=== PATIENT | male | born 1935 | race Caucasian/White ===

== ENCOUNTER → 2017-12-31 13:15 | Outpatient (CLI) | payer MEDICARE, OTHER, SELFPAY ==
--- NOTE | 2017-12-31 13:19 | RAD_ITS ---
STUDY: X-RAY - PELVIS AND LEFT HIP REASON FOR EXAM: Male, 82 years old. Post operative assessment TECHNIQUE: Three views of the pelvis and hip were obtained. COMPARISON: December 02, 2017 FINDINGS: The bowel gas pattern is unremarkable. Small sutures are again seen in the lower pelvis. There are mild degenerative changes in the lower lumbar spine. The visualized iliac wings, sacroiliac joints and sacrum are unremarkable. No abnormalities are seen in the visualized superior and inferior pubic rami. Normal appearing pubic symphysis. The visualized ischial tuberosities are unremarkable. Hardware is again seen in the proximal left femur. The hardware is intact. Subacute fractures are again seen in the intertrochanteric region of the left femur and in the lesser trochanter. There is callus formation around the lesser trochanter. The acetabulum shows no significant abnormalities. The hip joint is normal in appearance. RAD/Hip 2-3 Views with Pelvis IMPRESSION: Surgical changes are again seen in the proximal left femur. The hardware appears intact. Subacute fractures are again seen in the intertrochanteric region of the left femur and in the lesser trochanter with callus formation around the lesser trochanter. Electronically Signed: Hellen Sullivan MD at 0:54 EST Tel Direct: [phone], Service support ,
== END ==
PROVIDERS: Family Provider Family Medicine Geriatric Medicine; PCP Family Medicine Geriatric Medicine; Visit Provider Orthopaedic Surgery
DX: M25.552 Pain in left hip (principal)
CPT/HCPCS: 73502

== ENCOUNTER → 2018-05-09 05:00 | Outpatient (REF) | payer MEDICARE, OTHER, SELFPAY ==
[2018-05-10 07:50] LABS: Absolute Lymphocyte Count 1.95 X10^3/ul (0.83-4.51); Absolute Neutrophil Count 3.9 X10^3/uL (2.0-7.7); Basophil# 0.02 X10^3/uL; Basophil% 0.3 % (0-1); Eosinophil# 0.32 X10^3/uL; Eosinophils% 4.6 % (0-5); Hematocrit 41.4 % (40-54); Hemoglobin 13.2 g/dl (13.0-16.5); Lymphocyte # 1.95 X10^3/ul (4.0); Mean Corp Hgb Conc 31.9 g/gl (32-36); Mean Platelet Vol. 10.2 fl (6.2-12.0); Monocyte# 0.78 X10^3/uL; Monocyte% 11.2 % (0-10); Neutrophil # 3.89 X10^3/uL (2.7-7.7); Neutrophil % 55.8 % (47-70); Platelet Count 167 K/mm3 (150-450); RBC Distribution Width CV 16.5 % (11.6-14.6); RBC Distribution Width SD 54.1 fl (35.1-43.9); Red Blood Count 4.55 M/mm3 (4.6-6.2)
[2018-05-10 07:51] LABS: POSITIVE COUNT NO; POSITIVE DIFFERENTIAL NO; POSITIVE MORPHOLOGY NO
[2018-05-10 07:53] LABS: International Normalized Ratio 1.4; Prothrombin Time (Protime)PT. 16.7 SECONDS (11.7-14.9)
[2018-05-10 08:01] LABS: BUN 15 mg/dL (7-18); Creatinine, Serum 0.77 mg/dL (0.70-1.30); Glucose 84 mg/dL (74-106)
[2018-05-10 08:02] LABS: Anion Gap 7 (5-15); BUN/Creat Ratio 19.6 RATIO (10-20); Calcium,Total 8.7 mg/dL (8.5-10.1); Chloride 103 mmol/L (98-107); Cholesterol 104 mg/dL (200); EST Glomerular Filtration Rate 103 mL/min (>60); Est Glom Filt Rate - Afr Amer 125 mL/min (>60); High Density Lipoprotein 46 mg/dL; Potassium 4.5 mmol/L (3.5-5.1); Sodium Level 140 mmol/L (136-145); Triglycerides 50 mg/dL; Very Low Density Lipoprotein 10 mg/dL (5-40)
[2018-05-10 08:10] LABS: Valproic Acid (Depakene) Level 43 ug/mL (50-100)
== END ==
LOC: OLS.WHLCAR 05:00
PROVIDERS: Visit Provider Family Medicine
DX: D64.9 Anemia, unspecified (principal); F03.90 Unspecified dementia, unspecified severity, without behavioral disturbance, psychotic disturbance, mood disturbance, and anxiety; E78.5 Hyperlipidemia, unspecified; Z79.01 Long term (current) use of anticoagulants
CPT/HCPCS: 36415; 80048; 80061; 80164; 85025; 85610

== ENCOUNTER → 2018-05-12 05:00 | Outpatient (REF) | payer MEDICARE, OTHER, SELFPAY ==
[2018-05-12 08:01] LABS: International Normalized Ratio 1.5; Prothrombin Time (Protime)PT. 17.7 SECONDS (11.7-14.9)
== END ==
LOC: OLS.WHLCAR 05:00
PROVIDERS: Visit Provider Family Medicine
DX: D64.9 Anemia, unspecified (principal); F03.90 Unspecified dementia, unspecified severity, without behavioral disturbance, psychotic disturbance, mood disturbance, and anxiety; E78.5 Hyperlipidemia, unspecified; Z79.01 Long term (current) use of anticoagulants
CPT/HCPCS: 36415; 85610

== ENCOUNTER → 2018-05-13 06:26 | Outpatient (REF) | payer MEDICARE, OTHER, SELFPAY ==
[2018-05-13 07:41] LABS: Absolute Neutrophil Count 17.6 X10^3/uL (2.0-7.7); Basophil# 0.01 X10^3/uL; Basophil% 0.1 % (0-1); Hematocrit 42.6 % (40-54); Hemoglobin 13.6 g/dl (13.0-16.5); Lymphocyte % 4.5 % (19-41); Mean Corp Hgb Conc 31.9 g/gl (32-36); Mean Corpuscular Hgb 29.1 pg (27.0-32.0); Mean Corpuscular Volume 91.2 fL (80-94); Mean Platelet Vol. 10.8 fl (6.2-12.0); Monocyte# 1.26 X10^3/uL; Monocyte% 6.3 % (0-10); Neutrophil # 17.63 X10^3/uL (2.7-7.7); Neutrophil % 88.7 % (47-70); Platelet Count 134 K/mm3 (150-450); RBC Distribution Width CV 17.1 % (11.6-14.6); RBC Distribution Width SD 56.9 fl (35.1-43.9); Red Blood Count 4.67 M/mm3 (4.6-6.2); White Blood Count 19.9 K/mm3 (4.4-11.0)
[2018-05-13 07:42] LABS: POSITIVE COUNT NO; POSITIVE DIFFERENTIAL NO; POSITIVE MORPHOLOGY NO
[2018-05-13 07:50] LABS: Anion Gap 9 (5-15); BUN 32 mg/dL (7-18); Chloride 112 mmol/L (98-107); EST Glomerular Filtration Rate 44 mL/min (>60); Est Glom Filt Rate - Afr Amer 54 mL/min (>60); Glucose 146 mg/dL (74-106); Potassium 3.7 mmol/L (3.5-5.1); Sodium Level 143 mmol/L (136-145)
[2018-05-13 08:33] LABS: Color, Urine Red (Yellow); Glucose, Dipstick Normal (Normal); Ketone-Dipstick 5 mg/dl (Negative); Leukocyte Esterase-Dipstick 500 /ul (Negative); Nitrite-Dipstick Positive (Negative); Occult Blood-Urine 250 /ul (Negative); Protein-Dipstick 500 mg/dl (Negative); Urine Bilirubin Dipstick Negative (Negative); Urine Clarity Turbid (Clear); Urine Urobilinogen Normal (Normal)
== END ==
LOC: OLS.WHLCAR 06:26
PROVIDERS: Visit Provider Family Medicine
DX: D64.9 Anemia, unspecified (principal); N39.0 Urinary tract infection, site not specified; F03.90 Unspecified dementia, unspecified severity, without behavioral disturbance, psychotic disturbance, mood disturbance, and anxiety; E78.5 Hyperlipidemia, unspecified; R53.83 Other fatigue; R50.9 Fever, unspecified; E03.9 Hypothyroidism, unspecified; Z79.01 Long term (current) use of anticoagulants
CPT/HCPCS: 36415; 80048; 81002; 85025; 87077; 87086; 87088; 87186

== ENCOUNTER → 2018-05-16 05:00 | Outpatient (REF) | payer MEDICARE, OTHER, SELFPAY ==
[2018-05-16 09:25] LABS: Absolute Lymphocyte Count 1.19 X10^3/ul (0.83-4.51); Absolute Neutrophil Count 6.8 X10^3/uL (2.0-7.7); Basophil# 0.01 X10^3/uL; Basophil% 0.1 % (0-1); Eosinophil# 0.05 X10^3/uL; Eosinophils% 0.5 % (0-5); Hemoglobin 13.2 g/dl (13.0-16.5); Lymphocyte # 1.19 X10^3/ul (4.0); Lymphocyte % 12.7 % (19-41); Mean Corp Hgb Conc 31.4 g/gl (32-36); Mean Corpuscular Hgb 28.9 pg (27.0-32.0); Mean Corpuscular Volume 91.9 fL (80-94); Mean Platelet Vol. 10.8 fl (6.2-12.0); Monocyte# 1.35 X10^3/uL; Monocyte% 14.4 % (0-10); Neutrophil # 6.77 X10^3/uL (2.7-7.7); Neutrophil % 72.3 % (47-70); Platelet Count 128 K/mm3 (150-450); RBC Distribution Width CV 17.1 % (11.6-14.6); RBC Distribution Width SD 57.9 fl (35.1-43.9); Red Blood Count 4.57 M/mm3 (4.6-6.2); White Blood Count 9.4 K/mm3 (4.4-11.0)
[2018-05-16 09:32] LABS: POSITIVE COUNT NO; POSITIVE DIFFERENTIAL NO; POSITIVE MORPHOLOGY NO
[2018-05-16 09:37] LABS: International Normalized Ratio 3.4; Prothrombin Time (Protime)PT. 34.5 SECONDS (11.7-14.9)
[2018-05-16 09:42] LABS: Albumin, Serum 2.4 g/dL (3.2-5.0); Anion Gap 5 (5-15); BUN 25 mg/dL (7-18); BUN/Creat Ratio 30.8 RATIO (10-20); Calcium,Total 8.8 mg/dL (8.5-10.1); Chloride 114 mmol/L (98-107); Creatinine, Serum 0.81 mg/dL (0.70-1.30); EST Glomerular Filtration Rate 97 mL/min (>60); Est Glom Filt Rate - Afr Amer 117 mL/min (>60); Glucose 96 mg/dL (74-106); Potassium 3.6 mmol/L (3.5-5.1); Prealbumin 8.7 mg/dL (20.0-40.0); Sodium Level 151 mmol/L (136-145)
== END ==
LOC: OLS.WHLCAR 05:00
PROVIDERS: Visit Provider Family Medicine
DX: D64.9 Anemia, unspecified (principal); F03.90 Unspecified dementia, unspecified severity, without behavioral disturbance, psychotic disturbance, mood disturbance, and anxiety; E78.5 Hyperlipidemia, unspecified; Z79.01 Long term (current) use of anticoagulants
CPT/HCPCS: 36415; 80048; 82040; 84134; 85025; 85610

== ENCOUNTER → 2018-05-19 05:00 | Outpatient (REF) | payer MEDICARE, OTHER, SELFPAY ==
[2018-05-19 08:53] LABS: International Normalized Ratio 3.1; Prothrombin Time (Protime)PT. 31.9 SECONDS (11.7-14.9)
== END ==
LOC: OLS.WHLCAR 05:00
PROVIDERS: Visit Provider Family Medicine
DX: Z79.01 Long term (current) use of anticoagulants (principal)
CPT/HCPCS: 36415; 85610

== ENCOUNTER → 2018-05-23 05:00 | Outpatient (REF) | payer MEDICARE, SELFPAY ==
[2018-05-23 08:55] LABS: International Normalized Ratio 1.4; Prothrombin Time (Protime)PT. 17.2 SECONDS (11.7-14.9)
== END ==
LOC: OLS.WHLCAR 05:00
PROVIDERS: Visit Provider Family Medicine
DX: Z79.01 Long term (current) use of anticoagulants (principal)
CPT/HCPCS: 36415; 85610

== ENCOUNTER → 2018-05-30 05:00 | Outpatient (REF) | payer MEDICARE, OTHER, SELFPAY ==
[2018-05-30 09:48] LABS: International Normalized Ratio 1.5; Prothrombin Time (Protime)PT. 18.2 SECONDS (11.7-14.9)
== END ==
LOC: OLS.WHLCAR 05:00
PROVIDERS: Visit Provider Family Medicine
DX: Z79.01 Long term (current) use of anticoagulants (principal)
CPT/HCPCS: 36415; 85610

== ENCOUNTER → 2018-05-31 22:00 | Outpatient (REF) | payer MEDICARE, OTHER, SELFPAY ==
[2018-06-01 08:03] LABS: Color, Urine Yellow (Yellow); Glucose, Dipstick Normal (Normal); Ketone-Dipstick Negative (Negative); Leukocyte Esterase-Dipstick 500 /ul (Negative); Nitrite-Dipstick Negative (Negative); Occult Blood-Urine 250 /ul (Negative); Protein-Dipstick 100 mg/dl (Negative); Specific Gravity, Urine 1.015 (1.002-1.030); Urine Bilirubin Dipstick Negative (Negative); Urine Clarity Sl. Cloudy (Clear); Urine Urobilinogen Normal (Normal)
== END ==
LOC: OLS.WHLCAR 22:00
PROVIDERS: Visit Provider Family Medicine
DX: N39.0 Urinary tract infection, site not specified (principal)
CPT/HCPCS: 81002; 87077; 87086; 87088; 87186

== ENCOUNTER → 2018-06-06 05:00 | Outpatient (REF) | payer MEDICARE, OTHER, SELFPAY ==
[2018-06-06 09:27] LABS: International Normalized Ratio 1.1; Prothrombin Time (Protime)PT. 14.5 SECONDS (11.7-14.9)
[2018-06-06 09:33] LABS: Hematocrit 42.4 % (40-54); Hemoglobin 13.6 g/dl (13.0-16.5); Mean Corp Hgb Conc 32.1 g/gl (32-36); Mean Corpuscular Hgb 29.6 pg (27.0-32.0); Mean Corpuscular Volume 92.4 fL (80-94); Mean Platelet Vol. 10.2 fl (6.2-12.0); Platelet Count 226 K/mm3 (150-450); RBC Distribution Width CV 16.5 % (11.6-14.6); RBC Distribution Width SD 54.5 fl (35.1-43.9); Red Blood Count 4.59 M/mm3 (4.6-6.2)
[2018-06-06 09:38] LABS: Anion Gap 11 (5-15); BUN 18 mg/dL (7-18); BUN/Creat Ratio 21.2 RATIO (10-20); Calcium,Total 8.5 mg/dL (8.5-10.1); Chloride 102 mmol/L (98-107); Creatinine, Serum 0.85 mg/dL (0.70-1.30); EST Glomerular Filtration Rate 92 mL/min (>60); Est Glom Filt Rate - Afr Amer 111 mL/min (>60); Glucose 129 mg/dL (74-106); Potassium 4.1 mmol/L (3.5-5.1); Sodium Level 137 mmol/L (136-145)
[2018-06-06 09:40] LABS: Scan Indicated on CBC? Y/N NO
== END ==
LOC: OLS.WHLCAR 05:00
PROVIDERS: Visit Provider Family Medicine
DX: E78.5 Hyperlipidemia, unspecified (principal); E64.9 Sequelae of unspecified nutritional deficiency; F03.90 Unspecified dementia, unspecified severity, without behavioral disturbance, psychotic disturbance, mood disturbance, and anxiety; Z79.01 Long term (current) use of anticoagulants
CPT/HCPCS: 36415; 80048; 85027; 85610

== ENCOUNTER → 2018-06-13 05:00 | Outpatient (REF) | payer MEDICARE, OTHER, SELFPAY ==
[2018-06-13 09:36] LABS: International Normalized Ratio 1.5
== END ==
LOC: OLS.WHLCAR 05:00
PROVIDERS: Visit Provider Family Medicine
DX: Z79.01 Long term (current) use of anticoagulants (principal)
CPT/HCPCS: 36415; 85610

== ENCOUNTER → 2018-06-20 05:00 | Outpatient (REF) | payer MEDICARE, OTHER, SELFPAY ==
[2018-06-20 07:14] LABS: International Normalized Ratio 1.5; Prothrombin Time (Protime)PT. 17.7 SECONDS (11.7-14.9)
== END ==
LOC: OLS.WHLCAR 05:00
PROVIDERS: Visit Provider Family Medicine
DX: Z79.01 Long term (current) use of anticoagulants (principal)
CPT/HCPCS: 36415; 85610

== ENCOUNTER → 2018-06-27 05:00 | Outpatient (REF) | payer MEDICARE, OTHER, SELFPAY ==
[2018-06-27 10:01] LABS: International Normalized Ratio 2.1; Prothrombin Time (Protime)PT. 23.3 SECONDS (11.7-14.9)
== END ==
LOC: OLS.WHLCAR 05:00
PROVIDERS: Visit Provider Family Medicine
DX: E78.5 Hyperlipidemia, unspecified (principal); D64.9 Anemia, unspecified; F03.90 Unspecified dementia, unspecified severity, without behavioral disturbance, psychotic disturbance, mood disturbance, and anxiety
CPT/HCPCS: 36415; 85610

== ENCOUNTER → 2018-07-02 06:30 | Outpatient (REF) | payer MEDICARE, OTHER, SELFPAY | LOC: OLS.WHLCAR 06:30 | PROVIDERS: Visit Provider Family Medicine | DX: L02.31 Cutaneous abscess of buttock (principal); D64.9 Anemia, unspecified; R62.7 Adult failure to thrive | CPT/HCPCS: 87070; 87077; 87186; 87205 ==

== ENCOUNTER → 2018-07-04 05:00 | Outpatient (REF) | payer MEDICARE, OTHER, SELFPAY ==
[2018-07-04 09:58] LABS: International Normalized Ratio 2.4
== END ==
LOC: OLS.WHLCAR 05:00
PROVIDERS: Visit Provider Family Medicine
DX: D64.9 Anemia, unspecified (principal); F03.90 Unspecified dementia, unspecified severity, without behavioral disturbance, psychotic disturbance, mood disturbance, and anxiety; E78.5 Hyperlipidemia, unspecified
CPT/HCPCS: 36415; 85610

== ENCOUNTER → 2018-07-07 05:00 | Outpatient (REF) | payer MEDICARE, OTHER, SELFPAY ==
[2018-07-07 08:31] LABS: International Normalized Ratio 2.8; Prothrombin Time (Protime)PT. 29.4 SECONDS (11.7-14.9)
== END ==
LOC: OLS.WHLCAR 05:00
PROVIDERS: Visit Provider Family Medicine
DX: Z79.2 Long term (current) use of antibiotics (principal)
CPT/HCPCS: 36415; 85610

== ENCOUNTER → 2018-07-11 05:00 | Outpatient (REF) | payer MEDICARE, OTHER, SELFPAY ==
[2018-07-11 09:57] LABS: International Normalized Ratio 2.9; Prothrombin Time (Protime)PT. 30.6 SECONDS (11.7-14.9)
== END ==
LOC: OLS.WHLCAR 05:00
PROVIDERS: Visit Provider Family Medicine
DX: D64.9 Anemia, unspecified (principal); F03.90 Unspecified dementia, unspecified severity, without behavioral disturbance, psychotic disturbance, mood disturbance, and anxiety; E78.5 Hyperlipidemia, unspecified
CPT/HCPCS: 36415; 85610

== ENCOUNTER → 2018-07-14 05:00 | Outpatient (REF) | payer MEDICARE, OTHER, SELFPAY ==
[2018-07-14 09:21] LABS: International Normalized Ratio 2.6; Prothrombin Time (Protime)PT. 27.6 SECONDS (11.7-14.9)
== END ==
LOC: OLS.WHLCAR 05:00
PROVIDERS: Visit Provider Family Medicine
DX: Z79.2 Long term (current) use of antibiotics (principal)
CPT/HCPCS: 36415; 85610

== ENCOUNTER → 2018-07-18 05:00 | Outpatient (REF) | payer MEDICARE, OTHER, SELFPAY ==
[2018-07-18 10:03] LABS: Prothrombin Time (Protime)PT. 31.7 SECONDS (11.7-14.9)
== END ==
LOC: OLS.WHLCAR 05:00
PROVIDERS: Visit Provider Family Medicine
DX: D64.9 Anemia, unspecified (principal); F03.90 Unspecified dementia, unspecified severity, without behavioral disturbance, psychotic disturbance, mood disturbance, and anxiety; E78.5 Hyperlipidemia, unspecified
CPT/HCPCS: 36415; 85610

== ENCOUNTER → 2018-07-22 04:00 | Outpatient (REF) | payer MEDICARE, OTHER, SELFPAY ==
[2018-07-22 08:51] LABS: Bacteria 0 SEEN /hpf (None Seen); Mucous, Urine 0 SEEN /hpf (<or=2+); White Blood Cells 0 SEEN /hpf (0-5)
[2018-07-22 08:56] LABS: Color, Urine Yellow (Yellow); Glucose, Dipstick Normal (Normal); Ketone-Dipstick Negative (Negative); Leukocyte Esterase-Dipstick 500 /ul (Negative); Nitrite-Dipstick Positive (Negative); Occult Blood-Urine 250 /ul (Negative); Protein-Dipstick 100 mg/dl (Negative); Specific Gravity, Urine 1.015 (1.002-1.030); Urine Bilirubin Dipstick Negative (Negative); Urine Clarity Sl. Cloudy (Clear); Urine Urobilinogen Normal (Normal)
[2018-07-22 09:06] LABS: International Normalized Ratio 1.8
[2018-07-22 09:11] LABS: Squamous Epithelial Cells - UA 0-5 SEEN /hpf (0-5)
[2018-07-22 09:12] LABS: Amorphous Sediment 1+; Red Blood Cells-Urine 50-100 SEEN /hpf (0-5); Triple Phosphate Crystals Ur 4+ /hpf (<or=1+)
[2018-07-22 09:16] LABS: Valproic Acid (Depakene) Level 38 ug/mL (50-100)
== END ==
LOC: OLS.WHLCAR 04:00
PROVIDERS: Visit Provider Family Medicine
DX: D64.9 Anemia, unspecified (principal); F03.90 Unspecified dementia, unspecified severity, without behavioral disturbance, psychotic disturbance, mood disturbance, and anxiety; E78.5 Hyperlipidemia, unspecified; Z79.01 Long term (current) use of anticoagulants
CPT/HCPCS: 36415; 80164; 81001; 85610; 87077; 87086; 87088; 87186

== ENCOUNTER → 2018-07-30 07:15 | Outpatient (REF) | payer MEDICARE, OTHER, SELFPAY ==
[2018-07-30 08:22] LABS: International Normalized Ratio 2.4; Prothrombin Time (Protime)PT. 26.4 SECONDS (11.7-14.9)
== END ==
LOC: OLS.WHLCAR 07:15
PROVIDERS: Visit Provider Family Medicine
DX: D64.9 Anemia, unspecified (principal); F03.90 Unspecified dementia, unspecified severity, without behavioral disturbance, psychotic disturbance, mood disturbance, and anxiety; E78.5 Hyperlipidemia, unspecified; Z79.01 Long term (current) use of anticoagulants
CPT/HCPCS: 36415; 85610

== ENCOUNTER → 2018-08-01 05:00 | Outpatient (REF) | payer MEDICARE, OTHER, SELFPAY ==
[2018-08-01 08:53] LABS: International Normalized Ratio 1.7; Prothrombin Time (Protime)PT. 19.7 SECONDS (11.7-14.9)
== END ==
LOC: OLS.WHLCAR 05:00
PROVIDERS: Visit Provider Family Medicine
DX: D64.9 Anemia, unspecified (principal); F03.90 Unspecified dementia, unspecified severity, without behavioral disturbance, psychotic disturbance, mood disturbance, and anxiety; E78.5 Hyperlipidemia, unspecified; Z79.01 Long term (current) use of anticoagulants
CPT/HCPCS: 36415; 85610

== ENCOUNTER → 2018-08-08 05:00 | Outpatient (REF) | payer MEDICARE, OTHER, SELFPAY ==
[2018-08-08 07:45] LABS: International Normalized Ratio 2.7; Prothrombin Time (Protime)PT. 28.7 SECONDS (11.7-14.9)
== END ==
LOC: OLS.WHLCAR 05:00
PROVIDERS: Visit Provider Family Medicine
DX: D64.9 Anemia, unspecified (principal); F03.90 Unspecified dementia, unspecified severity, without behavioral disturbance, psychotic disturbance, mood disturbance, and anxiety; E78.5 Hyperlipidemia, unspecified; Z79.01 Long term (current) use of anticoagulants
CPT/HCPCS: 36415; 85610

== ENCOUNTER → 2018-08-15 05:00 | Outpatient (REF) | payer MEDICARE, OTHER, SELFPAY ==
[2018-08-15 08:16] LABS: International Normalized Ratio 1.7; Prothrombin Time (Protime)PT. 20.1 SECONDS (11.7-14.9)
== END ==
LOC: OLS.WHLCAR 05:00
PROVIDERS: Visit Provider Family Medicine
DX: D64.9 Anemia, unspecified (principal); F03.90 Unspecified dementia, unspecified severity, without behavioral disturbance, psychotic disturbance, mood disturbance, and anxiety; E78.5 Hyperlipidemia, unspecified; Z79.01 Long term (current) use of anticoagulants
CPT/HCPCS: 36415; 85610

== ENCOUNTER → 2018-08-22 05:00 | Outpatient (REF) | payer MEDICARE, OTHER, SELFPAY ==
[2018-08-22 08:10] LABS: Hematocrit 46.5 % (40-54); Mean Corp Hgb Conc 32.3 g/gl (32-36); Mean Corpuscular Hgb 30.1 pg (27.0-32.0); Mean Corpuscular Volume 93.2 fL (80-94); Mean Platelet Vol. 10.4 fl (6.2-12.0); Platelet Count 183 K/mm3 (150-450); RBC Distribution Width CV 14.3 % (11.6-14.6); RBC Distribution Width SD 48.3 fl (35.1-43.9); Red Blood Count 4.99 M/mm3 (4.6-6.2); White Blood Count 8.4 K/mm3 (4.4-11.0)
[2018-08-22 08:13] LABS: Scan Indicated on CBC? Y/N NO
[2018-08-22 08:19] LABS: Anion Gap 8 (5-15); BUN 13 mg/dL (7-18); BUN/Creat Ratio 16.4 RATIO (10-20); Calcium,Total 8.8 mg/dL (8.5-10.1); Chloride 104 mmol/L (98-107); Creatinine, Serum 0.79 mg/dL (0.70-1.30); EST Glomerular Filtration Rate 100 mL/min (>60); Est Glom Filt Rate - Afr Amer 121 mL/min (>60); Glucose 102 mg/dL (74-106); Potassium 4.1 mmol/L (3.5-5.1); Sodium Level 138 mmol/L (136-145)
[2018-08-22 08:34] LABS: International Normalized Ratio 2.3
== END ==
LOC: OLS.WHLCAR 05:00
PROVIDERS: Visit Provider Family Medicine
DX: D64.9 Anemia, unspecified (principal); F03.90 Unspecified dementia, unspecified severity, without behavioral disturbance, psychotic disturbance, mood disturbance, and anxiety; E78.5 Hyperlipidemia, unspecified; Z79.01 Long term (current) use of anticoagulants
CPT/HCPCS: 36415; 80048; 85027; 85610

== ENCOUNTER → 2018-08-29 05:00 | Outpatient (REF) | payer MEDICARE, OTHER, SELFPAY ==
[2018-08-29 08:31] LABS: International Normalized Ratio 2.8; Prothrombin Time (Protime)PT. 29.9 SECONDS (11.7-14.9)
== END ==
LOC: OLS.WHLCAR 05:00
PROVIDERS: Visit Provider Family Medicine
DX: D64.9 Anemia, unspecified (principal); F03.90 Unspecified dementia, unspecified severity, without behavioral disturbance, psychotic disturbance, mood disturbance, and anxiety; E78.5 Hyperlipidemia, unspecified; Z79.01 Long term (current) use of anticoagulants
CPT/HCPCS: 36415; 85610

== ENCOUNTER → 2018-09-05 04:00 | Outpatient (REF) | payer MEDICARE, OTHER, SELFPAY ==
[2018-09-05 09:02] LABS: International Normalized Ratio 1.3; Prothrombin Time (Protime)PT. 16.4 SECONDS (11.7-14.9)
== END ==
LOC: OLS.WHLCAR 04:00
PROVIDERS: Visit Provider Family Medicine
DX: D64.9 Anemia, unspecified (principal); F03.90 Unspecified dementia, unspecified severity, without behavioral disturbance, psychotic disturbance, mood disturbance, and anxiety; E78.5 Hyperlipidemia, unspecified; Z79.01 Long term (current) use of anticoagulants
CPT/HCPCS: 36415; 85610

== ENCOUNTER → 2018-09-12 05:00 | Outpatient (REF) | payer MEDICARE, OTHER, SELFPAY ==
[2018-09-12 09:05] LABS: International Normalized Ratio 1.9; Prothrombin Time (Protime)PT. 21.7 SECONDS (11.7-14.9)
== END ==
LOC: OLS.WHLCAR 05:00
PROVIDERS: Visit Provider Family Medicine
DX: D64.9 Anemia, unspecified (principal); F03.90 Unspecified dementia, unspecified severity, without behavioral disturbance, psychotic disturbance, mood disturbance, and anxiety; E78.5 Hyperlipidemia, unspecified; Z79.01 Long term (current) use of anticoagulants
CPT/HCPCS: 36415; 85610

== ENCOUNTER → 2018-09-19 05:00 | Outpatient (REF) | payer MEDICARE, OTHER, SELFPAY ==
[2018-09-19 08:51] LABS: Prothrombin Time (Protime)PT. 31.5 SECONDS (11.7-14.9)
== END ==
LOC: OLS.WHLCAR 05:00
PROVIDERS: Visit Provider Family Medicine
DX: D64.9 Anemia, unspecified (principal); F03.90 Unspecified dementia, unspecified severity, without behavioral disturbance, psychotic disturbance, mood disturbance, and anxiety; E78.5 Hyperlipidemia, unspecified; Z79.01 Long term (current) use of anticoagulants
CPT/HCPCS: 36415; 85610

== ENCOUNTER → 2018-09-19 23:00 | Outpatient (REF) | payer MEDICARE, OTHER, SELFPAY ==
[2018-09-20 09:00] LABS: Color, Urine Brown (Yellow); Glucose, Dipstick Normal (Normal); Ketone-Dipstick 5 mg/dl (Negative); Leukocyte Esterase-Dipstick 500 /ul (Negative); Nitrite-Dipstick Positive (Negative); Occult Blood-Urine 250 /ul (Negative); Protein-Dipstick 500 mg/dl (Negative); Urine Clarity Turbid (Clear); Urine Urobilinogen 1 mg/dl (Normal)
[2018-09-20 09:01] LABS: Urine Bilirubin Dipstick 1 mg/dL (Negative)
== END ==
LOC: OLS.WHLCAR 23:00
PROVIDERS: Visit Provider Family Medicine
DX: N39.0 Urinary tract infection, site not specified (principal); R31.9 Hematuria, unspecified
CPT/HCPCS: 81002; 87077; 87086; 87088; 87186

== ENCOUNTER → 2018-09-26 05:00 | Outpatient (REF) | payer MEDICARE, OTHER, SELFPAY ==
[2018-09-26 08:43] LABS: International Normalized Ratio 1.8; Prothrombin Time (Protime)PT. 21.2 SECONDS (11.7-14.9)
== END ==
LOC: OLS.WHLCAR 05:00
PROVIDERS: Visit Provider Family Medicine
DX: D64.9 Anemia, unspecified (principal); F03.90 Unspecified dementia, unspecified severity, without behavioral disturbance, psychotic disturbance, mood disturbance, and anxiety; E78.5 Hyperlipidemia, unspecified; Z79.01 Long term (current) use of anticoagulants
CPT/HCPCS: 36415; 85610

== ENCOUNTER → 2018-09-29 05:00 | Outpatient (REF) | payer MEDICARE, OTHER, SELFPAY ==
[2018-09-29 07:46] LABS: International Normalized Ratio 2.6; Prothrombin Time (Protime)PT. 28.1 SECONDS (11.7-14.9)
== END ==
LOC: OLS.WHLCAR 05:00
PROVIDERS: Visit Provider Family Medicine
DX: D64.9 Anemia, unspecified (principal); F03.90 Unspecified dementia, unspecified severity, without behavioral disturbance, psychotic disturbance, mood disturbance, and anxiety; E78.5 Hyperlipidemia, unspecified; Z79.01 Long term (current) use of anticoagulants
CPT/HCPCS: 36415; 85610

== ENCOUNTER → 2018-10-03 05:00 | Outpatient (REF) | payer MEDICARE, OTHER, SELFPAY ==
[2018-10-03 07:53] LABS: International Normalized Ratio 3.3; Prothrombin Time (Protime)PT. 34.1 SECONDS (11.7-14.9)
== END ==
LOC: OLS.WHLCAR 05:00
PROVIDERS: Visit Provider Family Medicine
DX: D64.9 Anemia, unspecified (principal); F03.90 Unspecified dementia, unspecified severity, without behavioral disturbance, psychotic disturbance, mood disturbance, and anxiety; E78.5 Hyperlipidemia, unspecified; Z79.01 Long term (current) use of anticoagulants
CPT/HCPCS: 36415; 85610

== ENCOUNTER → 2018-10-10 05:00 | Outpatient (REF) | payer MEDICARE, OTHER, SELFPAY ==
[2018-10-10 08:24] LABS: Prothrombin Time (Protime)PT. 38.1 SECONDS (11.7-14.9)
[2018-10-10 08:28] LABS: International Normalized Ratio 3.8
== END ==
LOC: OLS.WHLCAR 05:00
PROVIDERS: Visit Provider Family Medicine
DX: D64.9 Anemia, unspecified (principal); F03.90 Unspecified dementia, unspecified severity, without behavioral disturbance, psychotic disturbance, mood disturbance, and anxiety; E78.5 Hyperlipidemia, unspecified; Z79.01 Long term (current) use of anticoagulants
CPT/HCPCS: 36415; 85610

== ENCOUNTER → 2018-10-14 05:00 | Outpatient (REF) | payer MEDICARE, OTHER, SELFPAY ==
[2018-10-14 08:28] LABS: International Normalized Ratio 3.2; Prothrombin Time (Protime)PT. 32.6 SECONDS (11.7-14.9)
== END ==
LOC: OLS.WHLCAR 05:00
PROVIDERS: Visit Provider Family Medicine
DX: I25.10 Atherosclerotic heart disease of native coronary artery without angina pectoris (principal); Z79.01 Long term (current) use of anticoagulants
CPT/HCPCS: 36415; 85610

== ENCOUNTER → 2018-10-17 05:00 | Outpatient (REF) | payer MEDICARE, OTHER, SELFPAY ==
[2018-10-17 09:28] LABS: International Normalized Ratio 2.7; Prothrombin Time (Protime)PT. 28.9 SECONDS (11.7-14.9)
== END ==
LOC: OLS.WHLCAR 05:00
PROVIDERS: Visit Provider Family Medicine
DX: D64.9 Anemia, unspecified (principal); F03.90 Unspecified dementia, unspecified severity, without behavioral disturbance, psychotic disturbance, mood disturbance, and anxiety; E78.5 Hyperlipidemia, unspecified; Z79.01 Long term (current) use of anticoagulants
CPT/HCPCS: 36415; 85610

== ENCOUNTER → 2018-10-24 04:00 | Outpatient (REF) | payer MEDICARE, OTHER, SELFPAY ==
[2018-10-24 07:37] LABS: Prothrombin Time (Protime)PT. 37.2 SECONDS (11.7-14.9)
[2018-10-24 07:52] LABS: International Normalized Ratio 3.7
[2018-10-24 07:54] LABS: Cholesterol 96 mg/dL (200); High Density Lipoprotein 38 mg/dL; Triglycerides 57 mg/dL; Very Low Density Lipoprotein 11 mg/dL (5-40)
[2018-10-24 07:59] LABS: Valproic Acid (Depakene) Level 39 ug/mL (50-100)
--- OUTSIDE RECORDS SUMMARY | 2018-12-17 03:10 | XMS RPT_ITS ---
:1935 Author Organization OHIP Support Name Relationship Address Phone Anna Escobar Unavailable [address] + [address] [place] [address] R Unavailable Unavailable Unavailable Zulema Foster Unavailable [address] + [place] [address] Maddie Escobarila Unavailable [address] + [address] [place] [address] R Unavailable Unavailable Unavailable Zulema Foster Unavailable [address] + [place] [address] Shawn Anna Unavailable [address] + [address] [place] [address] R Unavailable Unavailable Unavailable KristinBhavik bentleyia Unavailable [address] + [place] [address] Shawn Anna Unavailable [address] + [address] [place] [address] R Unavailable Unavailable Unavailable Bhavik Fosteria Unavailable [address] + [place] [address] Shawn Anna Unavailable [address] + [address] [place] [address] R Unavailable Unavailable Unavailable Kristin Zulema Unavailable [address] + [place] [address] Shawn Anna Unavailable [address] + [address] [place] [address] R Unavailable Unavailable Unavailable KristinBhavik bentleyia Unavailable [address] + [place] [address] Shawn Anna Unavailable [address] + [address] [place] [address] R Unavailable Unavailable Unavailable Kristin, Zulema Unavailable [address] + [place] [address] ShawnMaddie westonila Unavailable [address] + [address] [place] [address] R Unavailable Unavailable Unavailable Kristin, Zulema Unavailable [address] + [place] [address] ShawnMaddieAnna Unavailable [address] + [address] [place] [address] R Unavailable Unavailable Unavailable Kristin, Zulema Unavailable [address] + [place] [address] ShawnMaddie westonila Unavailable [address] + [address] [place] [address] R Unavailable Unavailable Unavailable Kristin, Zulema Unavailable [address] + [place] [address] ShawnMaddie westonila Unavailable [address] + [address] [place] [address] R Unavailable Unavailable Unavailable Kristin, Zulema Unavailable [address] + [place] [address] ShawnMaddie westonila Unavailable [address] + [address] [place] [address] R Unavailable Unavailable Unavailable Kristin, Zulema Unavailable [address] + [place] [address] Maddie Escobarila Unavailable [address] + [address] [place] [address] R Unavailable Unavailable Unavailable Kristin, Zulema Unavailable [address] + [place] [address] Shawn Anna Unavailable [address] + [address] [place] [address] R Unavailable Unavailable Unavailable Kristin, Zulema Unavailable [address] + [place] [address] Shawn, Anna Unavailable [address] + [address] [place] [address] R Unavailable Unavailable Unavailable KristinZulema bentley Unavailable [address] + [place] [address] Shawn, Anna Unavailable [address] + [address] [place] [address] R Unavailable Unavailable Unavailable KristinBhavik bentleyia Unavailable [address] + [place] [address] Shawn, Anna Unavailable [address] + [address] [place] [address] R Unavailable Unavailable Unavailable KristinBhavik bentleyia Unavailable [address] + [place] [address] Shawn, Anna Unavailable [address] + [address] [place] [address] R Unavailable Unavailable Unavailable KristinBhavik bentleyia Unavailable [address] + [place] [address] Shawn, Anna Unavailable [address] + [address] [place] [address] R Unavailable Unavailable Unavailable KristinBhavik bentleyia Unavailable [address] + [place] [address] Shawn, Anna Unavailable [address] + [address] [place] [address] R Unavailable Unavailable Unavailable Zulema Foster Unavailable [address] + [place] [address] Shawn, Anna Unavailable [address] + [address] [place] [address] R Unavailable Unavailable Unavailable KristinZulema bentley Unavailable [address] + [place] [address] Shawn, Anna Unavailable [address] + [address] [place] [address] R Unavailable Unavailable Unavailable KristinZulema bentley Unavailable [address] + [place] [address] Shawn, Anna Unavailable [address] + [address] [place] [address] R Unavailable Unavailable Unavailable KristinBhavik bentleyia Unavailable [address] + [place] [address] Shawn, Anna Unavailable [address] + [address] [place] [address] R Unavailable Unavailable Unavailable KristinZulema bentley Unavailable [address] + [place] [address] Shawn, Anna Unavailable [address] + [address] [place] [address] R Unavailable Unavailable Unavailable KristinZulema bentley Unavailable [address] + [place] [address] Shawn, Anna Unavailable [address] + [address] [place] [address] R Unavailable Unavailable Unavailable Zulema Foster Unavailable [address] + [place] [address] Shawn, Anna Unavailable [address] + [address] [place] [address] R Unavailable Unavailable Unavailable Zulema Foster Unavailable [address] + [place] [address] Shawn, Anna Unavailable [address] + [address] [place] [address] R Unavailable Unavailable Unavailable Zulema Foster Unavailable [address] + [place] [address] Shawn, Anna Unavailable [address] + [address] [place] [address] R Unavailable Unavailable Unavailable Zulema Foster Unavailable [address] + [place] [address] Shawn, Anna Unavailable [address] + [address] [place] [address] R Unavailable Unavailable Unavailable Zulema Foster Unavailable [address] + [place] [address] Shawn, Anna Unavailable [address] + [address] [place] [address] R Unavailable Unavailable Unavailable Zulema Foster Unavailable [address] + [place] [address] Shawn, Anna Unavailable [address] + [address] [place] [address] R Unavailable Unavailable Unavailable Kirstin, Zulema Unavailable [address] + [place] [address] ShawnMaddie westonila Unavailable [address] + [address] [place] [address] R Unavailable Unavailable Unavailable Kristin, Zulema Unavailable [address] + [place] [address] ShawnMaddieAnna Unavailable [address] + [address] [place] [address] R Unavailable Unavailable Unavailable Kristin, Zulema Unavailable [address] + [place] [address] ShawnMaddie westonila Unavailable [address] + [address] [place] [address] R Unavailable Unavailable Unavailable Kristin, Zulema Unavailable [address] + [place] [address] ShawnMaddie westonila Unavailable [address] + [address] [place] [address] R Unavailable Unavailable Unavailable Kristin, Zulema Unavailable [address] + [place] [address] ShawnMaddie westonila Unavailable [address] + [address] [place] [address] R Unavailable Unavailable Unavailable Kristin, Zulema Unavailable [address] + [place] [address] Maddie Escobarila Unavailable [address] + [address] [place] [address] R Unavailable Unavailable Unavailable Kristin, Zulema Unavailable [address] + [place] [address] Shawn Anna Unavailable [address] + [address] [place] [address] R Unavailable Unavailable Unavailable Kristin, Zulema Unavailable [address] + [place] [address] Shawn, Anna Unavailable [address] + [address] [place] [address] R Unavailable Unavailable Unavailable KristinZulema bentley Unavailable [address] + [place] [address] SHAWN, ANNA Unavailable [address] + [address] [place] [address] R Unavailable Unavailable Unavailable KRISTINBHAVIK BENTLEYIA Unavailable [address] + [place] [address] SHAWN, ANNA Unavailable [address] + [address] [place] [address] R Unavailable Unavailable Unavailable KRISTINBHAVIK BENTLEYIA Unavailable [address] + [place] [address] SHAWN, ANNA Unavailable [address] + [address] [place] [address] R Unavailable Unavailable Unavailable KRISTINBHAVIK BENTLEYIA Unavailable [address] + [place] [address] SHAWN, ANNA Unavailable [address] + [address] [place] [address] R Unavailable Unavailable Unavailable KRISTINBHAVIK BENTLEYIA Unavailable [address] + [place] [address] SHAWN, ANNA Unavailable [address] + [address] [place] [address] R Unavailable Unavailable Unavailable ZULEMA FOSTER Unavailable [address] + [place] [address] SHAWN, ANNA Unavailable [address] + [address] [place] [address] R Unavailable Unavailable Unavailable KRISTINZULEMA BENTLEY Unavailable [address] + [place] [address] SHAWN, ANNA Unavailable [address] + [address] [place] [address] R Unavailable Unavailable Unavailable KRISTINZULEMA BENTLEY Unavailable [address] + [place] [address] SHAWN, ANNA Unavailable [address] + [address] [place] [address] R Unavailable Unavailable Unavailable KRISTINBHAVIK BENTLEYIA Unavailable [address] + [place] [address] SHAWN ANNA Unavailable [address] + [address] [place] [address] R Unavailable Unavailable Unavailable KRISTIN, ZULEMA Unavailable [address] + [place] [address] SHAWN ANNA Unavailable [address] + [address] [place] [address] R Unavailable Unavailable Unavailable KRISTIN, ZULEMA Unavailable [address] + [place] [address] SHAWN, ANNA Unavailable [address] + [address] [place] [address] R Unavailable Unavailable Unavailable KRISTIN, ZULEMA Unavailable [address] + [place] [address] MADDIE ESCOBARILA Unavailable [address] + [address] [place] [address] R Unavailable Unavailable Unavailable KRISTIN, ZULEMA Unavailable [address] + [place] [address] ANNA ESCOBAR Unavailable [address] + [address] [place] [address] R Unavailable Unavailable Unavailable KRISTIN, ZULEMA Unavailable [address] + [place] [address] MADDIE ESCOBARILA Unavailable [address] + [address] [place] [address] R Unavailable Unavailable Unavailable KRISTIN, ZULEMA Unavailable [address] + [place] [address] MADDIE ESCOBARILA Unavailable [address] + [address] [place] [address] R Unavailable Unavailable Unavailable KRISTIN, ZULEMA Unavailable [address] + [place] [address] Care Team Providers Name Role Phone Mark Winn Attending Unavailable Hakan Hoffmann Attending Unavailable Dread, Juan Chi Referring Unavailable Dread, Juan Chi Primary Care Unavailable Sal Beltran Admitting Unavailable Odilon Slade Consulting Unavailable Ricardo Davenport Attending Unavailable Odilon Slade Attending Unavailable Julio Cesar Kinney Attending Unavailable Julio Cesar Kinney Attending Unavailable Sal Beltran Attending Unavailable Ricardo Davenport Attending Unavailable Berlin, Odilon Attending Unavailable Dread, Juan Chi Referring Unavailable Dread, Juan Chi Primary Care Unavailable Berlin, Odilon Attending Unavailable Dread, Juan Chi Primary Care Unavailable Berlin, Odilon Attending Unavailable Dread, Juan Chi Referring Unavailable Dread, Juan Chi Primary Care Unavailable Berlin, Odilon Attending Unavailable Dread, Juan Chi Primary Care Unavailable Carmen Donald Attending Unavailable Hakan Hoffmann Attending Unavailable Dread, Juan Chi Referring Unavailable Dread, Juan Chi Primary Care Unavailable Shun, Hakan Attending Unavailable Dread, Juan Chi Referring Unavailable Dread, Juan Chi Primary Care Unavailable Berlin, Odilon Attending Unavailable Dread, Juan Chi Referring Unavailable Winn, Mark Attending Unavailable Winn, Mark Attending Unavailable Winn, Mark Attending Unavailable Winn, Mark Attending Unavailable Winn, Mark Attending Unavailable Winn, Mark Attending Unavailable Winn, Mark Attending Unavailable Winn, Mark Attending Unavailable Winn, Mark Attending Unavailable Winn, Mark Attending Unavailable Winn, Mark Attending Unavailable Winn, Mark Attending Unavailable Winn, Mark Attending Unavailable Winn, Mark Attending Unavailable Dread, Juan Chi Referring Unavailable Shun, Hakan Attending Unavailable Dread, Juan Chi Referring Unavailable Winn, Mark Attending Unavailable Winn, Mark Attending Unavailable Winn, Mark Attending Unavailable Winn, Mark Attending Unavailable Winn, Mark Attending Unavailable Winn, Mark Attending Unavailable Winn, Mark Attending Unavailable Winn, Mark Attending Unavailable Winn, Mark Attending Unavailable Winn, Mark Attending Unavailable Winn, Mark Attending Unavailable Winn, Mark Attending Unavailable Winn, Mark Attending Unavailable Winn, Mark Attending Unavailable Winn, Mark Attending Unavailable Winn, Mark Attending Unavailable Winn, Mark Attending Unavailable Winn, Mark Attending Unavailable Winn, Mark Attending Unavailable Winn, Mark Attending Unavailable Winn, Mark Attending Unavailable Winn, Mark Attending Unavailable Winn, Mark Attending Unavailable PROBLEMS PROBLEMS DATE TYPE CONDITION / CODE ATTENDING STATUS SOURCE 11/03/2018 Unknown E78.5 - Mark Winn Active [facility] Hyperlipidemia, Community unspecified / Hospital E78.5(ICD-10) Repository 11/03/2018 Unknown 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 [facility] (current) use of Community anticoagulants / Hospital Z79.01(ICD-10) Repository 11/03/2018 Unknown D64.9 - Anemia, Mark Winn Active [place] unspecified / Community D64.9(ICD-10) Hospital Repository 11/03/2018 Unknown F03.90 - Unspecified Mark Winn Active [facility] 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 Hospital disturbance / Repository F03.90(ICD-10) 10/28/2018 Unknown N39.0 - Urinary tract Mark Winn infection, site not Community specified / Hospital N39.0(ICD-10) Repository 09/02/2018 Unknown Z79.2 - extermination inspector Mark Winn (current) use of Community antibiotics / Hospital Z79.2(ICD-10) Repository 08/24/2018 Unknown 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 / Community R62.7(ICD-10) Hospital Repository 03/07/2018 Unknown 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 / I25.10(ICD-10) 03/07/2018 Unknown I48.0 - Paroxysmal Hakan Hoffmann atrial fibrillation / Community I48.0(ICD-10) Hospital Repository 12/31/2017 Unknown M25.552 - Pain in Odilon Slade left hip / Community M25.552(ICD-10) Hospital Repository 12/02/2017 Unknown S72.002A - Fracture Odilon Slade of unspecified part Community of neck of left Hospital femur, initial Repository encounter for closed fracture / S72.002A(ICD-10) PROCEDURES PROCEDURES No Procedure Records FoundRESULTS RESULTS PROTHROMBIN TIME W/INR Collected: 11/07/2018 Status: F Source: [place] 5:43 AM [facility] REPOSITORY TYPE CODE TESTS RESULT OUT OF RANGE REFERENCE UNITS LAB L300.4150 11.7-14.9 SECONDS High PROTIME 22.0 LAB L300.4200 Normal INR 1.9 Performed By: #### L300.3900 #### [facility] [address] [place], [address] PROTHROMBIN TIME W/INR Collected: 10/31/2018 Status: F Source: [place] 6:10 AM [facility] REPOSITORY Order Comment: RM 317 TYPE CODE TESTS RESULT OUT OF REFERENCE UNITS RANGE LAB L300.4150 11.7-14.9 SECONDS High PROTIME 37.8 LAB L300.4200 High alert INR 3.8 Result Comment: CRITICAL VALUE VERIFIED. CALLED TO JENELLE ([facility]) 10/31/18 0908 Chandra Ling. RESULTS READ BACK BY SAME . Performed By: #### L300.3900 #### [facility] [address] [place], [place], [id number] PROTHROMBIN TIME W/INR Collected: 10/24/2018 Status: F Source: [place] 6:55 AM [facility] REPOSITORY Order Comment: ROOM 317 TYPE CODE TESTS RESULT OUT OF REFERENCE UNITS RANGE LAB L300.4150 11.7-14.9 SECONDS High PROTIME 37.2 LAB L300.4200 High alert INR 3.7 Result Comment: CRITICAL VALUE VERIFIED. CALLED TO [facility] 10/24/18 Juanito2 Joi Lacy. RESULTS READ BACK BY SAME . Performed By: #### L300.3900 #### [facility] [address] [place], [place], [id number] LIPID PROFILE Collected: 10/24/2018 Status: F Source: [place] 6:55 AM [facility] REPOSITORY Order Comment: ROOM 317 TYPE CODE TESTS RESULT OUT OF RANGE REFERENCE UNITS LAB L501.4900 200 mg/dL Normal CHOL 96 Result Comment: <200 mg/dL Desirable 200-240 mg/dL Borderline >240 mg/dL High Risk LAB L501.5000 mg/dL Normal TRIG 57 Result Comment: The drugs N-Acetylcysteine and Metamizole may falsely depress this assay. Serum Triglycerides Reference Interval Normal <150 mg/dL Borderline high 150 - 199 mg/dL High 200 - 499 mg/dL Very High > or = 500 mg/dL LAB L501.6400 mg/dL Low HDL 38 Result Comment: The drugs N-Acetylcysteine and Metamizole may falsely depress this assay. Reference Range HDL <40 mg/dL Low HDL Cholesterol HDL >or= 60 mg/dL High HDL Cholesterol LAB L501.6500 0-130 mg/dL Normal LDL 47 LAB L501.6600 5-40 mg/dL Normal VLDL 11 Performed By: #### L500.4100 #### [facility] [address] [place], [place], [id number] VALPROIC ACID Collected: 10/24/2018 Status: F Source: [place] ([place]) LEVEL 6:55 AM [facility] REPOSITORY Order Comment: ROOM 317 TYPE CODE TESTS RESULT OUT OF REFERENCE UNITS RANGE LAB L501.8100 50-100 ug/mL Low VALPROIC ACID 39 Performed By: #### L501.8100 #### [facility] [address] [facility] [place], [address] PROTHROMBIN TIME W/INR Collected: 10/17/2018 Status: F Source: [place] 7:15 AM [facility] REPOSITORY Order Comment: 317 TYPE CODE TESTS RESULT OUT OF RANGE REFERENCE UNITS LAB L300.4150 11.7-14.9 SECONDS High PROTIME 28.9 LAB L300.4200 Normal INR 2.7 Performed By: #### L300.3900 #### [facility] [address] [facility] [place], [address] PROTHROMBIN TIME W/INR Collected: 10/14/2018 Status: F Source: [place] 7:25 AM [facility] REPOSITORY Order Comment: ROOM 317 TYPE CODE TESTS RESULT OUT OF RANGE REFERENCE UNITS LAB L300.4150 11.7-14.9 SECONDS High PROTIME 32.6 LAB L300.4200 Normal INR 3.2 Performed By: #### L300.3900 #### [facility] [place], [address] PROTHROMBIN TIME W/INR Collected: 10/10/2018 Status: F Source: [place] 7:00 AM [facility] REPOSITORY TYPE CODE TESTS RESULT OUT OF REFERENCE UNITS RANGE LAB L300.4150 11.7-14.9 SECONDS High PROTIME 38.1 LAB L300.4200 High alert INR 3.8 Result Comment: CRITICAL VALUE VERIFIED. CALLED TO YENNIFER ORNELAS 10/10/18 0828 Zoran Interiano. RESULTS READ BACK BY SAME. Performed By: #### L300.3900 #### [facility] [address] [facility] [place], [address] PROTHROMBIN TIME W/INR Collected: 10/03/2018 Status: F Source: [place] 6:55 AM [facility] REPOSITORY TYPE CODE TESTS RESULT OUT OF RANGE REFERENCE UNITS LAB L300.4150 11.7-14.9 SECONDS High PROTIME 34.1 LAB L300.4200 Normal INR 3.3 Performed By: #### L300.3900 #### [facility] [address] [place], [address] PROTHROMBIN TIME W/INR Collected: 09/29/2018 Status: F Source: [place] 6:30 AM [facility] REPOSITORY TYPE CODE TESTS RESULT OUT OF RANGE REFERENCE UNITS LAB L300.4150 11.7-14.9 SECONDS High PROTIME 28.1 LAB L300.4200 Normal INR 2.6 Performed By: #### L300.3900 #### [facility] [address] [place], [address] PROTHROMBIN TIME W/INR Collected: 09/26/2018 Status: F Source: [place] 7:15 AM [facility] REPOSITORY Order Comment: 317 TYPE CODE TESTS RESULT OUT OF RANGE REFERENCE UNITS LAB L300.4150 11.7-14.9 SECONDS High PROTIME 21.2 LAB L300.4200 Normal INR 1.8 Performed By: #### L300.3900 #### [facility] [address] [place], [address] URINALYSIS, ROUTINE Collected: 09/19/2018 Status: F Source: [place] (DIPSTICK) 11:00 PM [facility] REPOSITORY Order Comment: COLOR OF URINE MAY AFFECT DIPSTICK RESULTS. How was Urine Obtained? CATHETER SPECIMEN TYPE CODE TESTS RESULT OUT OF RANGE REFERENCE UNITS LAB L400.3000 Yellow COLOR Normal Brown LAB L400.3050 Clear Normal CLARITY Turbid LAB L400.3200 Normal mg/dl Normal GLUCOSE, UR Normal LAB L400.3300 Negative mg/dL High BILIRUBIN URINE 1 Result Comment: COLOR OF URINE MAY AFFECT DIPSTICK RESULTS. LAB L400.3400 Negative mg/dl High KETONE UR 5 LAB L400.3465 1.002-1.030 Normal SP.GR. DIPSTX 1.020 LAB L400.3550 5.0 - 8.0 pH Normal UR 7.0 LAB L400.3600 Negative mg/dl High PROT DIPSTX 500 LAB L400.3700 Normal mg/dl High UROBILI 1 LAB L400.3750 Negative High NITRITE UR Positive LAB L400.3780 Negative /ul High OCCULT 250 BLOOD-UR LAB L400.3800 Negative /ul High LEUK ESTERASE 500 Performed By: #### L400.2011 #### [facility] [address] [place] [address], [address] Observed: 09/19/2018 Status: F Source: [place] CULTURE, URINE 11:00 PM [facility] REPOSITORY Urine Culture ORGANISM 1: Coag Negative Staph [place] Count >100,000 Coag Negative Staph: REACTION Benzylpenicillin NF >=0.5 R Cefoxitin *NF + Inducable Clindamycin Resistan - Gentamicin $ 1 S Levofloxacin $ >=8 R Nitrofurantoin $ <=16 S Oxacillin NF >=4 R Rifampin $$ <=0.5 S Tetracycline NF >=16 R Vancomycin $ <=0.5 S (NF) indicates non-formulary drug at [facility]. Approval by Infectious Disease Specialist required before non-formulary drugs may be ordered and/or dispensed. * CLSI guidelines does not recommend testing of cephalosporins. This interpretation is deduced from Beta-lactam/penicillin results. Performed By: #### M100.0650 #### [facility] [address] [place] [address]. [place], [place], [address] PROTHROMBIN TIME W/INR Collected: 09/19/2018 Status: F Source: [place] 7:00 AM [facility] REPOSITORY TYPE CODE TESTS RESULT OUT OF RANGE REFERENCE UNITS LAB L300.4150 11.7-14.9 SECONDS High PROTIME 31.5 LAB L300.4200 Normal INR 3.0 Performed By: #### L300.3900 #### [facility] [facility] [place], [place], [address] PROTHROMBIN TIME W/INR Collected: 09/12/2018 Status: F Source: [place] 7:25 AM [facility] REPOSITORY TYPE CODE TESTS RESULT OUT OF RANGE REFERENCE UNITS LAB L300.4150 11.7-14.9 SECONDS High PROTIME 21.7 LAB L300.4200 Normal INR 1.9 Performed By: #### L300.3900 #### [facility] [address] [place] [address]. [place], [place], [address] PROTHROMBIN TIME W/INR Collected: 09/05/2018 Status: F Source: [place] 7:15 AM [facility] REPOSITORY Order Comment: ROOM 317 TYPE CODE TESTS RESULT OUT OF RANGE REFERENCE UNITS LAB L300.4150 11.7-14.9 SECONDS High PROTIME 16.4 LAB L300.4200 Normal INR 1.3 Performed By: #### L300.3900 #### [facility] [address] [place], [address] PROTHROMBIN TIME W/INR Collected: 08/29/2018 Status: F Source: [place] 7:20 AM [facility] REPOSITORY TYPE CODE TESTS RESULT OUT OF RANGE REFERENCE UNITS LAB L300.4150 11.7-14.9 SECONDS High PROTIME 29.9 LAB L300.4200 Normal INR 2.8 Performed By: #### L300.3900 #### [facility] [address] [facility] [place], [place], [address] CBC-COMPLETE BLOOD CNT Collected: 08/22/2018 Status: F Source: [place] NO DIFF 7:20 AM [facility] REPOSITORY TYPE CODE TESTS RESULT OUT OF RANGE REFERENCE UNITS LAB L100.1000 4.4-11.0 K/mm3 Normal WBC 8.4 LAB L100.1200 4.6-6.2 M/mm3 Normal RBC 4.99 LAB L100.1300 13.0-16.5 g/dl Normal HGB 15.0 LAB L100.1400 40-54 % Normal HCT 46.5 LAB L100.1500 80-94 fL Normal MCV 93.2 LAB L100.1600 27.0-32.0 pg Normal MCH 30.1 LAB L100.1700 32-36 g/gl Normal MCHC 32.3 LAB L100.1810 11.6-14.6 % Normal RDW CV 14.3 LAB L100.1820 35.1-43.9 fl High RDW SD 48.3 LAB L100.1900 150-450 K/mm3 Normal PLT 183 LAB L100.2000 6.2-12.0 fl Normal MPV 10.4 Performed By: #### L100.0500 #### [facility] [address] [place], [address] BASIC METABOLIC Collected: 08/22/2018 Status: F Source: [place] PROFILE (BMP) 7:20 AM [facility] TYPE CODE TESTS RESULT OUT OF RANGE REFERENCE UNITS LAB L501.0100 74-106 mg/dL Normal GLU 102 Result Comment: Fasting Glucose result from 100 to 125 mg/dL suggests IMPAIRED HOMEOSTASIS per A.D.A. criteria. Please note revised GLUCOSE reference range effective 2017. LAB L501.1000 7-18 mg/dL Normal BUN 13 LAB L501.1100 0.70-1.30 mg/dL Normal CREAT,SERUM 0.79 Result Comment: The validity of the calculated GFR AND GFRAA in patients over 70 years has not been determined. Clinical correlation is essential. LAB L501.1110 >60 mL/min Normal EST GFR 100 Result Comment: Non- GFR Calc LAB L501.1115 >60 mL/min Normal EST GFR - AA 121 Result Comment: GFR Calc LAB L501.1300 10-20 RATIO Normal BUN/CRE 16.4 LAB L501.2200 8.5-10.1 mg/dL CA Normal 8.8 LAB L501.5300 136-145 mmol/L NA Normal 138 LAB L501.5600 3.5-5.1 mmol/L K Normal 4.1 LAB L501.5900 98-107 mmol/L CL Normal 104 LAB L501.6100 21.0-32.0 mmol/L Normal CO2 26.0 LAB L501.6200 5-15 Normal GAP 8 Performed By: #### L500.2500 #### [facility] [address] [place], [address] PROTHROMBIN TIME W/INR Collected: 08/22/2018 Status: F Source: [place] 7:20 AM [facility] TYPE CODE TESTS RESULT OUT OF RANGE REFERENCE UNITS LAB L300.4150 11.7-14.9 SECONDS High PROTIME 25.0 LAB L300.4200 Normal INR 2.3 Performed By: #### L300.3900 #### [facility] [address] [place], [address] PROTHROMBIN TIME W/INR Collected: 08/15/2018 Status: F Source: [place] 6:00 AM [facility] TYPE CODE TESTS RESULT OUT OF RANGE REFERENCE UNITS LAB L300.4150 11.7-14.9 SECONDS High PROTIME 20.1 LAB L300.4200 Normal INR 1.7 Performed By: #### L300.3900 #### [facility] [address] [place], [place], [id number] PROTHROMBIN TIME W/INR Collected: 08/08/2018 Status: F Source: [place] 6:50 AM [facility] TYPE CODE TESTS RESULT OUT OF RANGE REFERENCE UNITS LAB L300.4150 11.7-14.9 SECONDS High PROTIME 28.7 LAB L300.4200 Normal INR 2.7 Performed By: #### L300.3900 #### [facility] [address] [place], [place], [address] PROTHROMBIN TIME W/INR Collected: 08/01/2018 Status: F Source: [place] 7:15 AM [facility] Order Comment: 317 TYPE CODE TESTS RESULT OUT OF RANGE REFERENCE UNITS LAB L300.4150 11.7-14.9 SECONDS High PROTIME 19.7 LAB L300.4200 Normal INR 1.7 Performed By: #### L300.3900 #### [facility] [address] [place], [place], [address] [phone] PROTHROMBIN TIME W/INR Collected: 07/30/2018 Status: F Source: [place] 7:15 AM [facility] TYPE CODE TESTS RESULT OUT OF RANGE REFERENCE UNITS LAB L300.4150 11.7-14.9 SECONDS High PROTIME 26.4 LAB L300.4200 Normal INR 2.4 Performed By: #### L300.3900 #### [facility] [address] [place], [place], [address] [phone] PROTHROMBIN TIME W/INR Collected: 07/22/2018 Status: F Source: [place] 7:55 AM [facility] Order Comment: ROOM 317 TYPE CODE TESTS RESULT OUT OF RANGE REFERENCE UNITS LAB L300.4150 11.7-14.9 SECONDS High PROTIME 21.0 LAB L300.4200 Normal INR 1.8 Performed By: #### L300.3900 #### [facility] [address] [place], [address] VALPROIC ACID Collected: 07/22/2018 Status: F Source: [place] ([place]) LEVEL 7:55 AM [facility] Order Comment: ROOM 317 TYPE CODE TESTS RESULT OUT OF REFERENCE UNITS RANGE LAB L501.8100 50-100 ug/mL Low VALPROIC ACID 38 Performed By: #### L501.8100 #### [facility] [address] [place], [address] URINALYSIS, COMPLETE Collected: 07/21/2018 Status: F Source: [place] 4:00 PM [facility] Order Comment: How was Urine Obtained? Urine, Random TYPE CODE TESTS RESULT OUT OF RANGE REFERENCE UNITS LAB L400.3000 Yellow COLOR Normal Yellow LAB L400.3050 Clear Normal CLARITY Sl. Cloudy LAB L400.3200 Normal mg/dl Normal GLUCOSE, UR Normal LAB L400.3300 Negative mg/dL Normal BILIRUBIN URINE Negative LAB L400.3400 Negative mg/dl Normal KETONE UR Negative LAB L400.3465 1.002-1.030 Normal SP.GR. DIPSTX 1.015 LAB L400.3550 5.0 - 8.0 pH UR Normal 9.0 LAB L400.3600 Negative mg/dl High PROT DIPSTX 100 LAB L400.3700 Normal mg/dl Normal UROBILI Normal LAB L400.3750 Negative High NITRITE UR Positive LAB L400.3780 Negative /ul High OCCULT BLOOD-UR 250 LAB L400.3800 Negative /ul High LEUK ESTERASE 500 LAB L400.4050 0-5 /hpf WBC 0 Normal SEEN LAB L400.4100 0-5 /hpf Normal RBC-UA 50-100 SEEN LAB L400.4150 0-5 /hpf SQUAM Normal EPI 0-5 SEEN LAB L400.4300 None Seen /hpf 0 Normal BACTERIA SEEN LAB L400.4350 <or=2+ /hpf 0 Normal MUCUS, URINE SEEN LAB L400.4800 <or=1+ /hpf 4+ Normal TRIPLE PHOS LAB L400.4900 1+ Normal AMORPHOUS Performed By: #### L400.0001 #### [facility] [address] [place], [address] Observed: 07/21/2018 Status: F Source: [place] CULTURE, URINE 4:00 PM [facility] Urine Culture ORGANISM 1: Proteus mirabilis [place] Count >100,000 Proteus mirabilis: REACTION Amoxacillin/Clavulanic Acid $ <=2 S Ampicillin $ >=32 R Ampicillin/Sulbactam $ 8 S Cefazolin $ <=4 S Cefepime $ <=1 S Ceftriaxone $ <=1 S Ciprofloxacin $ >=4 R Ertapenim $$$ <=0.5 S Gentamicin $ <=1 S Levofloxacin $ >=8 R Nitrofurantoin $ 128 R Piperacillin/Tazobactam $$ <=4 S Tobramycin $ <=1 S Trimethoprim/Sulfametho $ >=320 R (NF) indicates non-formulary drug at [facility]. Approval by Infectious Disease Specialist required before non-formulary drugs may be ordered and/or dispensed. Performed By: #### M100.0650 #### [facility] [address] [place] [address]. [place], [address] PROTHROMBIN TIME W/INR Collected: 07/18/2018 Status: F Source: [place] 6:20 AM [facility] Order Comment: 317 TYPE CODE TESTS RESULT OUT OF RANGE REFERENCE UNITS LAB L300.4150 11.7-14.9 SECONDS High PROTIME 31.7 LAB L300.4200 Normal INR 3.0 Performed By: #### L300.3900 #### [facility] [address] [place] [address]. [place], [address] PROTHROMBIN TIME W/INR Collected: 07/14/2018 Status: F Source: [place] 6:45 AM [facility] Order Comment: ROOM 317 TYPE CODE TESTS RESULT OUT OF RANGE REFERENCE UNITS LAB L300.4150 11.7-14.9 SECONDS High PROTIME 27.6 LAB L300.4200 Normal INR 2.6 Performed By: #### L300.3900 #### [facility] [address] [place] [address]. [place], [address] PROTHROMBIN TIME W/INR Collected: 07/11/2018 Status: F Source: [place] 5:15 AM [facility] Order Comment: 317 TYPE CODE TESTS RESULT OUT OF RANGE REFERENCE UNITS LAB L300.4150 11.7-14.9 SECONDS High PROTIME 30.6 LAB L300.4200 Normal INR 2.9 Performed By: #### L300.3900 #### [facility] [address] [place], [address] PROTHROMBIN TIME W/INR Collected: 07/07/2018 Status: F Source: [place] 6:15 AM [facility] Order Comment: 317 TYPE CODE TESTS RESULT OUT OF RANGE REFERENCE UNITS LAB L300.4150 11.7-14.9 SECONDS High PROTIME 29.4 LAB L300.4200 Normal INR 2.8 Performed By: #### L300.3900 #### [facility] [address] [place], [address] PROTHROMBIN TIME W/INR Collected: 2018 Status: F Source: [place] 9:20 AM [facility] Order Comment: 317 TYPE CODE TESTS RESULT OUT OF RANGE REFERENCE UNITS LAB L300.4150 11.7-14.9 SECONDS High PROTIME 26.0 LAB L300.4200 Normal INR 2.4 Performed By: #### L300.3900 #### [facility] [address] [place], [address] Observed: 07/02/2018 Status: F Source: [place] CULTURE, WOUND 6:30 AM [facility] Gram Stain Gram Stain 1+ Red Blood Cells No White Blood Cells 2+ Gram positive cocci Wound Culture RESULTS FAXED TO [facility] 07/05/18 [address]. Copy of report sent to Infection Control Printer [id number] 07/05/18 [id number] [address]. 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 Approval by Infectious Disease Specialist required before non-formulary drugs may be ordered and/or dispensed. Meth. resistant Staph. aureus: REACTION Benzylpenicillin NF >=0.5 R Cefoxitin *NF + Clindamycin $$ <=0.25 S Inducable Clindamycin Res[place] - Erythromycin $ >=8 R Gentamicin $ <=0.5 S Levofloxacin $ 0.25 S Linezolid $$$$ 2 S Oxacillin NF >=4 R Tigecycline $$$$ <=0.12 S Rifampin $$ <=0.5 S Tetracycline NF <=1 S Trimethoprim/Sulfametho $ <=10 S Vancomycin $ 1 S (NF) indicates non-formulary drug at [facility]. Approval by Infectious Disease Specialist required before non-formulary drugs may be ordered and/or dispensed. * CLSI guidelines does not recommend testing of cephalosporins. This interpretation is deduced from Beta-lactam/penicillin results. Performed By: #### M100.1400 #### [facility] [address] [place], [place], [id number] PROTHROMBIN TIME W/INR Collected: 06/27/2018 Status: F Source: [place] 6:55 AM [facility] Order Comment: 317 TYPE CODE TESTS RESULT OUT OF RANGE REFERENCE UNITS LAB L300.4150 11.7-14.9 SECONDS High PROTIME 23.3 LAB L300.4200 Normal INR 2.1 Performed By: #### L300.3900 #### [facility] [address] [place], [address] PROTHROMBIN TIME W/INR Collected: 06/20/2018 Status: F Source: [place] 6:15 AM [facility] TYPE CODE TESTS RESULT OUT OF RANGE REFERENCE UNITS LAB L300.4150 11.7-14.9 SECONDS High PROTIME 17.7 LAB L300.4200 Normal INR 1.5 Performed By: #### L300.3900 #### [facility] [address] [place], [address] PROTHROMBIN TIME W/INR Collected: 06/13/2018 Status: F Source: [place] 6:55 AM [facility] Order Comment: 317 TYPE CODE TESTS RESULT OUT OF RANGE REFERENCE UNITS LAB L300.4150 11.7-14.9 SECONDS High PROTIME 18.0 LAB L300.4200 Normal INR 1.5 Performed By: #### L300.3900 #### [facility] [address] [place], [address] PROTHROMBIN TIME W/INR Collected: 06/06/2018 Status: F Source: [place] 8:30 AM [facility] Order Comment: 317 TYPE CODE TESTS RESULT OUT OF RANGE REFERENCE UNITS LAB L300.4150 11.7-14.9 SECONDS Normal PROTIME 14.5 LAB L300.4200 Normal INR 1.1 Performed By: #### L300.3900 #### [facility] [address] [place], [address] BASIC METABOLIC Collected: 06/06/2018 Status: F Source: [place] PROFILE (BMP) 8:30 AM [facility] Order Comment: VERIFIED WITH NURSE THAT IT IS OKAY TO DRAW THESE LABS FOR 06/08/18 WITH PT DRAW ON 06/06/18 TYPE CODE TESTS RESULT OUT OF RANGE REFERENCE UNITS LAB L501.0100 74-106 mg/dL High GLU 129 Result Comment: Fasting Glucose result greater than or equal to 126 mg/dL suggests DIABETES MELLITUS per A.D.A. criteria. Please note revised GLUCOSE reference range effective 2017. LAB L501.1000 7-18 mg/dL Normal BUN 18 LAB L501.1100 0.70-1.30 mg/dL Normal CREAT,SERUM 0.85 Result Comment: The validity of the calculated GFR AND GFRAA in patients over 70 years has not been determined. Clinical correlation is essential. LAB L501.1110 >60 mL/min Normal EST GFR 92 Result Comment: Non- GFR Calc LAB L501.1115 >60 mL/min Normal EST GFR - AA 111 Result Comment: GFR Calc LAB L501.1300 10-20 RATIO High BUN/CRE 21.2 LAB L501.2200 8.5-10.1 mg/dL CA Normal 8.5 LAB L501.5300 136-145 mmol/L NA Normal 137 LAB L501.5600 3.5-5.1 mmol/L K Normal 4.1 LAB L501.5900 98-107 mmol/L CL Normal 102 LAB L501.6100 21.0-32.0 mmol/L Normal CO2 24.0 LAB L501.6200 5-15 Normal GAP 11 Performed By: #### L500.2500 #### [facility] [address] [place], [place], [id number] CBC-COMPLETE BLOOD CNT Collected: 06/06/2018 Status: F Source: [place] NO DIFF 8:30 AM [facility] Order Comment: VERIFIED WITH NURSE THAT IT IS OKAY TO DRAW THESE LABS FOR 06/08/18 WITH PT DRAW ON 06/06/18 TYPE CODE TESTS RESULT OUT OF RANGE REFERENCE UNITS LAB L100.1000 4.4-11.0 K/mm3 Normal WBC 7.0 LAB L100.1200 4.6-6.2 M/mm3 Low RBC 4.59 LAB L100.1300 13.0-16.5 g/dl Normal HGB 13.6 LAB L100.1400 40-54 % Normal HCT 42.4 LAB L100.1500 80-94 fL Normal MCV 92.4 LAB L100.1600 27.0-32.0 pg Normal MCH 29.6 LAB L100.1700 32-36 g/gl Normal MCHC 32.1 LAB L100.1810 11.6-14.6 % High RDW CV 16.5 LAB L100.1820 35.1-43.9 fl High RDW SD 54.5 LAB L100.1900 150-450 K/mm3 Normal PLT 226 LAB L100.2000 6.2-12.0 fl Normal MPV 10.2 Performed By: #### L100.0500 #### [facility] [address] [place], [place], [id number] URINALYSIS, ROUTINE Collected: 05/31/2018 Status: F Source: [place] (DIPSTICK) 10:00 PM [facility] Order Comment: How was Urine Obtained? CLEAN CATCH TYPE CODE TESTS RESULT OUT OF RANGE REFERENCE UNITS LAB L400.3000 Yellow COLOR Normal Yellow LAB L400.3050 Clear Normal CLARITY Sl. Cloudy LAB L400.3200 Normal mg/dl Normal GLUCOSE, UR Normal LAB L400.3300 Negative mg/dL Normal BILIRUBIN URINE Negative LAB L400.3400 Negative mg/dl Normal KETONE UR Negative LAB L400.3465 1.002-1.030 Normal SP.GR. DIPSTX 1.015 LAB L400.3550 5.0 - 8.0 pH UR Normal 6.0 LAB L400.3600 Negative mg/dl High PROT DIPSTX 100 LAB L400.3700 Normal mg/dl Normal UROBILI Normal LAB L400.3750 Negative Normal NITRITE UR Negative LAB L400.3780 Negative /ul High OCCULT BLOOD-UR 250 LAB L400.3800 Negative /ul High LEUK ESTERASE 500 Performed By: #### L400.2010 #### [facility] [address] [place], [place], [address] Observed: 05/31/2018 Status: F Source: [place] CULTURE, URINE 10:00 PM [facility] Urine Culture ORGANISM 1: Proteus mirabilis [place] Count 1000-10,000 Proteus mirabilis: REACTION Amoxacillin/Clavulanic Acid $ 8 S Ampicillin $ >=32 R Ampicillin/Sulbactam $ 8 S Cefazolin $ <=4 S Cefepime $ <=1 S Ceftriaxone $ <=1 S Ciprofloxacin $ >=4 R Ertapenim $$$ <=0.5 S Gentamicin $ <=1 S Levofloxacin $ >=8 R Nitrofurantoin $ 128 R Piperacillin/Tazobactam $$ <=4 S Tobramycin $ <=1 S Trimethoprim/Sulfametho $ >=320 R (NF) indicates non-formulary drug at [facility]. Approval by Infectious Disease Specialist required before non-formulary drugs may be ordered and/or dispensed. Performed By: #### M100.0650 #### [facility] [address] [place], [place], [address] PROTHROMBIN TIME W/INR Collected: 05/30/2018 Status: F Source: [place] 6:55 AM [facility] Order Comment: 317 TYPE CODE TESTS RESULT OUT OF RANGE REFERENCE UNITS LAB L300.4150 11.7-14.9 SECONDS High PROTIME 18.2 LAB L300.4200 Normal INR 1.5 Performed By: #### L300.3900 #### [facility] [address] [place], [address] PROTHROMBIN TIME W/INR Collected: 05/23/2018 Status: F Source: [place] 8:00 AM [facility] Order Comment: 317 TYPE CODE TESTS RESULT OUT OF RANGE REFERENCE UNITS LAB L300.4150 11.7-14.9 SECONDS High PROTIME 17.2 LAB L300.4200 Normal INR 1.4 Performed By: #### L300.3900 #### [facility] [address] [place], [address] PROTHROMBIN TIME W/INR Collected: 05/19/2018 Status: F Source: [place] 6:05 AM [facility] Order Comment: 317 TYPE CODE TESTS RESULT OUT OF RANGE REFERENCE UNITS LAB L300.4150 11.7-14.9 SECONDS High PROTIME 31.9 LAB L300.4200 Normal INR 3.1 Performed By: #### L300.3900 #### [facility] [address] [place], [address] CBC W/DIFF, AUTOMATED Collected: 05/16/2018 Status: F Source: [place] 8:35 AM [facility] Order Comment: ROOM 317\ TYPE CODE TESTS RESULT OUT OF RANGE REFERENCE UNITS LAB L100.1000 4.4-11.0 K/mm3 Normal WBC 9.4 LAB L100.1200 4.6-6.2 M/mm3 Low RBC 4.57 LAB L100.1300 13.0-16.5 g/dl Normal HGB 13.2 LAB L100.1400 40-54 % Normal HCT 42.0 LAB L100.1500 80-94 fL Normal MCV 91.9 LAB L100.1600 27.0-32.0 pg Normal MCH 28.9 LAB L100.1700 32-36 g/gl Low MCHC 31.4 LAB L100.1810 11.6-14.6 % High RDW CV 17.1 LAB L100.1820 35.1-43.9 fl High RDW SD 57.9 LAB L100.1900 150-450 K/mm3 Low PLT 128 LAB L100.2000 6.2-12.0 fl Normal MPV 10.8 LAB L100.2100 47-70 % High NEUT% 72.3 LAB L100.2200 19-41 % Low LY% 12.7 LAB L100.2300 0-10 % High MONO% 14.4 LAB L100.2400 0-5 % Normal EO% 0.5 LAB L100.2500 0-1 % Normal BASO% 0.1 LAB L100.2550 0.0-0.9 % Normal IM GRAN % 0.000 Result Comment: IG% - Immature Granulocytes (promyelocytes, myelocytes and metamyelocytes) > 1% indicates that a LEFT SHIFT is Present. LAB L100.2620 2.0-7.7 X10 3/uL Normal Absolute Neut 6.8 LAB L100.2720 0.83-4.51 X10 3/ul Normal Absolute Lymph 1.19 Performed By: #### L100.0100 #### [facility] [address] [place], [place], [id number] PROTHROMBIN TIME W/INR Collected: 05/16/2018 Status: F Source: [place] 8:35 AM [facility] Order Comment: ROOM 317\ TYPE CODE TESTS RESULT OUT OF RANGE REFERENCE UNITS LAB L300.4150 11.7-14.9 SECONDS High PROTIME 34.5 LAB L300.4200 Normal INR 3.4 Performed By: #### L300.3900 #### [facility] [address] [facility] [place], [place], [id number] BASIC METABOLIC Collected: 05/16/2018 Status: F Source: [place] PROFILE (BMP) 8:35 AM [facility] Order Comment: ROOM 317\ TYPE CODE TESTS RESULT OUT OF RANGE REFERENCE UNITS LAB L501.0100 74-106 mg/dL Normal GLU 96 Result Comment: Please note revised GLUCOSE reference range effective 2017. LAB L501.1000 7-18 mg/dL High BUN 25 LAB L501.1100 0.70-1.30 mg/dL Normal CREAT,SERUM 0.81 Result Comment: The validity of the calculated GFR AND GFRAA in patients over 70 years has not been determined. Clinical correlation is essential. LAB L501.1110 >60 mL/min Normal EST GFR 97 Result Comment: Non- GFR Calc LAB L501.1115 >60 mL/min Normal EST GFR - AA 117 Result Comment: GFR Calc LAB L501.1300 10-20 RATIO High BUN/CRE 30.8 LAB L501.2200 8.5-10.1 mg/dL CA Normal 8.8 LAB L501.5300 136-145 mmol/L High NA 151 LAB L501.5600 3.5-5.1 mmol/L K Normal 3.6 LAB L501.5900 98-107 mmol/L High CL 114 LAB L501.6100 21.0-32.0 mmol/L Normal CO2 32.0 LAB L501.6200 5-15 Normal GAP 5 Performed By: #### L500.2500, L501.1800, L506.0500 #### [facility] [address] [facility] [place], [address] ALBUMIN, SERUM Collected: 05/16/2018 Status: F Source: [place] 8:35 AM [facility] Order Comment: ROOM 317\ TYPE CODE TESTS RESULT OUT OF RANGE REFERENCE UNITS LAB L501.1800 3.2-5.0 g/dL Low ALB 2.4 Performed By: #### L500.2500, L501.1800, L506.0500 #### [facility] [address] [place], [address] PREALBUMIN Collected: 05/16/2018 Status: F Source: [place] 8:35 AM [facility] Order Comment: ROOM 317\ TYPE CODE TESTS RESULT OUT OF REFERENCE UNITS RANGE LAB L506.0500 20.0-40.0 mg/dL Low PREALBUMIN 8.7 Performed By: #### L500.2500, L501.1800, L506.0500 #### [facility] [address] [place], [address] CBC W/DIFF, AUTOMATED Collected: 05/13/2018 Status: F Source: [place] 6:26 AM [facility] TYPE CODE TESTS RESULT OUT OF RANGE REFERENCE UNITS LAB L100.1000 4.4-11.0 K/mm3 High WBC 19.9 LAB L100.1200 4.6-6.2 M/mm3 Normal RBC 4.67 LAB L100.1300 13.0-16.5 g/dl Normal HGB 13.6 LAB L100.1400 40-54 % Normal HCT 42.6 LAB L100.1500 80-94 fL Normal MCV 91.2 LAB L100.1600 27.0-32.0 pg Normal MCH 29.1 LAB L100.1700 32-36 g/gl Low MCHC 31.9 LAB L100.1810 11.6-14.6 % High RDW CV 17.1 LAB L100.1820 35.1-43.9 fl High RDW SD 56.9 LAB L100.1900 150-450 K/mm3 Low PLT 134 LAB L100.2000 6.2-12.0 fl Normal MPV 10.8 LAB L100.2100 47-70 % High NEUT% 88.7 LAB L100.2200 19-41 % Low LY% 4.5 LAB L100.2300 0-10 % Normal MONO% 6.3 LAB L100.2400 0-5 % Normal EO% 0.0 LAB L100.2500 0-1 % Normal BASO% 0.1 LAB L100.2550 0.0-0.9 % Normal IM GRAN % 0.400 Result Comment: IG% - Immature Granulocytes (promyelocytes, myelocytes and metamyelocytes) > 1% indicates that a LEFT SHIFT is Present. LAB L100.2620 2.0-7.7 X10 3/uL High Absolute Neut 17.6 LAB L100.2720 0.83-4.51 X10 3/ul Normal Absolute Lymph 0.90 Performed By: #### L100.0100 #### [facility] [address] [place], [place], [address] BASIC METABOLIC Collected: 05/13/2018 Status: F Source: [place] PROFILE (BMP) 6:26 AM [facility] TYPE CODE TESTS RESULT OUT OF RANGE REFERENCE UNITS LAB L501.0100 74-106 mg/dL High GLU 146 Result Comment: Fasting Glucose result greater than or equal to 126 mg/dL suggests DIABETES MELLITUS per A.D.A. criteria. Please note revised GLUCOSE reference range effective 2017. LAB L501.1000 7-18 mg/dL High BUN 32 LAB L501.1100 0.70-1.30 mg/dL High CREAT,SERUM 1.60 Result Comment: The validity of the calculated GFR AND GFRAA in patients over 70 years has not been determined. Clinical correlation is essential. LAB L501.1110 >60 mL/min Low EST GFR 44 Result Comment: Non- GFR Calc LAB L501.1115 >60 mL/min Low EST GFR - AA 54 Result Comment: GFR Calc LAB L501.1300 10-20 RATIO Normal BUN/CRE 20.0 LAB L501.2200 8.5-10.1 mg/dL CA Normal 9.0 LAB L501.5300 136-145 mmol/L NA Normal 143 LAB L501.5600 3.5-5.1 mmol/L K Normal 3.7 LAB L501.5900 98-107 mmol/L High CL 112 LAB L501.6100 21.0-32.0 mmol/L Normal CO2 22.0 LAB L501.6200 5-15 Normal GAP 9 Performed By: #### L500.2500 #### [facility] [address] [place], [address] URINALYSIS, ROUTINE Collected: 05/13/2018 Status: F Source: MICHELLE (DIPSTICK) 12:00 AM [facility] [place] REPOSITORY Order Comment: COLOR OF URINE MAY AFFECT DIPSTICK RESULTS. How was Urine Obtained? CLEAN CATCH TYPE CODE TESTS RESULT OUT OF RANGE REFERENCE UNITS LAB L400.3000 Yellow COLOR Normal Red LAB L400.3050 Clear Normal CLARITY Turbid LAB L400.3200 Normal mg/dl Normal GLUCOSE, UR Normal LAB L400.3300 Negative mg/dL Normal BILIRUBIN URINE Negative LAB L400.3400 Negative mg/dl High 5 KETONE UR LAB L400.3465 1.002-1.030 Normal SP.GR. DIPSTX 1.010 LAB L400.3550 5.0 - 8.0 pH UR Normal 6.0 LAB L400.3600 Negative mg/dl High PROT DIPSTX 500 LAB L400.3700 Normal mg/dl Normal UROBILI Normal LAB L400.3750 Negative High NITRITE UR Positive LAB L400.3780 Negative /ul High OCCULT BLOOD-UR 250 LAB L400.3800 Negative /ul High LEUK ESTERASE 500 Performed By: #### L400.2011 #### [facility] [address] [place], [address] Observed: 05/13/2018 Status: F Source: [place] CULTURE, URINE 12:00 AM [facility] Urine Culture ORGANISM 1: Proteus mirabilis [place] Count >100,000 ORGANISM 2: Enterobacter cloacae complex [place] Count >100,000 Proteus mirabilis: REACTION Amoxacillin/Clavulanic Acid $ <=2 S Ampicillin $ >=32 R Ampicillin/Sulbactam $ 8 S Cefazolin $ <=4 S Cefepime $ <=1 S Ceftriaxone $ <=1 S Ciprofloxacin $ >=4 R Ertapenim $$$ <=0.5 S Gentamicin $ <=1 S Levofloxacin $ >=8 R Nitrofurantoin $ 128 R Piperacillin/Tazobactam $$ <=4 S Tobramycin $ <=1 S Trimethoprim/Sulfametho $ >=320 R (NF) indicates non-formulary drug at [facility]. Approval by Infectious Disease Specialist required before non-formulary drugs may be ordered and/or dispensed. Enterobacter cloacae complex: REACTION Amoxacillin/Clavulanic Acid $ >=32 R Cefazolin $ >=64 R Cefepime $ <=1 S Ceftriaxone $ 8 S Ciprofloxacin $ <=0.25 S Ertapenim $$$ <=0.5 S Gentamicin $ >=16 R Imipenem *NF <=0.25 S Levofloxacin $ 1 S Nitrofurantoin $ 64 I Piperacillin/Tazobactam $$ 8 S Tobramycin $ >=16 R Trimethoprim/Sulfametho $ >=320 R (NF) indicates non-formulary drug at [facility]. Approval by Infectious Disease Specialist required before non-formulary drugs may be ordered and/or dispensed. Performed By: #### M100.0650 #### [facility] [address] [place], [address] PROTHROMBIN TIME W/INR Collected: 05/12/2018 Status: F Source: [place] 5:55 AM [facility] Order Comment: 317 TYPE CODE TESTS RESULT OUT OF RANGE REFERENCE UNITS LAB L300.4150 11.7-14.9 SECONDS High PROTIME 17.7 LAB L300.4200 Normal INR 1.5 Performed By: #### L300.3900 #### [facility] [address] [place] [address] [place], [address] CBC W/DIFF, AUTOMATED Collected: 05/10/2018 Status: F Source: [place] 6:55 AM [facility] Order Comment: 317 TYPE CODE TESTS RESULT OUT OF RANGE REFERENCE UNITS LAB L100.1000 4.4-11.0 K/mm3 Normal WBC 7.0 LAB L100.1200 4.6-6.2 M/mm3 Low RBC 4.55 LAB L100.1300 13.0-16.5 g/dl Normal HGB 13.2 LAB L100.1400 40-54 % Normal HCT 41.4 LAB L100.1500 80-94 fL Normal MCV 91.0 LAB L100.1600 27.0-32.0 pg Normal MCH 29.0 LAB L100.1700 32-36 g/gl Low MCHC 31.9 LAB L100.1810 11.6-14.6 % High RDW CV 16.5 LAB L100.1820 35.1-43.9 fl High RDW SD 54.1 LAB L100.1900 150-450 K/mm3 Normal PLT 167 LAB L100.2000 6.2-12.0 fl Normal MPV 10.2 LAB L100.2100 47-70 % Normal NEUT% 55.8 LAB L100.2200 19-41 % Normal LY% 28.0 LAB L100.2300 0-10 % High MONO% 11.2 LAB L100.2400 0-5 % Normal EO% 4.6 LAB L100.2500 0-1 % Normal BASO% 0.3 LAB L100.2550 0.0-0.9 % Normal IM GRAN % 0.100 Result Comment: IG% - Immature Granulocytes (promyelocytes, myelocytes and metamyelocytes) > 1% indicates that a LEFT SHIFT is Present. LAB L100.2620 2.0-7.7 X10 3/uL Normal Absolute Neut 3.9 LAB L100.2720 0.83-4.51 X10 3/ul Normal Absolute Lymph 1.95 Performed By: #### L100.0100 #### [facility] [address] [place], [address] PROTHROMBIN TIME W/INR Collected: 05/10/2018 Status: F Source: [place] 6:55 AM [facility] Order Comment: 317 TYPE CODE TESTS RESULT OUT OF RANGE REFERENCE UNITS LAB L300.4150 11.7-14.9 SECONDS High PROTIME 16.7 LAB L300.4200 Normal INR 1.4 Performed By: #### L300.3900 #### [facility] [address] [facility] [place], [address] BASIC METABOLIC Collected: 05/10/2018 Status: F Source: [place] PRO[place] ([place]) 6:55 AM [facility] Order Comment: 317 TYPE CODE TESTS RESULT OUT OF RANGE REFERENCE UNITS LAB L501.0100 74-106 mg/dL Normal GLU 84 Result Comment: Please note revised GLUCOSE reference range effective 2017. LAB L501.1000 7-18 mg/dL Normal BUN 15 LAB L501.1100 0.70-1.30 mg/dL Normal CREAT,SERUM 0.77 Result Comment: The validity of the calculated GFR AND GFRAA in patients over 70 years has not been determined. Clinical correlation is essential. LAB L501.1110 >60 mL/min Normal EST GFR 103 Result Comment: Non- GFR Calc LAB L501.1115 >60 mL/min Normal EST GFR - AA 125 Result Comment: GFR Calc LAB L501.1300 10-20 RATIO Normal BUN/CRE 19.6 LAB L501.2200 8.5-10.1 mg/dL CA Normal 8.7 LAB L501.5300 136-145 mmol/L NA Normal 140 LAB L501.5600 3.5-5.1 mmol/L K Normal 4.5 LAB L501.5900 98-107 mmol/L CL Normal 103 LAB L501.6100 21.0-32.0 mmol/L Normal CO2 30.0 LAB L501.6200 5-15 Normal GAP 7 Performed By: #### L500.2500, L500.4100 #### [facility] [address] [place], [address] LIPID PROFILE Collected: 05/10/2018 Status: F Source: [place] 6:55 AM [facility] Order Comment: 317 TYPE CODE TESTS RESULT OUT OF RANGE REFERENCE UNITS LAB L501.4900 200 mg/dL Normal CHOL 104 Result Comment: <200 mg/dL Desirable 200-240 mg/dL Borderline >240 mg/dL High Risk LAB L501.5000 mg/dL Normal TRIG 50 Result Comment: The drugs N-Acetylcysteine and Metamizole may falsely depress this assay. Serum Triglycerides Reference Interval Normal <150 mg/dL Borderline high 150 - 199 mg/dL High 200 - 499 mg/dL Very High > or = 500 mg/dL LAB L501.6400 mg/dL Normal HDL 46 Result Comment: The drugs N-Acetylcysteine and Metamizole may falsely depress this assay. Reference Range HDL <40 mg/dL Low HDL Cholesterol HDL >or= 60 mg/dL High HDL Cholesterol LAB L501.6500 0-130 mg/dL Normal LDL 48 LAB L501.6600 5-40 mg/dL Normal VLDL 10 Performed By: #### L500.2500, L500.4100 #### [facility] [address] [place], [place], [address] VALPROIC ACID Collected: 05/10/2018 Status: F Source: [place] ([place]) LEVEL 6:55 AM [facility] Order Comment: 317 TYPE CODE TESTS RESULT OUT OF REFERENCE UNITS RANGE LAB L501.8100 50-100 ug/mL Low VALPROIC ACID 43 Performed By: #### L501.8100 #### [facility] [address] [place], [place], [address] PACEMAKER CHECK Observed: 03/20/2018 Status: F Source: [place] 10:12 AM [facility] [address] [place] [address] Pacemaker Check Date of Service: 03/07/18 1423 MR#: [id number] Acct: [id number] Name: TAY ESCOBAR Rep #: [id number] : 1935 From: Hakan Hoffmann MD Age/Sex: 82/M Location: [facility] [place] Status: Signed Comments Summary Comments: Dual Chamber Pacemaker Evaluation: Interrogation shows 105 MS episodes, 63% total time or 122.7 days, and 1 NSVT episode since 08/24/17. Stored e-grams show atrial fib with appropriate MS. Presenting rhythm shows AAI pacing @ 60 ppm. SHEET ROCK APPLIER=52%, AP=17%. Battery longevity approx 4.5 yrs. Lead impedances, sensing and pace/sense thresholds remain stable. No parameter changes made. Counters cleared. Next f/u appt scheduled for in 6 mos. Pt resides @ [facility]. Device Device Date Interviewed: 03/07/18 Follow-up Location: in office Interview Reason: routine follow up Dye Maker: onkea Name: Altrua 60 EL Model: S606 Serial #: [id number] Implant Date: 04/03/10 Year(s): 7 Implant Physician: Dr. Pelon Osborn/Shikha Patient Characteristics Atrial Indication: Paroxysmal atrial fibrillation, sick sinus syndrome Patient Substrate: Ischemic cardiomyopathy Ejection fraction %: 45 to 49 (09/09/2017) By: Echo Underlying rhythm: Atrial fibrillation Pacemaker Dependent: No Device Characteristics Device: Dual Chamber Type: Pacemaker Remote Follow-Up: No Device Physical Exam Yes Incision well healed Leads Lead #1 Dye Maker Lead 1: Guidant Model Lead 1: [id number] Serial# Lead 1: [id number] Date Implanted Lead 1: 04/03/10 Position Lead 1: RA Lead #2 Dye Maker Lead 2: Guidant Model Lead 2: [id number] Serial# Lead 2: [id number] Date Implanted Lead 2: 04/03/10 Position Lead 2: RV Diagnostics Pacing % RA Pacin % RV Pacin Mode Switching Total # Episodes: 105 % Mode switched: 63 Arrhythmias Non-Sust Episodes: 3 Measurements Battery Magnet Rate (bmp): 100 Predicted Remaining Longevity (months or years): 4.5 years RA Measurements Signal Amplitude (mV): 3.0 Impedance (Ohms): 540 Threshold Voltage: 0.4 @ PW(ms): 0.5 RV Measurements Signal Amplitude (mV): 10.6 Impedance (Ohms): 590 Threshold Voltage: 1.1 @ PW(ms): 0.4 Sukhwinder Settings Bradycardia Mode and Timing Settings Pacemaker Mode: DDD Base Rate: 60 bpm Max Track Rate: 120 bpm Maximum AV Delay: 300 msec Bradycardia Output and Sensitivity Settings Right Atrium: 0.5 msec, 2.0 volts, 0.5 mV sensitivity. Right Ventricle: 0.4 msec, Automatic1.4 volts. Billing Codes PM Device Codes: PM Dev Prog Eval, Dual Assessment AND Plan Problems 1. Presence of cardiac pacemaker Z95.0 [employer] 2. Sick sinus syndrome I49.5 3. Chronic atrial fibrillation I48.2 4. Paroxysmal atrial fibrillation I48.0 5. Cardiomyopathy in disease classified elsewhere I43 03/20/18 1012 <Electronically signed by Hakan Hoffmann MD> Date Hakan Hoffmann MD 03/19/18 1155<Electronically signed by Milena Coles > Cosign Signature: Date (if applicable) Milena Coles CC: CARDIOLOGY VISIT Observed: 03/07/2018 Status: F Source: [place] 2:07 PM [facility] [address] [place] [address]. [address] [place] [address] OFFICE VISIT Date of Service: 03/07/18 MR#: [id number] Acct: [id number] Name: TAY ESCOBAR Rep #: [id number] : 1935 Provider: Hakan Hoffmann MD Age/Sex: 82/M Location[place] [facility] [place] Status: Signed HPI HPI Chief Complaint: Routine f/u Details: Mr. Escobar is a very pleasant 82-year-old gentleman, the of one of my patients, with a history of hypertension,hypercholesterolemia, coronary artery disease status post single-vessel bypass surgery on 05/06/83. That time he received a saphenous vein graft to the mid RCA. He had a repeat heart catheterization 2002, but I do not have those results. In addition he has a history of sick sinus syndrome and underwent chamber pacemaker at [facility] on 04/03/10. 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 He is currently on warfarin and doing well. From a cardiac standpoint he denies any exertional chest pain, angina, shortness of breath or dyspnea on exertion. He does admit to decreased energy level however. He denies any palpitations although he does have a history of paroxysmal atrial fibrillation and had a stress test on 06/27/13 and outside facility and was reportedly read as okay. He had no repeat catheterization at that time. In August 2017 the patient was admitted with urinary tract infection requiring suprapubic catheter. In October 2017 the patient was admitted to [facility] with a hip fracture, requiring surgical correction. Unfortunately he is wheelchair-bound, and does not walk at the group home. Patient currently resides at [facility], and apparently is deteriorating according to his . He is in a wheelchair today, with a urinary bag. He is fairly demented, and believes he comes home on the weekend to sit in his truck. He does not walk at the group home. In our office today's blood pressure is 118/52, pulse is 60 and regular. Patient is a faint carotid bruit over his right side, otherwise 2+ upstroke bilaterally. Cardiac exam is regular rate and rhythm, normal S1/S2, no S3-S4 or murmurs. He has no edema. Lipids as of 04/15/17 demonstrated an HDL of 45. LDL was not quantitated. Repeat lipids dated 11/19/17 showed HDL 36 and an LDL of 30. EKG previously shows atrial fibrillation with paced ventricular response and a left bundle pattern. Pacemaker interrogation today preliminarily shows normal function. Patient has background atrial fibrillation. Intake Vital Signs03/07/18 Height 6 ft 03/07/18 Weight: 161 lb 03/07/18 Body Mass Index (BMI) 21.8 03/07/18 Blood Pressure 118/52 03/07/18 Respiratory Rate 16 03/07/18 Pulse Rate 60 Intake Visit Reasons: DJN and pacer Allergies No Known Allergies Allergy (Verified 03/07/18 13:21) Medications Aspirin [Aspirin, Baby] 81 mg PO DAILY@0800 09/15/17 [History Confirmed 03/07/18] Docusate Sodium [Stool Softener] 100 mg PO DAILY 09/15/17 [History Confirmed 03/07/18] Galantamine HBr [Razadyne] 8 mg PO BID 09/15/17 [History Confirmed 03/07/18] Memantine HCl [Namenda Xr] 28 mg PO DINNER 09/15/17 [History Confirmed 03/07/18] Warfarin [Coumadin] 3 mg PO DAILY 09/15/17 [History Confirmed 03/07/18] Acetaminophen 650 mg RC Q4H PRN PRN 11/17/17 [History Confirmed 03/07/18] Acetaminophen [Tylenol] 2 tab PO Q4H PRN PRN 11/17/17 [History Confirmed 03/07/18] Atorvastatin Calcium 40 mg PO QHS 11/17/17 [History Confirmed 03/07/18] Bisacodyl [Dulcolax] 10 mg RECTAL DAILY PRN PRN 11/17/17 [History Confirmed 03/07/18] Mag Hydrox/Al Hydrox/Simeth [Antacid Suspension] 30 ml PO Q4H PRN PRN 11/17/17 [History Confirmed 03/07/18] Venlafaxine HCl [Effexor Xr] 75 mg PO DAILY 11/17/17 [History Confirmed 03/07/18] PFSH Medical History Sick sinus syndrome (Chronic) Cardiomyopathy in disease classified elsewhere (Chronic) Nonrheumatic mitral (valve) insufficiency (Chronic) Non-rheumatic tricuspid valve insufficiency (Chronic) Hyperlipidemia (Chronic) Chronic atrial fibrillation (Chronic) Presence of cardiac pacemaker (Chronic 03/31/13) Atherosclerosis of coronary artery of [place] heart without angina pectoris (Chronic) GI bleed (Chronic) Hip fracture, intertrochanteric (Chronic) Right carotid bruit (Chronic) Surgical History H/O coronary artery bypass surgery (Chronic 05/06/83) History of left heart catheterization (Chronic 2002) History of open heart surgery (Resolved) Family History Brother Heart disease Alzheimer disease Father Alzheimer disease Social History Smoking Status: Never smoker ROS Const Const: Positive for weakness, other (non ambulatory) and fatigue; negative for difficulty sleeping, frequent falls, headache(s) or excessive sweating Eyes Eyes: Negative for loss of peripheral vision, transient loss of vision, blurry vision or double vision ENT ENT: Negative for Nosebleed/epistaxis, dizziness, headache(s) or balance problems Cardio Chest Pain: No Edema: None Muscle aches with walking: None Resp Respiratory: Positive for crackles (left base); negative for SOB with activity, SOB at rest, SOB orthopnea\SOB lying down or paroxysmal nocturnal dyspnea GI GI: Negative nausea or heartburn : Negative for hematuria Musc Musc: Positive for muscle weakness; negative for muscle aches/ myalgia, joint pain or balance problems Skin Skin: Negative non-healing lesions, unusual bruising or rash Neuro Neuro: Positive for weakness; negative for blurry vision, dizziness, lightheadedness, orthostatic symptoms, double vision, frequent falls or headache(s) Alex Hematologic/Lymphatic: Negative for easy bruising Endo Endo: Positive for fatigue; negative for excessive sweating or increased thirst/drinking Psych Psych: Negative for anxiety or depression Allergy Allergy/Immunology: Negative for hives, Negative for rash Cardiology Exam Const Appearance: cooperative, healthy appearing and no acute distress Nutritional Appearance: well nourished Orientation: alert, oriented x3 and oriented to person Head Head: normal to inspection, atraumatic and normocephalic Nose: external nose normal Face and Sinus: face symmetric Mouth: oral mucosae normal Eyes General: appearance normal, both eyes and all related structures Eyelids: eyelids normal Conjunctivae: conjunctivae normal Pupils: PERRL and normal by confrontation EOM: EOM intact bilaterally Neck Neck: normal visual inspection and full ROM Carotids: normal carotid upstroke Chest Chest inspection: normal inspection of the chest Auscultation: Bilateral: Clear to Auscultation Cardio Palpation: normal PMI Rate: regular rate Rhythm: regular rhythm Heart sounds: S1 normal and S2 normal GI GI: normal to inspection, no hepatosplenomegaly and bowel sounds present Neuro General: alert, oriented x3, awake, CN's II-XI intact bilaterally and moves all extremities Skin Skin: no rashes or lesions noted Extremities Pulses: Normal: Right Femoral Pulse, Left Femoral Pulse, Right Dorsalis Pedis Pulse, Left Dorsalis Pedis Pulse, Right Posterior Tibial Pulse, Left Posterior Tibial Pulse, Right Radial Pulse, Left Radial Pulse Lower Extremity Edema: None: Bilateral Psych Psychological: normal affect Assessment AND Plan 1. Atherosclerosis of coronary artery of [place] heart without angina pectoris I25.10 Plan 1. Coronary artery disease: No exertional anginal symptoms at this time. Patient is essentially wheelchair bound, and and is moderately demented at this time. Nonetheless he is in no distress, and appears to be euvolemic. Recommend continuing baby aspirin. No indication for stress testing at this time. 2. Hyperlipidemia E78.5 Plan 2. Hyperlipidemia: His lipids as of 11/19/17 showed LDL of 30 and HDL 36. Continue Lipitor therapy. 3. Paroxysmal atrial fibrillation I48.0 Plan 3. Paroxysmal atrial fibrillation: Patient appears to be regular rhythm at this time although this may be pacer dependent. Continue warfarin therapy. He does not ambulate, lives 24/ in a group home, is under supervision, and therefore he is at a reduced fall risk. 4. Return office in 6 months. This note was generated using a voice recognition system and there may be incorrect words, spelling or punctuation that were not noted when reviewing the office note prior to saving. Plan Detail Follow Up +6m (Shun) Coding Level of Care Code Off vis,est,level 3 Diagnoses Atherosclerosis of coronary artery of [place] heart without angina pectoris I25.10 Hyperlipidemia E78.5 Paroxysmal atrial fibrillation I48.0 Coding Level of Care Code Off vis,est,level 3 Diagnoses Atherosclerosis of coronary artery of [place] heart without angina pectoris I25.10 Hyperlipidemia E78.5 Paroxysmal atrial fibrillation I48.0 03/07/18 1407 <Electronically signed by Hakan Hoffmann MD> Date Hakan Hoffmann MD Cosigner Signature: Date (if applicable) CC: Juan Canada MD ORTHOPEDIC VISIT Observed: 01/12/2018 Status: F Source: [place] RE[place] 10:11 AM [facility] [address] [place] [address] OFFICE VISIT Date of Service: 12/31/17 MR#: [id number] Acct: [id number] Name: TAY ESCOBAR Rep #: [id number] : 1935 Provider: Odilon Slade DO Age/Sex: 82/M Location: [facility] [place] Status: Signed Intake Intake Visit Reasons: Lt hip Allergies No Known Allergies Allergy (Verified 12/31/17 15:51) Medications Aspirin [Aspirin, Baby] 81 mg PO DAILY@0800 09/15/17 [History Confirmed 12/31/17] Colestipol Tablet [Colestid Tablet] 2 gm PO TIDCM 09/15/17 [History Confirmed 12/31/17] Divalproex Sodium [Depakote] 250 mg PO BIDCM 09/15/17 [History Confirmed 12/31/17] Docusate Sodium [Stool Softener] 100 mg PO DAILY 09/15/17 [History Confirmed 12/31/17] Galantamine HBr [Razadyne] 8 mg PO BID 09/15/17 [History Confirmed 12/31/17] Memantine HCl [Namenda Xr] 28 mg PO DINNER 09/15/17 [History Confirmed 12/31/17] Warfarin [Coumadin] 3 mg PO DAILY 09/15/17 [History Confirmed 12/31/17] Acetaminophen 650 mg RC Q4H PRN PRN 11/17/17 [History Confirmed 12/31/17] Acetaminophen [Tylenol] 2 tab PO Q4H PRN PRN 11/17/17 [History Confirmed 12/31/17] Atorvastatin Calcium 40 mg PO QHS 11/17/17 [History Confirmed 12/31/17] Bisacodyl [Dulcolax] 10 mg RECTAL DAILY PRN PRN 11/17/17 [History Confirmed 12/31/17] Guaifenesin [Robitussin] 10 ml PO Q4H PRN PRN 11/17/17 [History Confirmed 12/31/17] Mag Hydrox/Al Hydrox/Simeth [Antacid Suspension] 30 ml PO Q4H PRN PRN 11/17/17 [History Confirmed 12/31/17] Magnesium Hydroxide [Milk Of Magnesia] 30 ml PO DAILY PRN PRN 11/17/17 [History Confirmed 12/31/17] Na Phos,M-B/Na Phos,Di-Ba [Fleet Enema] 1 bottle RECTAL DAILY PRN PRN 11/17/17 [History Confirmed 12/31/17] Venlafaxine HCl [Effexor Xr] 75 mg PO DAILY 11/17/17 [History Confirmed 12/31/17] PFSH Surgical History History of open heart surgery (Resolved) Family History Brother Heart disease Alzheimer disease Father Alzheimer disease Social History Smoking Status: Never smoker HPI Lt hip: Details: TAY ESCOBAR is a 82 year old M here today for left hip fracture/repair DOS 11/18/17. states she is unsure what his symptoms are. Patient currently lives at [facility]. According to PT states he does seem to be in pain during PT, however, he never complains. He does have pain medication in his medication list. ROS Const Reports system reviewed and no additional complaints, except as docu Eyes Reports system reviewed and no additional complaints, except as docu ENT Reports system reviewed and no additional complaints, except as docu Card Reports system reviewed and no additional complaints, except as docu Resp Reports system reviewed and no additional complaints, except as docu GI Reports system reviewed and no additional complaints, except as docu Reports system reviewed and no additional complaints, except as docu Musc Reports joint pain Skin/Breast Reports system reviewed and no additional complaints, except as docu Neuro Yes system reviewed and no additional complaints, except as docu Psych Reports system reviewed and no additional complaints, except as docu Endo Reports system reviewed and no additional complaints, except as docu Alex/Lymph Reports system reviewed and no additional complaints, except as docu Aller/Immun Reports system reviewed and no additional complaints, except as docu Ortho Exam Left Hip Skin/Wound: Yes CDI, Yes healed Contralateral Normal: Yes Hip: Absent eccymosis, soft tissue swelling, erythema or TTP Greater Troch Homans Sign: No HIP: Distally neurovascular intact. Negative Homans no calf pain. Incision clean dry and intact. Gross motor function 5 out of 5. Patient is very weak with an attempt to stand. Patient has significant dementia. X-rays: Evaluated myself the family-well approximated intertrochanteric femur fracture status post gamma nail. Healing well. Assessment AND Plan Problems 1. Closed displaced intertrochanteric fracture of left femur with routine healing, subsequent encounter S72.873D Plan Assessment: After orthopedic status post left hip gamma nail for intertrochanteric femur fracture routine healing doing well. Plan: She will follow-up with me in 6-12 weeks. Weightbearing as tolerated. Any issues please contact. X-rays at next. Orders Orders: Coding Level of Care Code Global Post Op Diagnoses Closed displaced intertrochanteric fracture of left femur with routine healing, subsequent encounter S72.511H Encounter type: subsequent encounter Fracture type: closed Fracture alignment: displaced Laterality: left Fracture healing: with routine healing 01/12/18 1011 <Electronically signed by Odilon Slade DO> Date Odilon Slade DO Cosigner Signature: Date (if applicable) CC: HIP 2-3 VIEWS WITH Observed: 12/31/2017 Status: F Source: [place] PELVIS 1:20 PM [facility] Imaging Services [address] [place] [id number] Hip 2-3 Views with Pelvis MR#: [id number] Acct: [id number] Name: TAY ESCOBAR Rep #: [id number] : 1935 M 82 From: Hellen Sullivan MD PCP: Dread SHELBY,Juan Chi Status: REG CLI Study: Hip 2-3 Views with Pelvis Date of Exam: 12/31/17 Exam# [id number] Ordering Dr: Odilon Slade DO STUDY: X-RAY - PELVIS AND LEFT HIP REASON FOR EXAM: Male, 82 years old. Post operative assessment TECHNIQUE: Three views of the pelvis and hip were obtained. COMPARISON: December 02, 2017 FINDINGS: The bowel gas pattern is unremarkable. Small sutures are again seen in the lower pelvis. There are mild degenerative changes in the lower lumbar spine. The visualized iliac wings, sacroiliac joints and sacrum are unremarkable. No abnormalities are seen in the visualized superior and inferior pubic rami. Normal appearing pubic symphysis. The visualized ischial tuberosities are unremarkable. Hardware is again seen in the proximal left femur. The hardware is intact. Subacute fractures are again seen in the intertrochanteric region of the left femur and in the lesser trochanter. There is callus formation around the lesser trochanter. The acetabulum shows no significant abnormalities. The hip joint is normal in appearance. RAD/Hip 2-3 Views with Pelvis IMPRESSION: Surgical changes are again seen in the proximal left femur. The hardware appears intact. Subacute fractures are again seen in the intertrochanteric region of the left femur and in the lesser trochanter with callus formation around the lesser trochanter. Electronically Signed: Hellen Sullivan MD at 0:54 EST Tel Direct: [phone], Service support , CC: Odilon Slade DO; Juan Canada MD Counterintelligence Agent: Signed ORTHOPEDIC VISIT Observed: 12/06/2017 Status: F Source: MICHELLE REPORT 7:50 AM [facility] [facility] Orthopaedics AND Sports Medicine [address] [place] [address] OFFICE VISIT Date of Service: 12/02/17 MR#: [id number] Acct: [id number] Name: TAY ESCOBAR Arcenio Rep #: [id number] : 1935 Provider: Odilon Slade DO Age/Sex: 82/M Location: [facility] Status: Signed Intake Intake Visit Reasons: LT HIP Is patient in pain?: No Allergies No Known Allergies Allergy (Verified 12/02/17 10:30) Medications Aspirin [Aspirin, Baby] 81 mg PO DAILY@0800 09/15/17 [History Confirmed 12/02/17] Colestipol Tablet [Colestid Tablet] 2 gm PO TIDCM 09/15/17 [History Confirmed 12/02/17] Divalproex Sodium [Depakote] 250 mg PO BIDCM 09/15/17 [History Confirmed 12/02/17] Docusate Sodium [Stool Softener] 100 mg PO DAILY 09/15/17 [History Confirmed 12/02/17] Galantamine HBr [Razadyne] 8 mg PO BID 09/15/17 [History Confirmed 12/02/17] Memantine HCl [Namenda Xr] 28 mg PO DINNER 09/15/17 [History Confirmed 12/02/17] Warfarin [Coumadin] 3 mg PO DAILY 09/15/17 [History Confirmed 12/02/17] Acetaminophen 650 mg RC Q4H PRN PRN 11/17/17 [History Confirmed 12/02/17] Acetaminophen [Tylenol] 2 tab PO Q4H PRN PRN 11/17/17 [History Confirmed 12/02/17] Atorvastatin Calcium 40 mg PO QHS 11/17/17 [History Confirmed 12/02/17] Bisacodyl [Dulcolax] 10 mg RECTAL DAILY PRN PRN 11/17/17 [History Confirmed 12/02/17] Guaifenesin [Robitussin] 10 ml PO Q4H PRN PRN 11/17/17 [History Confirmed 12/02/17] Mag Hydrox/Al Hydrox/Simeth [Antacid Suspension] 30 ml PO Q4H PRN PRN 11/17/17 [History Confirmed 12/02/17] Magnesium Hydroxide [Milk Of Magnesia] 30 ml PO DAILY PRN PRN 11/17/17 [History Confirmed 12/02/17] Na Phos,M-B/Na Phos,Di-Ba [Fleet Enema] 1 bottle RECTAL DAILY PRN PRN 11/17/17 [History Confirmed 12/02/17] Venlafaxine HCl [Effexor Xr] 75 mg PO DAILY 11/17/17 [History Confirmed 12/02/17] Ciprofloxacin [Cipro] 500 mg PO BID #14 tab 11/20/17 [Rx Confirmed 12/02/17] PFSH Surgical History History of open heart surgery (Resolved) Family History Brother Heart disease Alzheimer disease Father Alzheimer disease Social History Smoking Status: Never smoker HPI LT HIP: Chief Complaint: left hip Details: TAY ESCOBAR is a 82 year old M here today s/p left hip fracture dos 11/18/17. Patient is brought to his appointment on a cot and he is not ambulating. His incision is healing with no redness or drainage. He denies any SOB. ROS Const Reports system reviewed and no additional complaints, except as docu Eyes Reports system reviewed and no additional complaints, except as docu ENT Reports system reviewed and no additional complaints, except as docu Card Reports system reviewed and no additional complaints, except as docu Resp Reports system reviewed and no additional complaints, except as docu GI Reports system reviewed and no additional complaints, except as docu Reports system reviewed and no additional complaints, except as docu Musc Reports stiffness, Reports muscle weakness Skin/Breast Reports system reviewed and no additional complaints, except as docu Neuro Yes system reviewed and no additional complaints, except as docu Psych Reports system reviewed and no additional complaints, except as docu Endo Reports system reviewed and no additional complaints, except as docu Ortho Exam Left Hip Skin/Wound: Yes CDI, Yes healed, Yes wound cleaned Contralateral Normal: Yes Hip: Absent eccymosis, soft tissue swelling, erythema or TTP Greater Troch Homans Sign: No HIP: Distally neurovascular intact. Good pulses. EHL anterior gastrocsoleus peroneals 5 out of 5. [place] are still in place and will have the facility remove them as he is currently completely down and will have to get off of the ambulance gurney in order to remove them. Wounds otherwise look very good there is no signs of any erythema. Raeann are demonstrated,. X-rays: Evaluated myself patient-status post left hip supplementary nail for intertrochanteric femur fracture. Hardware well-seated well placed no signs of loosening or loss of reduction. Assessment AND Plan Problems 1. Orthopedic aftercare Z47.89 2. Closed displaced intertrochanteric fracture of left femur with routine healing, subsequent encounter F46.876N Plan Assessment: Left hip aftercare orthopedics status post supplement the nail for displaced intertrochanteric femur fracture. Doing well. Plan: See the patient back in 4 weeks. He is weightbearing as tolerated. We will get x-rays of his hip that particular time. Recommend that the nursing care facility that he is that he had a stable at this point time as it will be easier access limited due to his changing. Patient was followed up due to the weather here and would been problematic to try to get them out. Patient agrees the plan see him back in 4 Orders Orders: 12/06/17 0750 <Electronically signed by Odilon Slade DO> Date Odilon Slade DO Cosigner Signature: Date (if applicable) CC: HIP 2-3 VIEWS WITH Observed: 12/02/2017 Status: F Source: MICHELLE PELVIS 10:13 AM [facility] Imaging Services [address] [place] [address] Hip 2-3 Views with Pelvis MR#: [id number] Acct: [id number] Name: TAY ESCOBAR Rep #: [id number] : 1935 M 82 From: Travis Dixon MD PCP: Dread SHELBY,Juan Vázquez Status: REG CLI Study: Hip 2-3 Views with Pelvis Date of Exam: 12/02/17 Exam# [id number] Ordering Dr: Odilon Slade DO STUDY: X-RAY - PELVIS AND LEFT HIP REASON FOR EXAM: Male, 82 years old. Postoperative evaluation. TECHNIQUE: Radiological exam, hip, unilateral, with pelvis when performed; 2 or 3 views. COMPARISON: Comparison is made with prior examination dated November 18, 2017. FINDINGS: The patient is status post open reduction and fixation of the left intertrochanteric fracture using an intramedullary pancho and screw fixation device. There is good alignment. Metallic radiation seeds are seen within the prostate. RAD/Hip 2-3 Views with Pelvis IMPRESSION: Status post ORIF of the left intertrochanteric fracture. There is good alignment. Electronically Signed: Travis Dixon MD at 14:34 EST Tel [phone], Service support , CC: Odilon Slade DO; Juan Canada MD Counterintelligence Agent: Signed 12 LEAD ELECTROCARDIOGRAM Observed: 11/23/2017 Status: F Source: MICHELLE 3:43 PM [facility] Cardiovascular Services [address] [place] [address] 12 Lead EKG 11/17/17 2041 MR#: [id number] Acct: [id number] Name: TAY ESCOBAR Rep #: [id number] : 1935 82 From: Houston Huitron MD Attending Dr: Ricardo Davenport DO Status: DIS IN Ordering Dr: Hakan Escalona DO Date: 11/17/17 Location: [facility] Sex: M C Admitted: 11/17/17 Test Reason : FALL Blood Pressure : / mmHG Vent. Rate : 070 BPM Atrial Rate : 220 BPM P-R Int : 000 ms QRS Dur : 176 ms QT Int : 482 ms P-R-T Axes : 000 -74 087 degrees QTc Int : 520 ms Ventricular-paced rhythm Abnormal ECG Atrial fibrillation Confirmed by RADHA SHELBY, HOU[place]ON ([id number]), supervising film or videotape editor FLORINDA WINN ([id number]) on 11/23/2017 3:42:45 PM Referred By: HELADIO Confirmed By:HOUSTON HUITRON MD 11/23/17 1542 Date Houston Huitron MD CC: Juan Canada MD Signed DISCHARGE SUMMARY Observed: 11/20/2017 Status: F Source: MICHELLE 10:42 AM [facility] Medical Records Department [address] [facility] [place] [address] Discharge Summary 11/20/17 1039 MR#: [id number] Acct: [id number] Name: TAY ESCOBAR Rep #: [id number] : 1935 82 From: Ricardo Davenport DO PCP: Dread SHELBY,Juan Vázquez Status: ADM IN Y Location: [place] [address]-1 Discharge Date and Diagnosis - Problem List Patient Problems: Active and Suspected Problems UTI (urinary tract infection) (Acute) Hip fracture, left (Acute) Hip fracture, intertrochanteric (Acute) Closed hip fracture (Acute) Date of Admission: 11/17/17 Date of Discharge: 11/20/17 - Primary Discharge Diagnosis Active and Suspected Problems UTI (urinary tract infection) (Acute) Hip fracture, left (Acute) Hip fracture, intertrochanteric (Acute) Closed hip fracture (Acute) - Secondary Discharge Diagnosis Chronic Problems Prostate cancer (Chronic) Coronary artery disease (Chronic) Pacemaker (Chronic) Suprapubic catheter (Chronic) Hospital Course and Treatment Imaging Results: Clinical Impression(s) from Imaging Studies Hip/Pelvis X-Ray 11/17/17 20:07 IMPRESSION: Intertrochanteric fracture of the left proximal femur. Electronically Signed: Maykel Keating, at 21:18 EST Tel , Service support , Chest X-Ray 11/17/17 20:27 IMPRESSION: No infiltrate. Stable mild cardiomegaly. Electronically Signed: Abraham Ackerman DO at 21:41 EST , Service support , Hip X-Ray 11/18/17 15:58 IMPRESSION: Fluoroscopic guidance during placement of a left hip screw. Electronically Signed: Maykel Keating, at 17:44 EST Tel , Service support , Hip X-Ray 11/18/17 17:31 IMPRESSION: Interval placement of a left-sided hip screw with intact hardware and satisfactory alignment. Electronically Signed: Maykel Keating, at 20:22 EST Tel , Service support , Odilon Slade, Operations: - - Left hip cephalo-medullary nail Procedures: None Summary of Care Provided: The patient is a 82 year old M had a fall and then with left hip pain. Patient was found to have a left intratrochanteric fracture. Patient had to have his INR reduced to proceed with surgery. Patient had a left cephalo-medullary nail performed on the by Dr. Slade. Patient has done well since then. Patient has be reintroduced on his Coumadin and is otherwise remained stable. Patient will be going back to [facility] today in stable condition. [] Discharge Diet: No Restrictions Discharge Activity: Return to Normal Activity Call your doctor if your incision/area has: Continuous Slow Oozing, Increased Pain/ Swelling Call your doctor if you observe: Fever of 101 or Higher Home Medications: Medications to take at Discharge Aspirin [Aspirin, Baby] 81 mg PO DAILY@0800 09/15/17 Colestipol Tablet [Colestid Tablet] 2 gm PO TIDCM 09/15/17 Divalproex Sodium [Depakote] 250 mg PO BIDCM 09/15/17 Docusate Sodium [Stool Softener] 100 mg PO DAILY 09/15/17 Galantamine HBr [Razadyne] 8 mg PO BID 09/15/17 Memantine HCl [Namenda Xr] 28 mg PO DINNER 09/15/17 Warfarin [Coumadin] 3 mg PO DAILY 09/15/17 Acetaminophen 650 mg RC Q4H PRN PRN 11/17/17 Acetaminophen [Tylenol] 2 tab PO Q4H PRN PRN 11/17/17 Atorvastatin Calcium 40 mg PO QHS 11/17/17 Bisacodyl [Dulcolax] 10 mg RECTAL DAILY PRN PRN 11/17/17 Guaifenesin [Robitussin] 10 ml PO Q4H PRN PRN 11/17/17 Mag Hydrox/Al Hydrox/Simeth [Antacid Suspension] 30 ml PO Q4H PRN PRN 11/17/17 Magnesium Hydroxide [Milk Of Magnesia] 30 ml PO DAILY PRN PRN 11/17/17 Na Phos,M-B/Na Phos,Di-Ba [Fleet Enema] 1 bottle RECTAL DAILY PRN PRN 11/17/17 Venlafaxine HCl [Effexor Xr] 75 mg PO DAILY 11/17/17 Ciprofloxacin [Cipro] 500 mg PO BID #14 tablet 11/20/17 Following Prescrptions Were Given to Patient: Ciprofloxacin [Cipro] 500 mg PO BID #14 tablet Primary Care Physician: Juan Canada Chi, MD [Primary Care Provider] - Within 2 Weeks Please Follow Up With: Odilon Slade DO When: 1-2 weeks Disposition: Group Home facility Minutes spent on discharge:: 32 Patient Condition:: Fair Meaningful Use Info Meaningful Use Diagnoses (Choose all that apply): None applicable Code Visit Inpatient E AND M: [id number] Disch Hosp 11/20/17 1042 <Electronically signed by Ricardo Davenport DO> Date Ricardo Davenport DO Cosigner Signature (if applicable): Date CC: Ricardo Davenport DO; Odilon Slade DO; Juan Canada MD Signed TRANSFER TO [facility] Observed: 11/20/2017 Status: F Source: [facility] 10:38 AM [facility] Medical Records Department [address] [place] [address] [facility] MR#: [id number] Acct: [id number] Name: TAY ESCOBAR Rep #: [id number] : 1935 82 From: Ricardo Davenport DO PCP: Juan Canada MD, Chi Status: ADM IN TAY ESCOBAR (Patient) (Health Ins. Claim No.) (Day of Discharge to Facility) Certification of patient admission REQUIRED AT TIME OF ADMISSION. I CERTIFY THAT POST-[facility] SERVICES ARE REQUIRED TO BE GIVEN ON AN IN-PATIENT BASIS BECAUSE OF THE ABOVE NAMED PATIENT'S NEED FOR SENIOR CARE CARE ON A CONTINUING BASIS FOR THE CONDITION(S) FOR WHICH HE/SHE WAS RECEIVING IN-PATIENT HOSPITAL SERVICES PRIOR TO HIS/HER TRANSFER TO THE [facility]. 11/20/17 1038 <Electronically signed by Ricardo Davenport DO> Date Ricardo Davenport DO - Diet 11/19/17 00:10 Diet: Regular Diet Is pt able to select menu?: Yes - Routine Orders/Code Status Enema Type: Fleetz Routine Lab Work: CBC, BMP, INR - Q wednesday and - Wound(s) LT HIP Wound Type: Surgical Incision Dressing Change: Dry Sterile Dressing - Therapies Physical Therapy: Eval and Treat Occupational Therapy: Eval and Treat - Allergies/Procedures Done in Hospital Allergies/Adverse Reactions: Allergies No Known Allergies Allergy (Verified 11/17/17 19:40) - Type of Care/Length of Stay Estimated LOS: Convalescent Care Less Than 30 days Type of Care Needed: Skilled Rehab Potential: Fair Prognosis: Fair - Additional Orders/Day of Discharge Day of Discharge: 11/20/17 - Dietary and Speech Recommendations Dietitian Recommendations/Changes: Rec adv diet as tolerated s/p procedure to regular. Ensure Enlive w/ medpass when diet advanced. - Follow Up Care Primary Care Physician: Juan Canada Chi, MD [Primary Care Provider] - Within 2 Weeks Please Follow Up With: Odilon Slade DO When: 1-2 weeks 11/20/17 1038 <Electronically signed by Ricardo Davenport DO> Date Ricardo Davenport DO CC: Odilon Slade DO; Juan Canada MD Signed PROTHROMBIN TIME W/INR Collected: 11/20/2017 Status: F Source: MICHELLE 6:34 AM [facility]POS[facility] TYPE CODE TESTS RESULT OUT OF RANGE REFERENCE UNITS LAB L300.4150 11.7-14.9 SECONDS High PROTIME 16.8 LAB L300.4200 Normal INR 1.4 Performed By: #### L300.3900 #### [facility] [address] [place], [address] CBC W/DIFF, AUTOMATED Collected: 11/20/2017 Status: F Source: MICHELLE 6:34 AM [facility] TYPE CODE TESTS RESULT OUT OF RANGE REFERENCE UNITS LAB L100.1000 4.4-11.0 K/mm3 High WBC 12.0 LAB L100.1200 4.6-6.2 M/mm3 Low RBC 3.25 LAB L100.1300 13.0-16.5 g/dl Low HGB 9.7 LAB L100.1400 40-54 % Low HCT 30.0 LAB L100.1500 80-94 fL Normal MCV 92.3 LAB L100.1600 27.0-32.0 pg Normal MCH 29.8 LAB L100.1700 32-36 g/gl Normal MCHC 32.3 LAB L100.1810 11.6-14.6 % Normal RDW CV 13.7 LAB L100.1820 35.1-43.9 fl High RDW SD 45.9 LAB L100.1900 150-450 K/mm3 Low PLT 139 LAB L100.2000 6.2-12.0 fl Normal MPV 10.2 LAB L100.2100 47-70 % Normal NEUT% 69.0 LAB L100.2200 19-41 % Low LY% 15.0 LAB L100.2300 0-10 % High MONO% 15.1 LAB L100.2400 0-5 % Normal EO% 0.6 LAB L100.2500 0-1 % Normal BASO% 0.1 LAB L100.2550 0.0-0.9 % Normal IM GRAN % 0.200 Result Comment: IG% - Immature Granulocytes (promyelocytes, myelocytes and metamyelocytes) > 1% indicates that a LEFT SHIFT is Present. LAB L100.2620 2.0-7.7 X10 3/uL High Absolute Neut 8.3 LAB L100.2720 0.83-4.51 X10 3/ul Normal Absolute Lymph 1.80 Performed By: #### L100.0100 #### [facility] [place], [address] BASIC METABOLIC Collected: 11/20/2017 Status: F Source: MICHELLE PROFILE (BMP) 6:34 AM [facility]POS[facility] TYPE CODE TESTS RESULT OUT OF RANGE REFERENCE UNITS LAB L501.0100 70-110 mg/dL Normal GLU 104 LAB L501.1000 7-18 mg/dL Low BUN 6 LAB L501.1100 0.70-1.30 mg/dL Low 0.51 CREAT,SERUM Result Comment: The validity of the calculated GFR AND GFRAA in patients over 70 years has not been determined. Clinical correlation is essential. LAB L501.1110 >60 mL/min Normal EST GFR 165 Result Comment: Non- GFR Calc LAB L501.1115 >60 mL/min Normal EST GFR - AA 199 Result Comment: GFR Calc LAB L501.1255 ml/min Normal Estimated CRCL 59.90 LAB L501.1300 10-20 RATIO Normal BUN/CRE 11.7 LAB L501.2200 8.5-10 mg/dL Low .1 CA 7.7 LAB L501.5300 136-14 mmol/L Low 5 NA 133 LAB L501.5600 3.5-5. mmol/L Normal 1 K 4.2 LAB L501.5900 98-107 mmol/L Normal CL 98 LAB L501.6100 21.0-3 mmol/L Normal 2.0 CO2 28.0 LAB L501.6200 5-15 Normal GAP 7 Performed By: #### L500.2500 #### [facility] [address] [facility] [place], [address] HISTORY AND PHYSICAL Observed: 11/19/2017 Status: F Source: [place] EXAM 7:43 PM [facility] Medical Records Department [address] [place] [address] History and Physical 11/17/17 2234 MR#: [id number] Acct: [id number] Name: TAY ESCOBAR Rep #: [id number] : 1935 82 From: Sal Beltran MD PCP: Dread SHELBY,Juan Vázquez Status: ADM IN Y Location: [facility] [id number] Problem List (1) Hip fracture, left Status: Acute (2) Hip fracture, intertrochanteric Status: Acute (3) Closed hip fracture Status: Acute History of Present Illness Date of Admission: 11/17/17 The patient is a 82 year old M, group home resident, history of atrial fibrillation on Coumadin, coronary artery disease, dementia, brought in with reports of left hip pain following a fall earlier in the day. Patient unable to give reliable history due to his dementia. No loss of consciousness or head trauma was reported. ED evaluation remarkable for blood pressure 142/75, pulse rate 70/min, respiration 16/min, oxygen saturation 100% on room air. Hemoglobin 12.8, glucose 129, INR 2.4, x-ray pelvis left hip remarkable for intertrochanteric fracture of the left proximal femur. He was given analgesics. [] Past Medical History Past Medical History (Chronic Problems): Chronic Problems Prostate cancer (Chronic) Coronary artery disease (Chronic) Pacemaker (Chronic) Suprapubic catheter (Chronic) Allergies No Known Allergies Allergy (Verified 11/17/17 19:40) Home Medications: Ambulatory Orders Medication Instructions Recorded Aspirin [Aspirin, Baby] 81 mg PO DAILY@0800 09/15/17 Colestipol Tablet [Colestid Tablet] 2 gm PO TIDCM 09/15/17 Divalproex Sodium [Depakote] 250 mg PO BIDCM 09/15/17 Surgical History: pacemaker implantation Psychiatric History: No pertinent psych hx Lives: Jail Smoking Status: Never smoker Alcohol: None Drugs: None - *Family History Maternal History Items: No pertinent history Review of Systems Unable to obtain accurate/complete ROS d/t: dementia with inconsistent responses VTE Information - Inpt Only VTE Present on Admission: No VTE Mechan Device Prophylaxis: SCD's VTE Pharm Prophylaxis ordered?: Yes Patient Problems: Active and Suspected Problems Hip fracture, left (Acute) Hip fracture, intertrochanteric (Acute) Closed hip fracture (Acute) - Physical Exam General: Alert, Cooperative, No apparent distress, Confused HEENT: PERRLA, Normocephalic Oral: Dry Mucosa Neck: Supple, No JVD, Trachea Midline Lungs: Clear to auscultation Cardiovascular: Irregular Rate Abdomen: Bowel Sounds Present, Soft Extremities: Tenderness - left hip slightly swollen and tender. LLE externally rotated and shortened Musculoskeletal: No Muscle Wasting Lymphatic: No Cervical, Supraclavicular, or Inguinal Adenopathy Neurological: Cranial nerves II-XII grossly intact Psych/Mental Status: Normal Affect Vital Signs Temp Pulse Resp BP Pulse Ox 97.4 F L 70 16 142/75 H 100 11/17/17 19:34 11/17/17 19:34 11/17/17 19:34 11/17/17 19:34 11/17/17 19:34 Oxygen Delivery Method Room Air Weight: 74.843 kg Body Mass Index (BMI) 25.8 Laboratory Tests Past 24 Hrs WBC RBC Hgb Hct MCV MCH MCHC RDW RDW Differential Plt Count Assessment/Plan Active and Suspected Problems Hip fracture, left (Acute) Hip fracture, intertrochanteric (Acute) Closed hip fracture (Acute) 1. Left proximal femoral intertrochanteric fracture secondary to fall. Analgesics. Consult orthopedic surgery. 2. Atrial fibrillation rate controlled. INR therapeutic at 2.4. Resume Coumadin pending evaluation by orthopedic surgery. Daily INR. 3. dementia. Resume home medications. Continue supportive care. 4. Anemia. Asymptomatic. Monitor. 5. Coronary artery disease. No acute issues. Resume cardioprotective regimen. Code Visit Inpatient E AND M: 63488 Init Hosp L2 11/19/171942 <Electronically signed by Sal Beltran MD> Date Sal Beltran MD Cosigner Signature: Date (if applicable) CC: Sal Beltran MD; Juan Canada MD Signed PROTHROMBIN TIME W/INR Collected: 11/19/2017 Status: F Source: MICHELLE 5:43 AM [facility] REPOS[facility]ORY TYPE CODE TESTS RESULT OUT OF RANGE REFERENCE UNITS LAB L300.4150 11.7-14.9 SECONDS High PROTIME 16.8 LAB L300.4200 Normal INR 1.4 Performed By: #### L300.3900 #### [facility] [address] [place], [address] BASIC METABOLIC Collected: 11/19/2017 Status: F Source: MICHELLE PROFILE (BMP) 5:43 AM [facility]POS[facility] TYPE CODE TESTS RESULT OUT OF RANGE REFERENCE UNITS LAB L501.0100 70-110 mg/dL High GLU 121 Result Comment: Fasting Glucose result from 110 to <126 mg/dL suggests IMPAIRED HOMEOSTASIS per A.D.A. criteria. LAB L501.1000 7-18 mg/dL Normal BUN 8 LAB L501.1100 0.70-1.30 mg/dL Low CREAT,SERUM 0.57 Result Comment: The validity of the calculated GFR AND GFRAA in patients over 70 years has not been determined. Clinical correlation is essential. LAB L501.1110 >60 mL/min Normal EST GFR 147 Result Comment: Non- GFR Calc LAB L501.1115 >60 mL/min Normal EST GFR - AA 177 Result Comment: GFR Calc LAB L501.1255 ml/min Normal Estimated CRCL 59.90 LAB L501.1300 10-20 RATIO Normal BUN/CRE 14.1 LAB L501.2200 8.5-10 mg/dL Low .1 CA 7.9 LAB L501.5300 136-14 mmol/L Low 5 NA 134 LAB L501.5600 3.5-5. mmol/L Normal 1 K 3.6 LAB L501.5900 98-107 mmol/L Normal CL 99 LAB L501.6100 21.0-3 mmol/L Normal 2.0 CO2 27.0 LAB L501.6200 5-15 Normal GAP 8 Performed By: #### L500.2500, L500.4100 #### [facility] [address] [place], [address] LIPID PROFILE Collected: 11/19/2017 Status: F Source: [place] 5:43 AM [facility] REPOSITORY TYPE CODE TESTS RESULT OUT OF RANGE REFERENCE UNITS LAB L501.4900 200 mg/dL Normal CHOL 75 Result Comment: <200 mg/dL Desirable 200-240 mg/dL Borderline >240 mg/dL High Risk LAB L501.5000 mg/dL Normal TRIG 44 Result Comment: The drugs N-Acetylcysteine and Metamizole may falsely depress this assay. Serum Triglycerides Reference Interval Normal <150 mg/dL Borderline high 150 - 199 mg/dL High 200 - 499 mg/dL Very High > or = 500 mg/dL LAB L501.6400 mg/dL Low HDL 36 Result Comment: The drugs N-Acetylcysteine and Metamizole may falsely depress this assay. Reference Range HDL <40 mg/dL Low HDL Cholesterol HDL >or= 60 mg/dL High HDL Cholesterol LAB L501.6500 0-130 mg/dL Normal LDL 30 LAB L501.6600 5-40 mg/dL Normal VLDL 9 Performed By: #### L500.2500, L500.4100 #### [facility] [place], [address] CBC W/DIFF, AUTOMATED Collected: 11/19/2017 Status: F Source: [place] 5:43 AM [facility] REPOSITORY TYPE CODE TESTS RESULT OUT OF RANGE REFERENCE UNITS LAB L100.1000 4.4-11.0 K/mm3 High WBC 12.1 LAB L100.1200 4.6-6.2 M/mm3 Low RBC 3.36 LAB L100.1300 13.0-16.5 g/dl Low HGB 10.1 LAB L100.1400 40-54 % Low HCT 30.8 LAB L100.1500 80-94 fL Normal MCV 91.7 LAB L100.1600 27.0-32.0 pg Normal MCH 30.1 LAB L100.1700 32-36 g/gl Normal MCHC 32.8 LAB L100.1810 11.6-14.6 % Normal RDW CV 13.3 LAB L100.1820 35.1-43.9 fl Normal RDW SD 43.3 LAB L100.1900 150-450 K/mm3 Low PLT 139 LAB L100.2000 6.2-12.0 fl Normal MPV 10.5 LAB L100.2100 47-70 % High NEUT% 71.2 LAB L100.2200 19-41 % Low LY% 11.9 LAB L100.2300 0-10 % High MONO% 16.3 LAB L100.2400 0-5 % Normal EO% 0.3 LAB L100.2500 0-1 % Normal BASO% 0.1 LAB L100.2550 0.0-0.9 % Normal IM GRAN % 0.200 Result Comment: IG% - Immature Granulocytes (promyelocytes, myelocytes and metamyelocytes) > 1% indicates that a LEFT SHIFT is Present. LAB L100.2620 2.0-7.7 X10 3/uL High Absolute Neut 8.6 LAB L100.2720 0.83-4.51 X10 3/ul Normal Absolute Lymph 1.44 LAB L100.4500 Normal SMEAR COMMENT SCANNED Result Comment: SLIGHT MONOCYTOSIS NOTED LAB L100.9900 Normal Reviewed PATH REV Result Comment: Neutrophilic leukocytosis. Normocytic anemia. Clinical correlation necessary. Mick Jay M.D. 11/19/17 AMENDED REPORT 11/19/17 1219 PATH REV previously reported as: March Performed By: #### L100.0100 #### [facility] [address] [place], [address] CBC-COMPLETE BLOOD CNT Collected: 11/18/2017 Status: F Source: [place] NO DIFF 5:48 PM [facility] REPOS[facility]ORY Order Comment: Comments: To be done in PACU TYPE CODE TESTS RESULT OUT OF RANGE REFERENCE UNITS LAB L100.1000 4.4-11.0 K/mm3 High WBC 14.5 LAB L100.1200 4.6-6.2 M/mm3 Low RBC 3.70 LAB L100.1300 13.0-16.5 g/dl Low HGB 11.3 LAB L100.1400 40-54 % Low HCT 33.8 LAB L100.1500 80-94 fL Normal MCV 91.4 LAB L100.1600 27.0-32.0 pg Normal MCH 30.5 LAB L100.1700 32-36 g/gl Normal MCHC 33.4 LAB L100.1810 11.6-14.6 % Normal RDW CV 13.4 LAB L100.1820 35.1-43.9 fl Normal RDW SD 43.5 LAB L100.1900 150-450 K/mm3 Low PLT 148 LAB L100.2000 6.2-12.0 fl Normal MPV 10.1 Performed By: #### L100.0500 #### [facility] [address] [place], [place], [address] OPERATIVE REPORT Observed: 11/18/2017 Status: F Source: [place] 5:39 PM [facility] Medical Records Department [address] [place] [address] Operative Report 11/18/17 1734 MR#: [id number] Acct: [id number] Name: TAY ESCOBAR Rep #: [id number] : 1935 82 From: Odilon Slade DO PCP: Dread SHELBY,Juan Vázquez Status: ADM IN Y Location: [facility] RU972-0 Report of Operation Date of Procedure: 11/18/17 Pre-Operative Diagnosis: LEFT HIP intertrochanteric femur fracture Post-Operative Diagnosis: Same as above Surgery/Procedure Performed:: Left hip cephalo-medullary nail Antoine gamma system Description of Surgical Findings:: 82-year-old male who sustained a fall at his group home where he is in the dementia osorio resulting in a left closed displaced intertrochanteric femur fracture. Patient was admitted by the hospitalist team and found to be appropriate for operative intervention. Patient received FFP prior surgical intervention due to a slightly elevated INR of 2.5. Patient was counseled and consented through his family who provide his medical power of attorney recruiter. Patient was met in the holding area where his left lower extremity was marked and identified by the with surgeon taken the operating room in satisfactory condition with somewhat to place to identify patient up procedure limb. Patient received 2 g Ancef and 1 g of TXA. He underwent a successful intubation he was then placed onto the fracture table using standard technique. His right lower extremity was placed into a well-padded lithotomy position. His left lower extremity was placed into the fracture boot and gentle traction applied. Under C-arm visualization a appropriate anatomic reduction was undertaken and felt to be in good positioning. Patient was then prepped and draped in the usual fashion. Patient had a 3 cm incision made just proximal to the left greater trochanter down through the IT band and tensor fascia adriano. The greater trochanter had somewhat of a longitudinal split identified by palpation. Subsequent placed the guidewire as far lateral as we could without moving into the neck region and was passed essentially by hand due to the patient's bone fracture pattern and quality. At that point time we broached reamed using standard technique. Again confirmation of position was confirmed in both AP and lateral visualization the C-arm. A long guidewire was then introduced and we are broke we appropriately broach reamed to 12.5 mm in anticipation of placing a 11 mm 130 nail. I elected to use a short nail at this point time. The short nail was introduced again we are going to use 130 neck shaft angle. There was found to be in appropriate position. We then placed our guidewire to the center center portion of the femoral head again using C-arm visualization in multiple planes. Overall nail length measured roughly 115. The gamma screw was then introduced using standard technique and fix accordingly. It was then locked proximally using locking screw. And to make it this allowed for a static construct. We then placed the transverse screw into the static hole distally measuring proximally 42.5 mm in overall length. Again we had excellent placement positioning and anatomic placement of the screws and nail. Wounds were then copiously irrigated and closed layer technique using 0 Vicryl 3-0 Vicryl and staple techniques across all 3 incisions. Patient was then dressed in the usual fashion with Xeroform 4 x 4's ABDs and Medipore tape. I was scrubbed and available all time during our procedure. There is no drains or complications. Implants included the Ruben gamma system again a short nail 130 neck shaft angle with a proximal locking screw to make a static construct and a distal transverse interlock screw. Patient be admitted to floor for 24 hours of IV antibiotics appropriate IV and p.o. pain medication. He will be weightbearing as tolerated to left lower extremity. We will monitor his H AND H due to his anticoagulation treatment. There is any major issues please contact me. 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 - Complications None - Admit VTE Documentation VTE Present on Admission: No VTE Mechan Device Prophylaxis: SCD's, Knee High GEE Hose VTE Pharm Prophylaxis ordered?: Yes 11/18/17 3709 <Electronically signed by Odilon Slade DO> Date Odilon Slade DO CC: Odilon Slade DO; Juan Canada MD Signed HIP MIN 2 VIEWS Observed: 11/18/2017 Status: F Source: [place] (PORTABLE) 5:32 PM [facility] Imaging Services [address] [place] [address] Hip Min 2 Views (Portable) MR#: [id number] Acct: [id number] Name: TAY ESCOBAR #: [id number] : 1935 M 82 From: Maykel Keating MD PCP: Jaun Canada MD, Chi Status: ADM IN Study: Hip Min 2 Views (Portable) Date of Exam: 11/18/17 Exam# [id number] Ordering Dr: Odilon Slade DO STUDY: X-RAY - PELVIS AND LEFT HIP REASON FOR EXAM: Male, 82 years old. Postop TECHNIQUE: Radiological exam, hip, unilateral, with pelvis when performed; 2 or 3 views. COMPARISON: 11/17/2017 FINDINGS: There has been interval placement of a left-sided hip screw. The hardware is intact and alignment is satisfactory. There is redemonstration of a left intertrochanteric fracture. The remainder of the visualized osseous structures are intact. RAD/Hip Min 2 Views (Portable) IMPRESSION: Interval placement of a left-sided hip screw with intact hardware and satisfactory alignment. Electronically Signed: Maykel Keating, at 20:22 EST Tel , Service support , CC: Odilon Slade DO; Juan Canada MD Counterintelligence Agent: Signed HIP MIN 2 VIEWS Observed: 11/18/2017 Status: F Source: [place] (PORTABLE) 3:58 PM [facility] Imaging Services [address] [place] [id number] Hip Min 2 Views (Portable) MR#: [id number] Acct: [id number] Name: TAY ESCOBAR Rep #: [id number] : 1935 M 82 From: Maykel Keating MD PCP: Juan Canada MD, Chi Status: ADM IN Study: Hip Min 2 Views (Portable) Date of Exam: 11/18/17 Exam# [id number] Ordering Dr: Odilon Slade DO STUDY: X-RAY - PELVIS AND LEFT HIP REASON FOR EXAM: Male, 82 years old. Left hip nail TECHNIQUE: Intraoperative fluoroscopic exam, hip, unilateral, with pelvis when performed; 2 or 3 views. COMPARISON: 11/17/2017 FINDINGS: Fluoroscopic guidance was provided in the OR for placement of a left hip screw. The hardware is intact and alignment is grossly normal. RAD/Hip Min 2 Views (Portable) IMPRESSION: Fluoroscopic guidance during placement of a left hip screw. Electronically Signed: Maykel Keating, at 17:44 EST Tel , Service support , CC: Odilon Slade DO; Juan Canada MD Counterintelligence Agent: Signed URINALYSIS, COMPLETE Collected: 11/18/2017 Status: F Source: [place] 9:30 AM [facility] Order Comment: How was Urine Obtained? CATHETER SPECIMEN TYPE CODE TESTS RESULT OUT OF RANGE REFERENCE UNITS LAB L400.3000 Yellow COLOR Normal Yellow LAB L400.3050 Clear Normal CLARITY Cloudy LAB L400.3200 Normal mg/dl Normal GLUCOSE, UR Normal LAB L400.3300 Negative mg/dL Normal BILIRUBIN URINE Negative LAB L400.3400 Negative mg/dl High 15 KETONE UR LAB L400.3465 1.002-1.030 Normal SP.GR. DIPSTX 1.015 LAB L400.3550 5.0 - 8.0 pH UR Normal 7.0 LAB L400.3600 Negative mg/dl High PROT 30 DIPSTX LAB L400.3700 Normal mg/dl Normal UROBILI Normal LAB L400.3750 Negative High NITRITE UR Positive LAB L400.3780 Negative /ul High 25 OCCULT BLOOD-UR LAB L400.3800 Negative /ul High LEUK ESTERASE 500 LAB L400.4050 0-5 /hpf WBC Normal 5-10 SEEN LAB L400.4100 0-5 /hpf Normal RBC-UA 0-5 SEEN LAB L400.4150 0-5 /hpf SQUAM Normal EPI 0-5 SEEN LAB L400.4300 None Seen /hpf 2+ Normal BACTERIA LAB L400.4350 <or=2+ /hpf 0 Normal MUCUS, URINE SEEN Performed By: #### L400.0001 #### [facility] [address] [facility] [place], [address] Observed: 11/18/2017 Status: F Source: [place] CULTURE, URINE 9:30 AM [facility] Urine Culture ORGANISM 1: Klebsiella pneumoniae sp pneum [place] Count 50,000-80,000 ORGANISM 2: Pseudomonas aeroginosa [place] Count 50,000-80,000 Klebsiella pneumoniae sp pneum: REACTION Amoxacillin/Clavulanic Acid $ <=2 S Ampicillin $ >=32 R Ampicillin/Sulbactam $ 4 S Cefazolin $ <=4 S Cefepime $ <=1 S Ceftriaxone $ <=1 S Ciprofloxacin $ <=0.25 S ESBL - Ertapenim $$$ <=0.5 S Gentamicin $ <=1 S Imipenem *NF 0.5 S Levofloxacin $ <=0.12 S Nitrofurantoin $ 64 I Piperacillin/Tazobactam $$ <=4 S Tobramycin $ <=1 S Trimethoprim/Sulfametho $ <=20 S (NF) indicates non-formulary drug at [facility]. Approval by Infectious Disease Specialist required before non-formulary drugs may be ordered and/or dispensed. Pseudomonas aeroginosa: REACTION Cefepime $ <=1 S Ceftazidime *NF <=1 S Ciprofloxacin $ <=0.25 S Gentamicin $ <=1 S Imipenem *NF 2 S Levofloxacin $ 0.25 S Piperacillin/Tazobactam $$ <=4 S Tobramycin $ <=1 S (NF) indicates non-formulary drug at [facility]. Approval by Infectious Disease Specialist required before non-formulary drugs may be ordered and/or dispensed. Performed By: #### M100.0650 #### [facility] [address] [place], [address] PROTHROMBIN TIME W/INR Collected: 11/18/2017 Status: F Source: [place] 8:25 AM [facility] TYPE CODE TESTS RESULT OUT OF RANGE REFERENCE UNITS LAB L300.4150 11.7-14.9 SECONDS High PROTIME 26.0 LAB L300.4200 Normal INR 2.5 Performed By: #### L300.3900 #### [facility] [address] [place], [address] CONSULTATION Observed: 11/18/2017 Status: F Source: [place] 8:05 AM [facility] Medical Records Department [address] [place] [address] Consultation 11/18/17 0801 MR#: [id number] Acct: [id number] Name: TAY ESCOBAR Rep #: [id number] : 1935 82 From: Odilon Slade DO PCP: Dread SHELBY,Juan Vázquez Status: ADM IN Y Location: [facility] [id number] - Consult Date of Consult: 11/18/17 - Reason for Consult 82-year-old male with a history of A. fib who lives at [facility] sustained a fall from standing height resulting in a left closed intertrochanteric femur fracture. Patient was brought to the emergency room for evaluation subsequent admitted by the hospitalist team. I was consulted for consideration for operative intervention. She has underlying history of dementia and the nurses felt that he uses his in terms of making medical decisions for him. Patient was seen up on the floor and had already been evaluated by the hospitalist team. Patient's initial INR was 2.4 at 2000 hrs. last p.m. New INR is pending for possible surgical intervention today. Patient denies any other associated upper extremity or lower extremity pain. He will point to his left hip in terms of discomfort. He is actively moving his lower extremities across the ankle joints. Currently being monitored on telemetry. Objective patient otherwise alert and oriented to person and time as he was able to read the clock and knew the date, he did know that he was in the hospital but was unsure the name. Patient otherwise remained distally neurovascular intact from L1-S1 distributions bilaterally. EHL anterior tibialis gastrocsoleus peroneals quads and hamstrings were grossly 5 out of 5. Patient allow full range of motion about the knee ankle and hip on his right side. He is mildly short and externally rotated on the left and guards with gentle motion. Patient shows no signs of near long bone fractures with palpation. He has no signs of knee effusions in both knees remain ligamentously stable. Patient was otherwise actively moving his bilateral upper extremities and shook my hand. With his right upper extremity. And would perform 5 out of 5 strength maneuvers to his left. X-rays: Evaluated myself with the patient shows him to have a left intertrochanteric femur fracture displaced. Assessment: Left hip intertrochanteric femur fracture-initial encounter closed displaced. History of dementia. History of A. fib. Plan: At this point time we will do not talk to the hospitalist team about getting his INR down level at least below 2 would be nice just to prevent any postoperative changes therefore trending down I am sure that operative intervention will be fine in terms of his Coumadin medication and rebound we should not show any significant bleeding issues. Consideration for TXA could also be made prior to operative intervention to help control his blood loss. We will go ahead and feed him breakfast as I anticipate surgery later in the afternoon and then make him n.p.o. from that point on. The plan will be for left hip cephalo-medullary nail using the gamma system versus open reduction internal fixation. Patient will be counseled and consented through his about the risks and benefits the procedure to include damage to nerves muscles arteries veins develop a DVT PE infection and screw cut out and need for further operative intervention. At this point time will allow the nurses to contact the and if she has any other specific information or questions I will be happy to talk to her. If the patient's INR remains elevated consideration for surgical intervention intervention tomorrow in the late morning based on my availability. Any major issues please contact. 11/18/17 0805 <Electronically signed by Odilon Slade DO> Date Odilon Slade DO Cosigner Signature (if applicable): Date CC: Odilon Slade DO; Juan Canada MD Signed CBC W/DIFF, AUTOMATED Collected: 11/18/2017 Status: F Source: [place] 6:42 AM [facility] TYPE CODE TESTS RESULT OUT OF RANGE REFERENCE UNITS LAB L100.1000 4.4-11.0 K/mm3 High WBC 12.5 LAB L100.1200 4.6-6.2 M/mm3 Low RBC 3.94 LAB L100.1300 13.0-16.5 g/dl Low HGB 12.1 LAB L100.1400 40-54 % Low HCT 36.0 LAB L100.1500 80-94 fL Normal MCV 91.4 LAB L100.1600 27.0-32.0 pg Normal MCH 30.7 LAB L100.1700 32-36 g/gl Normal MCHC 33.6 LAB L100.1810 11.6-14.6 % Normal RDW CV 13.3 LAB L100.1820 35.1-43.9 fl Normal RDW SD 43.7 LAB L100.1900 150-450 K/mm3 Low PLT 146 LAB L100.2000 6.2-12.0 fl Normal MPV 10.4 LAB L100.2100 47-70 % High NEUT% 75.4 LAB L100.2200 19-41 % Low LY% 11.7 LAB L100.2300 0-10 % High MONO% 12.4 LAB L100.2400 0-5 % Normal EO% 0.2 LAB L100.2500 0-1 % Normal BASO% 0.1 LAB L100.2550 0.0-0.9 % Normal IM GRAN % 0.200 Result Comment: IG% - Immature Granulocytes (promyelocytes, myelocytes and metamyelocytes) > 1% indicates that a LEFT SHIFT is Present. LAB L100.2620 2.0-7.7 X10 3/uL High Absolute Neut 9.4 LAB L100.2720 0.83-4.51 X10 3/ul Normal Absolute Lymph 1.46 LAB L100.4500 SMEAR Normal COMMENT Result Comment: MONOCYTOSIS NOTED LAB L100.9900 Normal Reviewed PATH REV Result Comment: Neutrophilic leukocytosis. Clinical correlation necessary. Mick Jay M.D. 11/18/17 AMENDED REPORT 11/18/17 1233 PATH REV previously reported as: March sacha Performed By: #### L100.0100 #### [facility] [address], [address] BASIC METABOLIC Collected: 11/18/2017 Status: F Source: [place] PROFILE ([facility]) 6:42 AM [facility] TYPE CODE TESTS RESULT OUT OF RANGE REFERENCE UNITS LAB L501.0100 70-110 mg/dL Normal GLU 105 LAB L501.1000 7-18 mg/dL Normal BUN 9 LAB L501.1100 0.70-1.30 mg/dL Low 0.60 CREAT,SERUM Result Comment: The validity of the calculated GFR AND GFRAA in patients over 70 years has not been determined. Clinical correlation is essential. LAB L501.1110 >60 mL/min Normal EST GFR 138 Result Comment: Non- GFR Calc LAB L501.1115 >60 mL/min Normal EST GFR - AA 167 Result Comment: GFR Calc LAB L501.1255 ml/min Normal Estimated CRCL 59.90 LAB L501.1300 10-20 RATIO Normal BUN/CRE 15.1 LAB L501.2200 8.5-10 mg/dL Low .1 CA 8.2 LAB L501.5300 136-14 mmol/L Low 5 NA 135 LAB L501.5600 3.5-5. mmol/L Normal 1 K 3.9 LAB L501.5900 98-107 mmol/L Normal CL 101 LAB L501.6100 21.0-3 mmol/L Normal 2.0 CO2 26.0 LAB L501.6200 5-15 Normal GAP 8 Performed By: #### L500.2500 #### [facility] [address] [place], [address] EMERGENCY DEPARTMENT Observed: 11/18/2017 Status: F Source: [place] SUMMARY 12:35 AM [facility] RE[facility]IT[facility] Medical Records Department [address] [facility] [place] [address] Emergency Department Summary 11/17/178 MR#: [id number] Acct: [id number] Name: TAY ESCOBAR Rep #: [id number] : 1935 82 From: Hakan Escalona DO PCP: Dread SHELBY,Juan Vázquez Status: ADM IN - ER Visit Summary Date of Service: 11/17/17 Chief Complaint: Left hip injury History of Present Illness: The patient is a 82 M who is from group home who states that he was standing near a Mat tree when a very large ball came rolling towards him and hit him on the left side and he fell down to the ground. He was unable to get up. EMS notes shortening of the leg and external rotation. He is on Coumadin resumed leg due to underlying A. fib though he has paced ventricularly. Physical Examination: Afebrile vital signs are stable Gen: Well-nourished well-developed Head: Normocephalic atraumatic Eyes: Perrl EOMI ENT: TMs clear no rhinorrhea moist mucous membranes Neck: Supple no lymphadenopathy no JVD nontender CVS: Regular rate rhythm no murmurs normal S1-S2 Respiratory: No distress clear to auscultation bilaterally chest nontender Abdomen: Soft nontender nondistended normal bowel sounds no masses Back: Nontender Extremity: Left hip is tender to palpation over the greater trochanter. There is pain with motion including logroll. It is shortened and slightly externally rotated Skin: Normal color no rash Neuro: alert orientated 3 CN II-XII intact normal strength sensation reflexes gait cerebellar Psych: Normal affect normal mood Test Results: Hip x-rays confirm intertrochanteric hip fracture. Preoperative labs were obtained. INR at 2.4 Emergency Department Course and Treatment: Patient declined pain medication. Plan is admission. Dr. Slade is on for no [facility]. Impression: 1. Left intertrochanteric hip fracture 2. Coumadin coagulopathy This note was generated with SecureLink dictation software. It may contain incorrect words, spelling, and punctuation that were not noted in review of the chart prior to signing ED Disposition - Plan for ED Patient: Chief Complaint: Fall Referrals: Juan Canada Chi, MD [Primary Care Provider] - What to do if you have Problems For any increased pain, shortness of breath, bleeding, nausea or vomiting, chest pain, or any unexpected problems, contact your Primary Care Provider. Call [facility] ([phone]) or report to the closest Emergency Room. Call 911 if necessary. 11/18/17 0035 <Electronically signed by Hakan Escalona DO> Date Hakan Escalona DO Cosigner Signature (If Indicated): Date CC: Juan Canada MD CBC W/DIFF, AUTOMATED Collected: 11/17/2017 Status: F Source: [place] 8:50 PM [facility] TYPE CODE TESTS RESULT OUT OF RANGE REFERENCE UNITS LAB L100.1000 4.4-11.0 K/mm3 Normal WBC 9.2 LAB L100.1200 4.6-6.2 M/mm3 Low RBC 4.26 LAB L100.1300 13.0-16.5 g/dl Low HGB 12.8 LAB L100.1400 40-54 % Low HCT 39.7 LAB L100.1500 80-94 fL Normal MCV 93.2 LAB L100.1600 27.0-32.0 pg Normal MCH 30.0 LAB L100.1700 32-36 g/gl Normal MCHC 32.2 LAB L100.1810 11.6-14.6 % Normal RDW CV 13.7 LAB L100.1820 35.1-43.9 fl High RDW SD 46.3 LAB L100.1900 150-450 K/mm3 Normal PLT 152 LAB L100.2000 6.2-12.0 fl Normal MPV 10.2 LAB L100.2100 47-70 % High NEUT% 78.4 LAB L100.2200 19-41 % Low LY% 10.1 LAB L100.2300 0-10 % High MONO% 10.8 LAB L100.2400 0-5 % Normal EO% 0.5 LAB L100.2500 0-1 % Normal BASO% 0.1 LAB L100.2550 0.0-0.9 % Normal IM GRAN % 0.100 Result Comment: IG% - Immature Granulocytes (promyelocytes, myelocytes and metamyelocytes) > 1% indicates that a LEFT SHIFT is Present. LAB L100.2620 2.0-7.7 X10 3/uL Normal Absolute Neut 7.2 LAB L100.2720 0.83-4.51 X10 3/ul Normal Absolute Lymph 0.93 Performed By: #### L100.0100 #### [facility] [address] [place], [place], [id number] PROTHROMBIN TIME W/INR Collected: 11/17/2017 Status: F Source: [place] 8:50 PM [facility] REPOSIT[facility] TYPE CODE TESTS RESULT OUT OF RANGE REFERENCE UNITS LAB L300.4150 11.7-14.9 SECONDS High PROTIME 25.2 LAB L300.4200 Normal INR 2.4 Performed By: #### L300.3900, L300.4310 #### [facility] [address] [place], [place], [address] PARTIAL THROMBOPLAST Collected: 11/17/2017 Status: F Source: [place] TIME 8:50 PM [facility] REPOSIT[facility] TYPE CODE TESTS RESULT OUT OF RANGE REFERENCE UNITS LAB L300.4310 24.1-36.2 Seconds Normal PTT 34.3 Performed By: #### L300.3900, L300.4310 #### [facility] [address] [place], [place], [address] COMPREHENSIVE METABOLIC Collected: 11/17/2017 Status: F Source: [place] PROFIL 8:50 PM [facility] REPOSITORY TYPE CODE TESTS RESULT OUT OF RANGE REFERENCE UNITS LAB L501.0100 70-110 mg/dL High GLU 129 Result Comment: Fasting Glucose result greater than or equal to 126 mg/dL suggests DIABETES MELLITUS per A.D.A. criteria. LAB L501.1000 7-18 mg/dL Normal BUN 12 LAB L501.1100 0.70-1.30 mg/dL Normal CREAT,SERUM 0.78 Result Comment: The validity of the calculated GFR AND GFRAA in patients over 70 years has not been determined. Clinical correlation is essential. LAB L501.1110 >60 mL/min Normal EST GFR 102 Result Comment: Non- GFR Calc LAB L501.1115 >60 mL/min Normal EST GFR - AA 124 Result Comment: GFR Calc LAB L501.1255 ml/min Normal Estimated CRCL 54.17 LAB L501.1300 10-20 RATIO Normal BUN/CRE 15.5 LAB L501.1500 6.4-8. g/dL Normal 2 T PROT 7.0 LAB L501.1800 3.4-5. g/dL Normal 0 ALB 3.4 Result Comment: Please note revised Albumin AND Globulin reference range effective 2017. LAB L501.1950 2.2-4.2 g/dL Normal GLOB 3.6 LAB L501.2000 0.9-2.4 RATIO Normal A/G 0.9 LAB L501.2200 8.5-10.1 mg/dL Low CA 8.3 LAB L501.4100 15-37 U/L Normal AST 27 LAB L501.4305 45-117 U/L Normal ALK P 65 LAB L501.4405 12-78 U/L Normal ALT 21 LAB L501.4600 0.20-1.00 mg/dL Normal T BILI 0.50 LAB L501.5300 136-145 mmol/L Normal NA 138 LAB L501.5600 3.5-5.1 mmol/L Normal K 4.0 LAB L501.5900 98-107 mmol/L Normal CL 101 LAB L501.6100 21.0-32.0 mmol/L Normal CO2 32.0 LAB L501.6200 5-15 Normal GAP 5 Performed By: #### L500.4050 #### [facility] [address] [place], [place], [address] TYPE AND SCREEN Collected: 11/17/2017 Status: F Source: [place] 8:50 PM [facility] Order Comment: Reason for Type AND Screen/Red Cells: SURGERY TYPE CODE TESTS RESULT OUT OF RANGE REFERENCE UNITS LAB B10.0800 A Normal BLOOD TYPE GEL POSITIVE LAB B100.4000 Normal Antibody NEGATIVE Screen Performed By: #### B101.7450 #### [facility] [address], [place], [address] FFP Collected: 11/17/2017 Status: F Source: [place] 8:50 PM [facility] TYPE CODE TESTS RESULT OUT OF REFERENCE UNITS RANGE LAB U100.0900 [id number] TRANSFUSED PRODUCT: Fresh Frozen Plasma COUNT: 1 Performed By: #### U100.0900 #### [facility] - refer to report for specific site CHEST 1 VIEW Observed: 11/17/2017 Status: F Source: [place] (PORTABLE) 8:29 PM [facility] Imaging Services [address] [place] [address] Chest 1 View (Portable) MR#: [id number] Acct: [id number] Name: TAY ESCOBAR Rep #: [id number] : 1935 M 82 From: Abraham Ackerman PCP: Juan Canada MD, Chi Status: REG ER Study: Chest 1 View (Portable) Date of Exam: 11/17/17 Exam# [id number] Ordering Dr: Hakan Escalona DO STUDY: X-RAY CHEST REASON FOR EXAM: Male, 82 years old. Fall TECHNIQUE: Single AP portable view of the chest. COMPARISON: 09/15/2017. FINDINGS: Left-sided pacemaker. The lungs are clear and expanded. There is no demonstrated pleural abnormality. There is mild cardiac enlargement. Patient status post sternotomy. Normal mediastinum and al. Normal visualized pulmonary arteries. Normal visualized aortic arch and descending thoracic aorta. Normal visualized thoracic spine. Normal visualized ribs, clavicles, and shoulders. There is no demonstrated abnormality of the visualized soft tissue structures of the upper abdomen. RAD/Chest 1 View (Portable) IMPRESSION: No infiltrate. Stable mild cardiomegaly. Electronically Signed: Abraham Ackerman DO at 21:41 EST , Service support , CC: Hakan Escalona DO; Juan Canada MD Counterintelligence Agent: Signed HIP 2-3 VIEWS WITH Observed: 11/17/2017 Status: F Source: [place] PELVIS 8:07 PM [facility] Imaging Services [address] [place] [address] Hip 2-3 Views with Pelvis MR#: [id number] Acct: [id number] Name: TAY ESCOBAR Rep #: [id number] : 1935 M 82 From: Maykel Keating MD PCP: Juan Canada MD, Chi Status: REG ER Study: Hip 2-3 Views with Pelvis Date of Exam: 11/17/17 Exam# [id number] Ordering Dr: Hakan Escalona DO STUDY: X-RAY - PELVIS AND LEFT HIP REASON FOR EXAM: Male, 82 years old. Fall TECHNIQUE: Radiological exam, hip, unilateral, with pelvis when performed; 2 or 3 views. COMPARISON: None. FINDINGS: There is an intratrochanteric fracture of the left proximal femur. The remainder the visualized osseous structures are intact. There is no dislocation. RAD/Hip 2-3 Views with Pelvis IMPRESSION: Intertrochanteric fracture of the left proximal femur. Electronically Signed: Maykel Barnettcesarfransico, at 21:18 EST Tel , Service support , CC: Hakan Escalona DO; Juan Canada MD Counterintelligence Agent: Signed ALLERGIES ALLERGIES DATE TYPE / CODE NAME / CODE REACTION SEVERITY SOURCE 03/07/2018 Drug No Known Unknown Michelle [facility] Allergy/4160 Allergies/F00 Hospital 12004(SNOMED [id number](RXNOR Repository CT) M) ENCOUNTERS ENCOUNTERS ADMIT/DISCHARGE ACCOUNT ADMITTING ENCOUNTER LOCATION SOURCE NUMBER [facility] 11/07/2018 [id number] Ambulatory Michelle Michelle 1 [facility] Repository R 10/31/2018 [id number] Ambulatory Michelle [place] 9 [facility] Repository R 10/24/2018 [id number] Ambulatory Michelle [place] 9 [facility] Repository R 10/17/2018 [id number] Ambulatory BMSBuilding:B [place] 6 [facility] Repository 10/17/2018 [id number] Ambulatory BMSBuilding:B Michelle 5 [facility] Repository 10/17/2018 [id number] Ambulatory Michelle [place] 5 [facility] Repository R 10/14/2018 [id number] Ambulatory Michelle Michelle 8 [facility] Repository R 10/10/2018 [id number] Ambulatory Michelle [place] 9 [facility] Repository R 10/03/2018 [id number] Ambulatory Michelle [place] 7 [facility] ing[facility] Repository R 09/29/2018 [id number] Ambulatory Michelle [place] 3 [facility] ing:[facility] Repository R 09/26/2018 [id number] Ambulatory Michelle Michelle 1 [facility] ing:[facility] Repository R 09/19/2018 [id number] Ambulatory Michelle Michelle 4 [facility] Repository R 09/19/2018 [id number] Ambulatory Michelle [place] 0 [facility] ing:[facility] Repository R 09/12/2018 [id number] Ambulatory [place] Michelle 8 [facility] ing:[facility] Repository R 09/05/2018 [id number] Ambulatory [place] Michelle 8 [facility] ing:[facility] Repository R 08/29/2018 [id number] Ambulatory Michelle Michelle 9 [facility] ing:[facility] Repository R 08/22/2018 [id number] Ambulatory Michelle Michelle 2 [facility] ing:[facility] Repository R 08/15/2018 [id number] Ambulatory Michelle Michelle 2 [facility] ing:[facility] Repository R 08/08/2018 [id number] Ambulatory [place] 1 [facility] ing:[facility] Repository R 08/01/2018 [id number] Ambulatory [place] 8 [facility] ing:[facility] Repository R 07/30/2018 [id number] Ambulatory [place] 9 [facility] ing:[facility] Repository R 07/22/2018 [id number] Ambulatory [place] Michelle 8 [facility] ing:[facility] Repository R 07/18/2018 [id number] Ambulatory Michelle [place] 3 [facility] ing:[facility] Repository R 07/14/2018 [id number] Ambulatory Michelle [place] 9 [facility] ing:[facility] Repository R 07/11/2018 [id number] Ambulatory Michelle [place] 6 [facility] ing:[facility] Repository R 07/07/2018 [id number] Ambulatory [place] 7 [facility] ing:[facility] Repository R 2018 [id number] Ambulatory [place] Michelle 0 [facility] ing:[facility] Repository R 07/02/2018 [id number] Ambulatory Michelle [place] 9 [facility] ing:[facility] Repository R 06/27/2018 [id number] Ambulatory [place] Michelle 3 [facility] ing:[facility] Repository R 06/20/2018 [id number] Ambulatory Michelle Michelle 9 [facility] ing:[facility] Repository R 06/13/2018 [id number] Ambulatory Michelle [place] 1 [facility] ing:[facility] Repository R 06/06/2018 [id number] Ambulatory Michelle Michelle 4 [facility] ing:[facility] Repository R 05/31/2018 [id number] Ambulatory [place] 8 [facility] ing:[facility] Repository R 05/30/2018 [id number] Ambulatory [place] Michelle 5 [facility] ing:[facility] Repository R 05/23/2018 [id number] Ambulatory [place] 2 [facility] ing:[facility] Repository R 05/19/2018 [id number] Ambulatory Michelle [place] 5 [facility] ing:[facility] Repository R 05/16/2018 [id number] Ambulatory Michelle [place] 3 [facility] ing:[facility] Repository R 05/13/2018 [id number] Ambulatory Michelle Michelle 1 [facility] ing:[facility] Repository R 05/12/2018 [id number] Ambulatory [place] 4 [facility] ing:[facility] Repository R 05/09/2018 [id number] Ambulatory Michelle [place] 0 [facility] Repository R 04/06/2018 [id number] Ambulatory BMSBuilding:B Michelle 3 [facility] Repository 03/07/2018 [id number] Ambulatory BMSBuilding:B Michelle 8 [facility] Repository 03/07/2018/ [id number] Ambulatory BMSBuilding:B [place] 8 0 [facility] Repository 03/07/2018/ [id number] Ambulatory BMSBuilding:B [place] 8 2 [facility] Repository 03/05/2018 [id number] Ambulatory BMSBuilding:B [place] 7 [facility] Repository 12/31/2017 [id number] Ambulatory Michelle Michelle 4 [facility] ing:HPRAD Repository 12/31/2017/ [id number] Ambulatory BMSBuilding:B [place] 8 8 [facility] Repository 12/02/2017 [id number] Ambulatory Michelle Michelle 9 [facility] ing:HPRAD Repository 12/02/2017/ [id number] Ambulatory BMSBuilding:B [place] 8 5 [facility] Repository 11/17/2017/ [id number] Ruby, Inpatient Michelle [place] 7 6 Sal Encounter [facility] ing:LF3Qnox: Repository [id number]: 1 11/17/2017 [id number] Ambulatory BMSBuilding:W Michelle 1 [facility] Repository 11/17/2017 [id number] Ambulatory BMSBuilding:B [place] 8 [facility] Repository 11/17/2017 [id number] Ambulatory BMSBuilding:B [place] 3 [facility] Repository 11/17/2017 [id number] Ambulatory BMSBuilding:B [place] 6 [facility] Repository 11/17/2017 [id number] Ambulatory BMSBuilding:B Michelle 7 [facility] Repository PAYERS PAYERS ENCOUNTER GUARANTOR PAYER SUBSCRIBER SOURCE 11/07/2018 ANNA [id number] Primary NOT GIVENUNK [place] Insurance:SELF PAY [address] [address]Mmr: (330) Number: Effective Repository [phone] () Date:2018-11-07 10/31/2018 ANNA [id number] Primary NOT GIVENUNK [place] Insurance:SELF PAY [address] [address]Rms: (330) Number: Effective Repository [phone] () Date:2018-10-31 10/24/2018 Tay L Primary Tay L Michelle [id number] Insurance:PYRAMID LehmanDOB[facility] [id number], Number: [place]ository [place] [address]Kjx: 330 [id number] [phone] () Date:2018-10-24[address] [address]HSRKLGSZQ, [place] [address]HK: 10/24/2018 Secondary Thomas L Michelle Insurance:MEDICARE LehmanDOB: Community PART A [facility] [id number] Hospital Number: Repository [id number] Date:2018-10-24 10/24/2018 Tertiary NOT GIVENUNK Michelle Insurance:SELF PAY [place] Number: Effective Repository Date:2018-10-24 10/17/2018 [facility] [id number] Primary Thomas L [place] [facility] Insurance:MEDICARE LehmanDOB: [address], PART A [facility] [id number] [facility] [address]Zor: (330) Number: Repository [phone] () [id number] Date:2018-03-07 10/17/2018 Secondary Thomas L [place] Insurance:PYRAMID LehmanDOB: Community [facility] [id number] Hospital Number: Repository [id number] Date:8922-98-01KH [address] [address]GPFMUCYZZ, [place] [address]BZ: 10/17/2018 Tertiary NOT GIVENUNK [place] Insurance:SELF PAY [place] Number: Effective Repository Date:2018-03-07 10/17/2018 [facility] [id number] Primary Tay L [place] Insurance:MEDICARE LehmanDOB: [address], PART A [facility] [id number] [facility] [address]Tmg: (330) Number: Repository [phone] () [id number] Date:2018-03-07 10/17/2018 Secondary Thomas L [place] Insurance:PYRAMID LeanDOB: [facility] LIFE INS [facility] [id number] Hospital Number: Repository [id number] Date:7828-95-42[address] [address]XYLKIH[place], [place] [address]TK: 10/17/2018 Tertiary NOT GIVENUNK Michelle Insurance:SELF PAY [place] Number: Effective Repository Date:2018-03-07 10/17/2018 [facility] [id number] Primary NOT GIVENUNK [place] Insurance:SELF PAY [address] [address]Qsg: (330) Number: Effective Repository [phone] () Date:2018-10-17 10/14/2018 Thomas L Primary Tay L Michelle [id number] Insurance:PYRAMID LeanDOB: [facility] [id number], Number: [place]ository [place] [address]Geg: [phone] [id number] [phone] () Date:2018-10-14[address] [address]XJNVWYHVR, [place] [address]PH: 10/14/2018 Secondary Thomas L Michelle Insurance:MEDICARE LehmanDOB: [facility] PART A [facility] [id number] Hospital Number: Repository [id number] Date:2018-10-14 10/14/2018 Tertiary NOT GIVENUNK Michelle Insurance:SELF PAY [place] Number: Effective Repository Date:2018-10-14 10/10/2018 Tay L Primary Thomas L [place] [id number] Insurance:MEDICARE LeanDOB: [facility] PART A [facility] [id number], Number: [place]ository [place] [address]Vkr: 330 [id number] (HP) Date:2018-10-10 10/10/2018 Secondary Thomas L [place] [facility]: [facility] [id number] Hospital Number: Repository [id number] Date:2018-10-10[address] [address]EJQFRRZGU, [place] [address]NQ: 10/10/2018 Tertiary NOT GIVENUNK Michelle Insurance:SELF PAY [place] Number: Effective Repository Date:2018-10-10 10/03/2018 Tay L Primary Thomas L Michelle [id number] Insurance:MEDICARE LeanD: [facility] [id number], Number: Repository [place] [address]Wvg: 330 [id number] [phone] () Date:2018-10-03 10/03/2018 Secondary Tay L [place] Insurance:formerly [facility]: [facility] [id number] Hospital Number: Repository [id number] Date:2018-10-[address] [address]MIHDIHUGN, [place] [address]YG: 10/03/2018 Tertiary NOT GIVENUNK Michelle Insurance:SELF PAY [place] Number: Effective Repository Date:2018-10-03 09/29/2018 Tay L Primary Tay L [place] [id number] Insurance:MEDICARE LeanDOB: [facility] [id number], Number: Repository [place] [address]Tds: 330 [id number] [phone] () Date:2018-09-29 09/29/2018 Secondary Thomas L Michelle Insurance:[facility]: [facility] [id number] Hospital Number: Repository [id number] Date:2018-09-29[address] [address]ZKEDJFBJE, [place] [address]MA: 09/29/2018 Tertiary NOT GIVENUNK [place] Insurance:SELF PAY [place] Number: Effective Repository Date:2018-09-29 09/26/2018 ANNA [id number] Primary Tay L [place] Insurance:MEDICARE LehmanDOB: Community [address], PART A [facility] [id number] [facility] [address]Zul: (330) Number: Repository [phone] () [id number] Date:2018-09-26 09/26/2018 Secondary Thomas L Michelle Insurance:PYRAMID LeanDOB: [facility] LIFE [facility] [id number] Hospital Number: Repository [id number] Date:4969-33-52KV [address] [address]UAXPFSGMN, [place] [address]UK: 09/26/2018 Tertiary NOT GIVENUNK Michelle Insurance:SELF PAY [place] Number: Effective Repository Date:2018-09-26 09/19/2018 [facility] [id number] Primary Tay L Michelle [place] Insurance:MEDICARE LehmanDOB: [address], PART A [facility] [id number] [facility] [address]Ajg: (330) Number: Repository [phone] () [id number] Date:2018-09-19 09/19/2018 Secondary Thomas L Michelle Insurance:PYRAMID LeanDOB: [facility] [id number] Hospital Number: Repository [id number] Date:9165-25-89JQ [address] [address]ARGKPFCJR, [place] [address]NU: 09/19/2018 Tertiary NOT GIVENUNK Michelle Insurance:SELF PAY [place] Number: Effective Repository Date:2018-09-19 09/19/2018 Tay L Primary Tay L [place] [id number] Insurance:MEDICARE LehmanDOB: Community [place] PART A [facility] [id number], Number: [place] [address]Tey: 330 [id number] [phone] () Date:2018-09-19 09/19/2018 Secondary Thomas L Michelle Insurance:PYRAMID LehmanDOB: [facility] LIFE [facility] [id number] Hospital Number: Repository [id number] Date:8789-33-25WD [address] [address]QNCQVGWUJ, [place] [address]WO: 09/19/2018 Tertiary NOT GIVENUNK [place] Insurance:SELF PAY [facility] Number: Effective Repository Date:2018-09-19 09/12/2018 [facility] [id number] Primary Thomas L [place] Insurance:MEDICARE LehmanDOB: [place] [address], PART A [facility] [id number] [facility] [address]Xzi: (330) Number: Repository [phone] () [id number] Date:2018-09-12 09/12/2018 Secondary Thomas L [place] Insurance:PYRAMID LeanDOB: [facility] [id number] Hospital Number: Repository [id number] Date:5064-10-50FJ [address] [address]FAIWZNPDC [place] [address]XW: 09/12/2018 Tertiary NOT GIVENUNK Michelle Insurance:SELF PAY [facility] Number: Effective Repository Date:2018-09-12 09/05/2018 [facility] [id number] Primary Thomas L Michelle [place] Insurance:MEDICARE LehmanDOB: Community [address], PART A [facility] [id number] [facility] [address]Riu: (330) Number: Repository [phone] () [id number] Date:2018-09-05 09/05/2018 Secondary Thomas L Michelle Insurance:PYRAMID LehmanDOB: [facility] LIFE [facility] [id number] Hospital Number: Repository [id number] Date:8371-19-52SI [address] [address]QPIDZXGOW [place] [address]DG: 09/05/2018 Tertiary NOT GIVENUNK [place] Insurance:SELF PAY [facility] Number: Effective Repository Date:2018-09-05 08/29/2018 Thomas L Primary Tay L [place] [id number] Insurance:MEDICARE LehmanDOB: Community [place] PART A BPolicy [id number], Number: Repository [place] [address]Nlb: 330 [id number] [phone] () Date:2018-08-29 08/29/2018 Secondary Thomas L Michelle Insurance:PYRAMID LeAscension St[facility] Luke's Sleep CenterOB: [facility] [id number] Hospital Number: Repository [id number] Date:3729-87-76JH [address] [address]FYJELJKPY, [place] [address]LF: 08/29/2018 Tertiary NOT GIVENUNK Michelle Insurance:SELF PAY [place] Number: Effective Repository Date:2018-08-29 08/22/2018 Thomas L Primary Tay L [place] [id number] Insurance:MEDICARE LeanDOB: [facility] [id number] [facility] Hospital [place], Number: [place]ository [place] [address]Zxn: 330 [id number] [phone] () Date:2018-08-22 08/22/2018 Secondary Thomas L [place] Insurance:PYRAMID LeAscension St. Luke's Sleep CenterOB: [facility] [id number] Hospital Number: Repository [id number] Date:3975-24-86NF [address] [address]WSMYZALHW, [place] [address]CD: 08/22/2018 Tertiary NOT GIVENUNK [place] Insurance:SELF PAY [place] Number: Effective Repository Date:2018-08-22 08/15/2018 Thomas L Primary Thomas L Michelle [id number] Insurance:MEDICARE LehmanDOB: [facility] [id number] Cancer CenterUN [facility], Number: Repository [place] [address]Ihv: 330 [id number] [phone] () Date:2018-08-15 08/15/2018 Secondary Thomas L [place] Insurance:PYRAMID LeAscension St. Luke's Sleep CenterOB: [facility] [id number] Hospital Number: Repository [id number] Date:5532-72-98TH [address] [address]SEKMDLTXP, [place] [address]LW: 08/15/2018 Tertiary NOT GIVENUNK Michelle Insurance:SELF PAY [place] Number: Effective Repository Date:2018-08-15 08/08/2018 ANNA [id number] Primary Thomas L [place] Insurance:MEDICARE LehmanDOB: Community [facility] [place], PART A [facility] [id number] Hospital [place] [address]Yht: (330) Number: Repository [phone] () [id number] Date:2018-08-08 08/08/2018 Secondary Tay L [place] Insurance:PYRAMID LeanDOB: Community LIFE INS COPolicy [id number] Hospital Number: Repository [id number] Date:9028-35-07[facility] [address]TAEKCULV, [place] [address]SA: 08/08/2018 Tertiary NOT GIVENUNK Michelle Insurance:SELF PAY [place] Number: Effective Repository Date:2018-08-08 08/01/2018 Thomas L Primary Thomas L [place] [id number] Insurance:MEDICARE LehmanDOB: Community [place] PART A [facility] [id number], Number: [place]ository [place] [address]Icz: 330 [id number] [phone] () Date:2018-08-01 08/01/2018 Secondary Thomas L [place] Insurance:PYRAMID LeanDOB: [facility] [id number] Hospital Number: Repository [id number] Date:8937-57-42GS [address] [address]QG: 08/01/2018 Tertiary NOT GIVENUNK [place] Insurance:SELF PAY [place] Number: Effective Repository Date:2018-08-01 07/30/2018 ANNA [id number] Primary Thomas L Michelle [place] Insurance:MEDICARE LehmanDOB: Community [address], PART A [facility] [id number] Hospital [place] [address]Jkz: (330) Number: Repository [phone] () [id number] Date:2018-07-30 07/30/2018 Secondary Thomas L [place] Insurance:PYRAMID [facility]: [facility] [id number] Hospital Number: Repository [id number] Date:3695-59-47DY [address] [address]UREKYEZLJ, [place] [address]PF: 07/30/2018 Tertiary NOT GIVENUNK Michelle Insurance:SELF PAY [place] Number: Effective Repository Date:2018-07-30 07/22/2018 Thomas L Primary Tay L Michelle [id number] Insurance:MEDICARE LeanDOB: [id number] [place], Number: [place]ository [place] [address]Hdi: 330 [id number] [phone] () Date:2018-07-22 07/22/2018 Secondary Tay L [place] Insurance:PYRAMID [facility] Number: [id number] Hospital [id number] Repository Date:7804-55-80MW [address] [address]NUOEXHLVT, [place] [address]WE: 07/22/2018 Tertiary NOT GIVENUNK Michelle Insurance:SELF PAY [place] Number: Effective Repository Date:2018-07-22 07/18/2018 Thomas L Primary Thomas L Uval[place] [id number] Insurance:MEDICARE LeanDOB: [facility] [id number], Number: [place]ository [place] [address]Ube: 330 [id number] [phone] () Date:2018-07-18 07/18/2018 Secondary Thomas L [place] Insurance:PYRAMID [facility]: [facility] [id number] Hospital Number: Repository [id number] Date:9954-68-18SO [address] [address]JCOOECXDA, [place] [address]BX: 07/18/2018 Tertiary NOT GIVENUNK Michelle Insurance:SELF PAY [place] Number: Effective Repository Date:2018-07-18 07/14/2018 Thomas L Primary Thomas L U[place] [id number] Insurance:MEDICARE LeanDOB: [facility] PART A [facility] [id number], Number: Repository [place] [address]Xfv: 330 [id number] [phone] () Date:2018-07-14 07/14/2018 Secondary Thomas L [place] [facility]: [facility] [id number] Hospital Number: Repository [id number] Date:4153-42-76CH [address] [address]NQRUXMIHK, [place] [address]HA: 07/14/2018 Tertiary NOT GIVENUNK [place] Insurance:SELF PAY [place] Number: Effective Repository Date:2018-07-14 07/11/2018 Thomas L Primary Thomas L U[place] [id number] Insurance:MEDICARE LeanDOB: [facility] A [facility] [id number], Number: [place]ository [place] [address]Qki: 330 [id number] [phone] () Date:2018-07-11 07/11/2018 Secondary Thomas L U[place] Insurance:formerly [facility]: [facility] [id number] Hospital Number: Repository [id number] Date:9899-21-38CW [address] [address]UHROKXGXR, [place] [address]ST: 07/11/2018 Tertiary NOT GIVENUNK Michelle Insurance:SELF PAY [place] Number: Effective Repository Date:2018-07-11 07/07/2018 ANNA [id number] Primary Thomas L Michelle [place] Insurance:MEDICARE LeanDOB: [address] PART A [facility] [id number] [facility] [address]Duj: (330) Number: Repository [phone] () [id number] Date:2018-07-07 07/07/2018 Secondary Thomas L Michelle Insurance:[facility]: [facility] Number: [id number] Hospital [id number] Repository Date:0287-08-58YF [address] [address]HESUKMAEC, [place] [address]IV: 07/07/2018 Tertiary NOT GIVENUNK [place] Insurance:SELF PAY [place] Number: Effective Repository Date:2018-07-07 2018 [facility] [id number] Primary Thomas L [place] Insurance:MEDICARE LeanDOB: [facility] [address], PART A [facility] [id number] [facility] [address]Ndr: (330) Number: Repository [phone] () [id number] Date:2018 2018 Secondary Tay L [place] Insurance:PYRAMID LeanDOB: Community LIFE INS [place].Policy [id number] Hospital Number: Repository [id number] Date:1561-11-26MV [address] [address]ZXLQPBRNQ, [place] [address]AY: 2018 Tertiary NOT GIVENUNK Michelle Insurance:SELF PAY [place] Number: Effective Repository Date:2018 07/02/2018 [facility] [id number] Primary Thomas L [place] Insurance:MEDICARE LehmanDOB: [facility] [address], PART A [facility] [id number] [facility] [address]Ply: (330) Number: Repository [phone] () [id number] Date:2018-07-02 07/02/2018 Secondary Thomas L Michelle Insurance:PYRAMID LeanDOB: Community LIFE INS COPolicy [id number] Hospital Number: Repository [id number] Date:6859-24-06OF [address] [address]ZXINDXEB, [place] [address]EH: 07/02/2018 Tertiary NOT GIVENUNK [place] Insurance:SELF PAY [facility] Number: Effective Repository Date:2018-07-02 06/27/2018 [facility] [id number] Primary Thomas L U[place] Insurance:MEDICARE LeanDOB: [facility] [address] PART A [facility] [id number] [facility] [address]Bra: (330) Number: Repository [phone] () [id number] Date:2018-06-27 06/27/2018 Secondary Tay L [place] Insurance:PYRAMID LehmanDOB: Community LIFE INSPolicy [id number] Hospital Number: Repository [id number] Date:2387-47-53HY [address] [address]OZJYWOVCG, [place] [address]ZT: 06/27/2018 Tertiary NOT GIVENUNK [place] Insurance:SELF PAY [facility] Number: Effective Repository Date:2018-06-27 06/20/2018 [facility] [place] Insurance:MEDICARE LehmanDOB: [facility] [address] PART A [facility] [id number] [facility] [address]Equ: (330) Number: Repository [phone] () [id number] Date:2018-06-20 06/20/2018 Secondary Thomas L Michelle Insurance:PYRAMID [facility] CenterOB: Community LIFE INS [place].Policy [id number] Hospital Number: Repository [id number] Date:9038-59-59BX [address] [address]CCPOBSINZ, [place] [address]TZ: 06/20/2018 Tertiary NOT GIVENUNK [place] Insurance:SELF PAY [facility] Number: Effective Repository Date:2018-06-20 06/13/2018 [id number] Primary Thomas L Michelle [place] Insurance:MEDICARE LehmanDOB: [facility] [address], PART A [facility] [id number] [facility] [address]Cpn: (330) Number: Repository [phone] () [id number] Date:2018-06-13 06/13/2018 Secondary Thomas L Michelle Insurance:PYRAMID LehmanDOB: Community LIFE INS COPolicy [id number] Hospital Number: Repository [id number] Date:5680-67-26HI [address] [address]NVVLXPFO, [place] [address]BX: 06/13/2018 Tertiary NOT GIVENUNK [place] Insurance:SELF PAY [facility] Number: Effective Repository Date:2018-06-13 06/06/2018 Thomas L Primary Thomas L Michelle [id number] Insurance:MEDICARE LeanDOB: [facility] PART A [facility] [id number], Number: [place]ository [place] [address]Ohv: 330 [id number] [phone] () Date:2018-06-06 06/06/2018 Secondary Tay L Michelle Insurance:PYRAMID LehmanDOB: Community LIFE INSPolicy [id number] Hospital Number: Repository [id number] Date:2026-13-92SL [address] [address]ZUXRREUAE, [place] [address]NE: 06/06/2018 Tertiary NOT GIVENUNK Michelle Insurance:SELF PAY [place] Number: Effective Repository Date:2018-06-06 05/31/2018 ANNA [id number] Primary Thomas L Uvalde [facility] Insurance:MEDICARE [facility]Asc[facility] Sleep CenterOB: [address] PART A [facility] [id number] [facility] [address]Pgb: 330) Number: Repository [phone] () [id number] Date:2018-05-31 05/31/2018 Secondary Thomas L Michelle Insurance:PYRAMID LeanDOB: Community [facility] [id number] Hospital Number: Repository [id number] Date:3852-15-43OU [address] [address]YFGWLTBBJ, [place] [address]NZ: 05/31/2018 Tertiary NOT GIVENUNK Michelle Insurance:SELF PAY [place] Number: Effective Repository Date:2018-05-31 05/30/2018 Thomas L Primary Tay L Michelle [id number] Insurance:MEDICARE LeanDOB: [facility] PART [facility] [id number], Number: [place]ository [place] [address]Nld: (853) [id number] [phone] () Date:2018-05-30 05/30/2018 Secondary Thomas L Michelle Insurance:PYRAMID LehmanDOB: Community LIFE INS [facility] [id number] Hospital Number: Repository [id number] Date:1743-40-78KL [address] [address]RLUTWVPQS [place] [address]WZ: 05/30/2018 Tertiary NOT GIVENUNK [place] Insurance:SELF PAY [place] Number: Effective Repository Date:2018-05-30 05/23/2018 [facility] [id number] Primary Tay L Michelle [place] Insurance:MEDICARE LeanDOB: [facility] [address] PART A [facility] [id number] Hospital [place] [address]Xwv: (330) Number: Repository [phone] () [id number] Date:2018-05-23 05/23/2018 Secondary NOT GIVENUNK [place] Insurance:SELF PAY [place] Number: Effective Repository Date:2018-05-23 05/19/2018 [facility] [id number] Primary Tay L Michelle [place] Insurance:MEDICARE LeanDOB: [facility] [address] PART A [facility] [id number] [facility] [address]Bor: (330) Number: Repository [phone] () [id number] Date:2018-05-19 05/19/2018 Secondary Thomas L [place] Insurance:PYRAMID LeanDOB: Community [facility] INS [facility] [id number] Hospital Number: Repository [id number] Date:7946-69-67ZZ [address] [address]LLVLRVEGV [place] [address]NB: 05/19/2018 Tertiary NOT GIVENUNK Michelle Insurance:SELF PAY [place] Number: Effective Repository Date:2018-05-19 05/16/2018 [facility] L [place] Insurance:MEDICARE LehmanDOB: [facility] [address] PART A [facility] [id number] [place] [address]Qoa: (330) Number: Repository [phone] () [id number] Date:2018-05-16 05/16/2018 Secondary Tay L [place] Insurance:PYRAMID LehmanDOB: Community [facility] INS [facility] [id number] Hospital Number: Repository [id number] Date:1635-06-00QB [address] [address]ANYZSZHFG, [place] [address]YJ: 05/16/2018 Tertiary NOT GIVENUNK Michelle Insurance:SELF PAY [facility] Number: Effective Repository Date:2018-05-16 05/13/2018 [facility] [id number] Primary Thomas L [place] Insurance:MEDICARE LehmanDOB: [facility] [address] PART A olicy [id number] [facility] [address]Ptg: (330) Number: Repository [phone] () [id number] Date:2018-05-13 05/13/2018 Secondary Tay L Michelle Insurance:PYRAMID LeanDOB: [facility] [id number] Hospital Number: Repository [id number] Date:4764-43-16XW [address] [address]LHEMMZLKU, [place] [address]VY: 05/13/2018 Tertiary NOT GIVENUNK [place] Insurance:SELF PAY [facility] Number: Effective Repository Date:2018-05-13 05/12/2018 [facility] [id number] Primary Thomas L U[place] Insurance:MEDICARE LehmanDOB: [place] [address], PART A olicy [id number] [facility] [address]Txx: (330) Number: Repository [phone] () [id number] Date:2018-05-12 05/12/2018 Secondary Thomas L [place] Insurance:PYRAMID LehmanDOB: Community LIFE INS [facility] [id number] Hospital Number: Repository [id number] Date:4323-99-91ZJ [address] [address]LKBNIZCRT, [place] [address]CZ: 05/12/2018 Tertiary NOT GIVENUNK [place] Insurance:SELF PAY [facility] Number: Effective Repository Date:2018-05-12 05/09/2018 [facility] [id number] Primary Thomas L Michelle [place] Insurance:MEDICARE LehmanDOB: [place] [address] PART A [facility] [id number] [facility] [address]Yyl: (330) Number: Repository [phone] () [id number] Date:2018-05-09 05/09/2018 Secondary Tay L [place] Insurance:PYRAMID LehmanDOB: Community [facility] [id number] Hospital Number: Repository [id number] Date:4132-08-19UO [address] [address]ZPDAYYZDHJM PATEL [address]TB: 05/09/2018 Tertiary NOT GIVENUNK Michelle Insurance:SELF PAY [place] Number: Effective Repository Date:2018-05-09 04/06/2018 ANNA [id number] Primary TAY L Michelle [place] Insurance:MEDICARE LEHMANDOB: [address], PART A [facility] [id number] [facility] [address]Pch: (330) Number: Repository [phone] () [id number] Date:2017-12-31 04/06/2018 Secondary TAY L Michelle Insurance:PYRAMID LEHMANDOB: Community [facility] INS [facility] [id number] Hospital Number: Repository [id number] Date:4994-06-17XG [address] [address]ZW: 04/06/2018 Tertiary NOT GIVENUNK [place] Insurance:SELF PAY [place] Number: Effective Repository Date:2017-12-31 03/07/2018 Thomas L Primary Thomas L U[place] [id number] Insurance:PYRAMID LehmanDOB: Community [place] LIFE INS [facility] [id number], Number: [place] [address]Lmx: 330 [id number] [phone] () Date:0646-41-19UB [address] [address]ATBTVEQNE, [place] [address]NI: 03/07/2018 Secondary Thomas L [place] Insurance:MEDICARE LeanDOB: Community PART A [facility] [id number] Hospital Number: Repository [id number] Date:2017-11-01 03/07/2018 Tertiary NOT GIVENUNK Michelle Insurance:SELF PAY [place] Number: Effective Repository Date:2017-11-01 03/07/2018 [facility] [id number] Primary TAY L Michelle [place] Insurance:MEDICARE LEHMANDOB: [facility] [address], PART A olicy [id number] [facility] [address]Atl: (330) Number: Repository [phone] () [id number] Date:2018-01-21 03/07/2018 Secondary TAY L [place] Insurance:PYRAMID LEANDOB: Community LIFE INS COPolicy [id number] Hospital Number: Repository [id number] Date:3546-27-95HR [address] [address]GEXMMNPOA, [place] [address]QO: 03/07/2018 Tertiary NOT GIVENUNK Michelle Insurance:SELF PAY [facility] Number: Effective Repository Date:2018-03-07 03/07/2018 [facility] [id number] Primary TAY L [place] Insurance:MEDICARE LEHMANDOB: [facility] [address], PART A [facility] [id number] [facility] [address]Ypg: (330) Number: Repository [phone] () [id number] Date:2017-11-01 03/07/2018 Secondary TAY L Michelle Insurance:PYRAMID LEHMANDOB: Community [facility] [id number] Hospital Number: Repository [id number] Date:6064-90-08LB [address] [address]RAICXJXYH, [place] [address]DP: 03/07/2018 Tertiary NOT GIVENUNK [place] Insurance:SELF PAY [place] Number: Effective Repository Date:2018-03-07 03/05/2018 [facility] [id number] Primary TAY L [place] Insurance:MEDICARE LEHMANDOB: [facility] [address], PART A [facility] [id number] Hospital [place] [address]Lak: (330) Number: Repository [phone] () [id number] Date:2018-03-05 03/05/2018 Secondary TAY L Michelle Insurance:PYRAMID LEHMANDOB: Community [facility] [id number] Hospital Number: Repository [id number] Date:0917-17-84WF [address] [address]TLXGVPNWK, [place] [address]HK: 03/05/2018 Tertiary NOT GIVENUNK [place] Insurance:SELF PAY [facility] Number: Effective Repository Date:2018-03-05 12/31/2017 [facility] [id number] Primary TAY L [place] Insurance:MEDICARE LEHMANDOB: [place] [address], PART A [facility] [id number] [facility] [address]Gor: (330) Number: Repository [phone] () [id number] Date:2017-12-31 12/31/2017 Secondary TAY L [place] Insurance:PYRAMID LEANDOB: Community [facility] [id number] Hospital Number: Repository [id number] Date:1576-41-47JL [address] [address]VEODTPOTK, [place] [address]TQ: 12/31/2017 Tertiary NOT GIVENUNK Michelle Insurance:SELF PAY [facility] Number: Effective Repository Date:2017-12-31 12/31/2017 [facility] [id number] Primary TAY L Michelle [place] Insurance:MEDICARE LEHMANDOB: [place] [address], PART A [facility] [id number] [facility] [address]Zce: (330) Number: Repository [phone] () [id number] Date:2017-12-07 12/31/2017 Secondary TAY L Michelle Insurance:PYRAMID LEANDOB: Community [facility] [id number] Hospital Number: Repository [id number] Date:2655-90-36RQ [address] [address]OZYSPFNSA, [place] [address]VM: 12/31/2017 Tertiary NOT GIVENUNK Michelle Insurance:SELF PAY [facility] Number: Effective Repository Date:2017-12-07 12/02/2017 [facility] [id number] Primary TAY L [place] Insurance:MEDICARE LEHMANDOB: Community [address] PART A [facility] [id number] [facility] [address]Igs: (330) Number: Repository [phone] () [id number] Date:2017-12-02 12/02/2017 Secondary TAY L [place] Insurance:PYRAMID LEANDOB: Community LIFE INS [facility] [id number] Hospital Number: Repository [id number] Date:2027-09-43TW [address] [address]NGNMQIIHR, [place] [address]LI: 12/02/2017 Tertiary NOT GIVENUNK [place] Insurance:SELF PAY [place] Number: Effective Repository Date:2017-12-02 12/02/2017 ANNA [id number] Primary TAY L Michelle [place] Insurance:MEDICARE LEHMANDOB: [address], PART A [facility] [id number] [facility] [address]Aug: (330) Number: Repository [phone] () [id number] Date:2017-11-24 12/02/2017 Secondary TAY L [place] Insurance:PYRAMID LEANDOB: [facility] LIFE INS [facility] [id number] Hospital Number: Repository [id number] Date:9963-69-20EC [address] [address]DLTHVLRGD, [place] [address]VI: 12/02/2017 Tertiary NOT GIVENUNK Michelle Insurance:SELF PAY [facility] Number: Effective Repository Date:2017-11-24 11/17/2017 Tay L Primary Tay L [place] [id number] Insurance:MEDICARE LehmanDOB: Community [place] PART A [facility] [id number] House Health CenterUn[address], Number: Repository [place] [address]Bao: 330 [id number] [phone] () Date:2017-11-17 11/17/2017 Secondary Thomas L [place] Insurance:PYRAMID LehmanDOB: Community [facility] [id number] Hospital Number: Repository [id number] Date:6651-60-90QW [address] [address]MPYFKPOTP, [place] [address]CV: 11/17/2017 Tertiary NOT GIVENUNK Michelle Insurance:SELF PAY [place] Number: Effective Repository Date:2017-11-17 11/17/2017 Thomas L Primary Tay L [place] [id number] Insurance:MEDICARE LehmanDOB: [facility] A [facility] [id number], Number: [place]ository [place] [address]Srz: 330 [id number] [phone] () Date:2017-11-17 11/17/2017 Secondary Tay L [place] Insurance:PYRAMID LeAsc[facility] Sleep CenterOB: [facility] LIFE [facility] [id number] Hospital Number: Repository [id number] Date:8964-41-84QA [address] [address]NMVQWGFNL, [place] [address]CP: 11/17/2017 Tertiary NOT GIVENUNK [place] Insurance:SELF PAY [place] Number: Effective Repository Date:2017-11-17 11/17/2017 Tay L Primary Thomas L Michelle [id number] Insurance:MEDICARE LehmanDOB: [facility] [id number], Number: [place]ository [place] [address]Npf: 330 [id number] [phone] () Date:2017-11-17 11/17/2017 Secondary Thomas L [place] Insurance:PYRAMID LeAsc[facility] Luke's Sleep CenterOB: [facility] [id number] Hospital Number: Repository [id number] Date:5733-16-69ET [address] [address]REOPPXQGJ, [place] [address]AZ: 11/17/2017 Tertiary NOT GIVENUNK Michelle Insurance:SELF PAY [place] Number: Effective Repository Date:2017-11-17 11/17/2017 Thomas L Primary Tay L Michelle [id number] Insurance:MEDICARE LehmanDOB: [facility] A [facility] [id number], Number: [place]ository [place] [address]Wja: 330 [id number] [phone] () Date:2017-11-17 11/17/2017 Secondary Tay L [place] Insurance:PYRAMID LeanDOB: [facility] LIFE [facility] [id number] Hospital Number: Repository [id number] Date:5760-26-24EX [address] [address]IDYBWVXCU, [place] [address]QL: 11/17/2017 Tertiary NOT GIVENUNK [place] Insurance:SELF PAY [place] Number: Effective Repository Date:2017-11-17 11/17/2017 Thomas L Primary Thomas L [place] [id number] Insurance:MEDICARE LeAsc[facility] Sleep CenterOB: [facility] [id number], Number: [place]ository [place] [address]Sco: 330 [id number] [phone] () Date:2017-11-17 11/17/2017 Secondary Tay L Michelle Insurance:PYRAMID [facility] [id number] Hospital Number: Repository [id number] Date:9118-16-76KE [address] [address]KPNUTVGXD, [place] [address]NC: 11/17/2017 Tertiary NOT GIVENUNK [place] Insurance:SELF PAY [place] Number: Effective Repository Date:2017-11-17 11/17/2017 Tay L Primary Thomas L [place] [id number] Insurance:MEDICARE LehmanDOB: [facility] [id number], Number: [place]ository [place] [address]Qub: 330 [id number] [phone] () Date:2017-11-17 11/17/2017 Secondary Thomas L [place] Insurance:PYRAMID [facility]: [facility] [id number] Hospital Number: Repository [id number] Date:6397-46-22TR [address] [address]ULJUTGKKP, [place] [address]HD: 11/17/2017 Tertiary NOT GIVENUNK [place] Insurance:SELF PAY [place] Number: Effective Repository Date:2017-11-17
== END ==
LOC: OLS.WHLCAR 04:00
PROVIDERS: Visit Provider Family Medicine
DX: D64.9 Anemia, unspecified (principal); F03.90 Unspecified dementia, unspecified severity, without behavioral disturbance, psychotic disturbance, mood disturbance, and anxiety; E78.5 Hyperlipidemia, unspecified; Z79.01 Long term (current) use of anticoagulants
CPT/HCPCS: 36415; 80061; 80164; 85610

== ENCOUNTER → 2018-10-31 04:00 | Outpatient (REF) | payer MEDICARE, OTHER, SELFPAY ==
[2018-10-31 09:01] LABS: Prothrombin Time (Protime)PT. 37.8 SECONDS (11.7-14.9)
[2018-10-31 09:08] LABS: International Normalized Ratio 3.8
== END ==
LOC: OLS.WHLCAR 04:00
PROVIDERS: Visit Provider Family Medicine
DX: D64.9 Anemia, unspecified (principal); E78.5 Hyperlipidemia, unspecified; F03.90 Unspecified dementia, unspecified severity, without behavioral disturbance, psychotic disturbance, mood disturbance, and anxiety; Z79.01 Long term (current) use of anticoagulants
CPT/HCPCS: 36415; 85610

== ENCOUNTER → 2018-11-07 05:43 | Outpatient (REF) | payer MEDICARE, OTHER, SELFPAY ==
[2018-11-07 08:55] LABS: International Normalized Ratio 1.9
--- OUTSIDE RECORDS SUMMARY | 2019-02-08 19:33 | XMS RPT_ITS ---
:1935 Author Organization OHIP Support Name Relationship Address Phone Anna Escobar Unavailable [address] + [address] [place] [address] R Unavailable Unavailable Unavailable Nani Foster Unavailable [address] + [place] [address] Sony Escobarila Unavailable [address] + [address] [place] [address] R Unavailable Unavailable Unavailable Nani Foster Unavailable [address] + [place] [address] Shawn Anna Unavailable [address] + [address] [place] [address] R Unavailable Unavailable Unavailable KristinBhavik bentleyia Unavailable [address] + [place] [address] Shawn Anna Unavailable [address] + [address] [place] [address] R Unavailable Unavailable Unavailable Bhavik Fosteria Unavailable [address] + [place] [address] Shawn Anna Unavailable [address] + [address] [place] [address] R Unavailable Unavailable Unavailable Kristin, Nani Unavailable [address] + [place] [address] Shawn Anna Unavailable [address] + [address] [place] [address] R Unavailable Unavailable Unavailable KristinBhavik bentleyia Unavailable [address] + [place] [address] Shawn Anna Unavailable [address] + [address] [place] [address] R Unavailable Unavailable Unavailable Kristin, Nani Unavailable [address] + [place] [address] ShawnSony westonila Unavailable [address] + [address] [place] [address] R Unavailable Unavailable Unavailable Kristin, Nani Unavailable [address] + [place] [address] ShawnSonyAnna Unavailable [address] + [address] [place] [address] R Unavailable Unavailable Unavailable Kristin, Nani Unavailable [address] + [place] [address] ShawnSony westonila Unavailable [address] + [address] [place] [address] R Unavailable Unavailable Unavailable Kristin, Nani Unavailable [address] + [place] [address] ShawnSony westonila Unavailable [address] + [address] [place] [address] R Unavailable Unavailable Unavailable Kristin, Nani Unavailable [address] + [place] [address] ShawnSony westonila Unavailable [address] + [address] [place] [address] R Unavailable Unavailable Unavailable Kristin, Nani Unavailable [address] + [place] [address] Sony Escobarila Unavailable [address] + [address] [place] [address] R Unavailable Unavailable Unavailable Kristin, Nani Unavailable [address] + [place] [address] Shawn Anna Unavailable [address] + [address] [place] [address] R Unavailable Unavailable Unavailable Kristin, Nain Unavailable [address] + [place] [address] Shawn, Anna Unavailable [address] + [address] [place] [address] R Unavailable Unavailable Unavailable KristinNani bentley Unavailable [address] + [place] [address] Shawn, Anna Unavailable [address] + [address] [place] [address] R Unavailable Unavailable Unavailable KristinBhavik bentleyia Unavailable [address] + [place] [address] Shawn, Anna Unavailable [address] + [address] [place] [address] R Unavailable Unavailable Unavailable KristinBhavik bentleyia Unavailable [address] + [place] [address] Shawn, Nana Unavailable [address] + [address] [place] [address] R Unavailable Unavailable Unavailable KristinBhavik bentleyia Unavailable [address] + [place] [address] Shawn, Anna Unavailable [address] + [address] [place] [address] R Unavailable Unavailable Unavailable KristinBhavik bentleyia Unavailable [address] + [place] [address] Shawn, Anna Unavailable [address] + [address] [place] [address] R Unavailable Unavailable Unavailable Nani Foster Unavailable [address] + [place] [address] Shawn, Anna Unavailable [address] + [address] [place] [address] R Unavailable Unavailable Unavailable KristinNani bentley Unavailable [address] + [place] [address] Shawn, Anna Unavailable [address] + [address] [place] [address] R Unavailable Unavailable Unavailable KristinNani bentley Unavailable [address] + [place] [address] Shawn, Anna Unavailable [address] + [address] [place] [address] R Unavailable Unavailable Unavailable KristinBhavik bentleyia Unavailable [address] + [place] [address] Shawn, Anna Unavailable [address] + [address] [place] [address] R Unavailable Unavailable Unavailable KristinNani bentley Unavailable [address] + [place] [address] Shawn, Anna Unavailable [address] + [address] [place] [address] R Unavailable Unavailable Unavailable KristinNani bentley Unavailable [address] + [place] [address] Shawn, Anna Unavailable [address] + [address] [place] [address] R Unavailable Unavailable Unavailable Nani Foster Unavailable [address] + [place] [address] Shawn, Anna Unavailable [address] + [address] [place] [address] R Unavailable Unavailable Unavailable Nani Foster Unavailable [address] + [place] [address] Shawn, Anna Unavailable [address] + [address] [place] [address] R Unavailable Unavailable Unavailable Nani Foster Unavailable [address] + [place] [address] Shawn, Anna Unavailable [address] + [address] [place] [address] R Unavailable Unavailable Unavailable Nani Foster Unavailable [address] + [place] [address] Shawn, Anna Unavailable [address] + [address] [place] [address] R Unavailable Unavailable Unavailable Nani Foster Unavailable [address] + [place] [address] Shawn, Anna Unavailable [address] + [address] [place] [address] R Unavailable Unavailable Unavailable Nani Foster Unavailable [address] + [place] [address] Shawn, Anna Unavailable [address] + [address] [place] [address] R Unavailable Unavailable Unavailable Kristin, Nani Unavailable [address] + [place] [address] ShawnSony westonila Unavailable [address] + [address] [place] [address] R Unavailable Unavailable Unavailable Kristin, Nani Unavailable [address] + [place] [address] ShawnSonyAnna Unavailable [address] + [address] [place] [address] R Unavailable Unavailable Unavailable Kristin, Nani Unavailable [address] + [place] [address] ShawnSony westonila Unavailable [address] + [address] [place] [address] R Unavailable Unavailable Unavailable Kristin, Nani Unavailable [address] + [place] [address] ShawnSony westonila Unavailable [address] + [address] [place] [address] R Unavailable Unavailable Unavailable Kristin, Nani Unavailable [address] + [place] [address] ShawnSony westonila Unavailable [address] + [address] [place] [address] R Unavailable Unavailable Unavailable Kristin, Nani Unavailable [address] + [place] [address] Sony Escobarila Unavailable [address] + [address] [place] [address] R Unavailable Unavailable Unavailable Kristin, Nani Unavailable [address] + [place] [address] Shawn Anna Unavailable [address] + [address] [place] [address] R Unavailable Unavailable Unavailable Kristin, Nani Unavailable [address] + [place] [address] Shawn, Anna Unavailable [address] + [address] [place] [address] R Unavailable Unavailable Unavailable KristinNani bentley Unavailable [address] + [place] [address] Shwan, Anna Unavailable [address] + [address] [place] [address] R Unavailable Unavailable Unavailable KristinBhavik bentleyia Unavailable [address] + [place] [address] Shawn, Anna Unavailable [address] + [address] [place] [address] R Unavailable Unavailable Unavailable KristinBhavik bentleyia Unavailable [address] + [place] [address] SHAWN, ANNA Unavailable [address] + [address] [place] [address] R Unavailable Unavailable Unavailable KRISTINBHAVIK BENTLEYIA Unavailable [address] + [place] [address] SHAWN, ANNA Unavailable [address] + [address] [place] [address] R Unavailable Unavailable Unavailable KRISTINBHAVIK BENTLEYIA Unavailable [address] + [place] [address] SHAWN, ANNA Unavailable [address] + [address] [place] [address] R Unavailable Unavailable Unavailable NANI FOSTER Unavailable [address] + [place] [address] SHAWN, ANNA Unavailable [address] + [address] [place] [address] R Unavailable Unavailable Unavailable KRISTINNANI BENTLEY Unavailable [address] + [place] [address] SHAWN, ANNA Unavailable [address] + [address] [place] [address] R Unavailable Unavailable Unavailable KRISTINNANI BENTLEY Unavailable [address] + [place] [address] Shawn, Anna Unavailable [address] + [address] [place] [address] R Unavailable Unavailable Unavailable KristinBhavik bentleyia Unavailable [address] + [place] [address] ANNA ESCOBAR Unavailable [address] + [address] [place] [address] R Unavailable Unavailable Unavailable KRISTIN, NANI Unavailable [address] + [place] [address] ANNA ESCOBAR Unavailable [address] [place] [address] R Unavailable Unavailable Unavailable KRISTIN, NANI Unavailable [address] + [place] [address] Care Team Providers Name Role Phone Mark Vines Attending Unavailable Vines, Mark Attending Unavailable Hakan Hoffmann Attending Unavailable Dread, Juan Chi Referring Unavailable BerlinOdilon Attending Unavailable Dread, Juan Chi Referring Unavailable Dread, Juan Chi Primary Care Unavailable Mohinder, Mark Attending Unavailable CAITLYN HIDALGO Attending Unavailable Dread, Juan Chi Primary Care Unavailable Odilon Slade Attending Unavailable Dread, Juan Chi Primary Care Unavailable Carmen Donald Attending Unavailable Hakan Hoffmann Attending Unavailable Dread, Juan Chi Referring Unavailable Dread, Juan Chi Primary Care Unavailable Hakan Hoffmann Attending Unavailable Dread, Juan Chi Referring Unavailable Dread, Juan Chi Primary Care Unavailable Odilon Slade Attending Unavailable Dread, Juan Chi Referring Unavailable Vines, Mark Attending Unavailable Vines, Mark Attending Unavailable Vines, Mark Attending Unavailable Vines, Mark Attending Unavailable Vines, Mark Attending Unavailable Vines, Mark Attending Unavailable Vines, Mark Attending Unavailable Vines, Mark Attending Unavailable Vines, Mark Attending Unavailable Vines, Mark Attending Unavailable Vines, Mark Attending Unavailable Vines, Mark Attending Unavailable Vines, Mark Attending Unavailable Vines, Mark Attending Unavailable Dread, Juan Chi Referring Unavailable Hakan Hoffmann Attending Unavailable Dread, Juan Chi Referring Unavailable Vines, Mark Attending Unavailable Vines, Mark Attending Unavailable Vines, Mark Attending Unavailable Vines, Mark Attending Unavailable Vines, Mark Attending Unavailable Vines, Mark Attending Unavailable Vines, Mark Attending Unavailable Vines, Mark Attending Unavailable Vines, Mark Attending Unavailable Vines, Mark Attending Unavailable Vines, Mark Attending Unavailable Vines, Mark Attending Unavailable Vines, Mark Attending Unavailable Vines, Mark Attending Unavailable Vines, Mark Attending Unavailable Vines, Mark Attending Unavailable Vines, Mark Attending Unavailable Vines, Mark Attending Unavailable Vines, Mark Attending Unavailable Vines, Mark Attending Unavailable Vines, Mark Attending Unavailable Vines, Mark Attending Unavailable Vines, Mark Attending Unavailable PROBLEMS PROBLEMS DATE TYPE CONDITION / CODE ATTENDING STATUS SOURCE 12/12/2018 Unknown D64.9 - Anemia, [facility] unspecified / Community D64.9(ICD-10) Hospital Repository 12/12/2018 Unknown E78.5 - Mark Vines Hyperlipidemia, Community unspecified / Hospital E78.5(ICD-10) Repository 12/12/2018 Unknown I48.91 - Unspecified Mark Vines Active [place] atrial fibrillation / Community I48.91(ICD-10) Hospital Repository 11/28/2018 Unknown F03.90 - Unspecified Mark Vines Active [place] 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 Hospital disturbance / Repository F03.90(ICD-10) 11/28/2018 Unknown 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 / Hospital Z79.01(ICD-10) Repository 10/28/2018 Unknown N39.0 - Urinary tract Mark Vines infection, site not Community specified / Hospital N39.0(ICD-10) Repository 09/02/2018 Unknown Z79.2 - group home Mark Vines (current) use of Community antibiotics / Hospital Z79.2(ICD-10) Repository 08/24/2018 Unknown 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 / Community R62.7(ICD-10) Hospital Repository 03/07/2018 Unknown 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 / I25.10(ICD-10) 03/07/2018 Unknown I48.0 - Paroxysmal Hoffmann Hakan Active [facility] atrial fibrillation / Community I48.0(ICD-10) Hospital Repository 12/31/2017 Unknown M25.552 - Pain in Odilon Slade Active [facility] left hip / Community M25.552(ICD-10) Hospital Repository PROCEDURES PROCEDURES No Procedure Records FoundRESULTS RESULTS Observed: 12/03/2018 Status: F Source: [place] CULTURE, URINE 3:30 AM [facility], [facility]1983 HOSPITAL REPOSITORY Urine Culture ORGANISM 1: Proteus mirabilis [place] Count 1000-10,000 ORGANISM 2: Staphylococcus aureus [place] Count >100,000 Proteus mirabilis: REACTION Amoxacillin/Clavulanic Acid $ 4 [...] >=320 R (NF) indicates non-formulary drug at [facility]. Approval by Infectious Disease Specialist required before non-formulary drugs may be ordered and/or dispensed. Staphylococcus aureus: REACTION Benzylpenicillin NF 0.06 R Cefoxitin *NF - Inducable Clindamycin Resistan - Gentamicin $ <=0.5 S Levofloxacin $ >=8 R Linezolid $$$$ 2 S Moxifloxicin *NF >=8 R Nitrofurantoin $ <=16 S Oxacillin NF 0.5 S Rifampin $$ <=0.5 S Tetracycline NF <=1 S Trimethoprim/Sulfametho $ <=10 S Vancomycin $ 1 S (NF) indicates non-formulary drug at [facility]. Approval by Infectious Disease Specialist required before non-formulary drugs may be ordered and/or dispensed. * CLSI guidelines does not recommend testing of cephalosporins. This interpretation is deduced from Beta-lactam/penicillin results. Performed By: #### M100.0650 #### [facility] [address] [place], [address] BASIC METABOLIC Collected: 11/28/2018 Status: F Source: [place] PROFILE ([facility]) 5:50 AM [facility], [facility]1983 HOSPITAL REPOSITORY Order Comment: ROOM 317 TYPE CODE TESTS RESULT OUT OF RANGE REFERENCE UNITS LAB L501.0100 74-106 mg/dL Normal GLU 92 Result Comment: Please note revised GLUCOSE reference range effective 2017. LAB L501.1000 7-18 mg/dL Normal BUN 12 LAB L501.1100 0.70-1.30 mg/dL Low CREAT,SERUM 0.64 Result Comment: The validity of the calculated GFR AND GFRAA in patients over 70 years has not been determined. Clinical correlation is essential. LAB L501.1110 >60 mL/min Normal EST GFR 128 Result Comment: Non- GFR Calc LAB L501.1115 >60 mL/min Normal EST GFR - AA 154 Result Comment: GFR Calc LAB L501.1300 10-20 RATIO Normal BUN/CRE 18.8 LAB L501.2200 8.5-10.1 mg/dL Low CA 8.3 LAB L501.5300 136-145 mmol/L NA Normal 141 LAB L501.5600 3.5-5.1 mmol/L K Normal 4.0 LAB L501.5900 98-107 mmol/L CL Normal 105 LAB L501.6100 21.0-32.0 mmol/L Normal CO2 26.0 LAB L501.6200 5-15 Normal GAP 10 Performed By: #### L500.2500, L500.3400, L500.4100 #### [facility] [address] [place], [address] LIVER PROFILE Collected: 11/28/2018 Status: F Source: [place] 5:50 AM [facility] REPOSITORY Order Comment: ROOM 317 TYPE CODE TESTS RESULT OUT OF RANGE REFERENCE UNITS LAB L501.1500 6.4-8.2 g/dL Low T PROT 6.2 LAB L501.1800 3.2-5.0 g/dL Low ALB 2.5 LAB L501.1950 2.2-4.2 g/dL Normal GLOB 3.7 LAB L501.4100 15-37 U/L Normal AST 21 LAB L501.4305 45-117 U/L Normal ALK P 56 LAB L501.4405 16-61 U/L Normal ALT 16 LAB L501.4600 0.20-1.00 mg/dL Normal T BILI 0.50 LAB L501.4700 0.00-0.30 mg/dL Normal D BILI 0.15 Performed By: #### L500.2500, L500.3400, L500.4100 #### [facility] [address] [place], [address] LIPID PROFILE Collected: 11/28/2018 Status: F Source: [place] 5:50 AM [facility] REPOSITORY Order Comment: ROOM 317 TYPE CODE TESTS RESULT OUT OF RANGE REFERENCE UNITS LAB L501.4900 200 mg/dL Normal CHOL 93 Result Comment: <200 mg/dL Desirable 200-240 mg/dL Borderline >240 mg/dL High Risk LAB L501.5000 mg/dL Normal TRIG 64 Result Comment: The drugs N-Acetylcysteine and Metamizole may falsely depress this assay. Serum Triglycerides Reference Interval Normal <150 mg/dL Borderline high 150 - 199 mg/dL High 200 - 499 mg/dL Very High > or = 500 mg/dL LAB L501.6400 mg/dL Low HDL 33 Result Comment: The drugs N-Acetylcysteine and Metamizole may falsely depress this assay. Reference Range HDL <40 mg/dL Low HDL Cholesterol HDL >or= 60 mg/dL High HDL Cholesterol LAB L501.6500 0-130 mg/dL Normal LDL 47 LAB L501.6600 5-40 mg/dL Normal VLDL 13 Performed By: #### L500.2500, L500.3400, L500.4100 #### [facility] [address] [facility]. [place], [place], [id number] CBC-COMPLETE BLOOD CNT Collected: 11/28/2018 Status: F Source: [place] NO DIFF 5:50 AM [facility] REPOSITORY Order Comment: ROOM 317 TYPE CODE TESTS RESULT OUT OF RANGE REFERENCE UNITS LAB L100.1000 4.4-11.0 K/mm3 Normal WBC 5.7 LAB L100.1200 4.6-6.2 M/mm3 Low RBC 4.19 LAB L100.1300 13.0-16.5 g/dl Low HGB 12.6 LAB L100.1400 40-54 % Low HCT 38.8 LAB L100.1500 80-94 fL Normal MCV 92.6 LAB L100.1600 27.0-32.0 pg Normal MCH 30.1 LAB L100.1700 32-36 g/gl Normal MCHC 32.5 LAB L100.1810 11.6-14.6 % High RDW CV 15.8 LAB L100.1820 35.1-43.9 fl High RDW SD 53.4 LAB L100.1900 150-450 K/mm3 Normal PLT 168 LAB L100.2000 6.2-12.0 fl Normal MPV 9.8 Performed By: #### L100.0500 #### [facility] [address] [place], [address] PROTHROMBIN TIME W/INR Collected: 11/07/2018 Status: F Source: [place] 5:43 AM [facility] REPOSITORY TYPE CODE TESTS RESULT OUT OF RANGE REFERENCE UNITS LAB L300.4150 11.7-14.9 SECONDS High PROTIME 22.0 LAB L300.4200 Normal INR 1.9 Performed By: #### L300.3900 #### [facility] [address] [place], [place], [address] PROTHROMBIN TIME W/INR Collected: 10/31/2018 Status: F Source: [place] 6:10 AM [facility] REPOSITORY Order Comment: RM 317 TYPE CODE TESTS RESULT OUT OF REFERENCE UNITS RANGE LAB L300.4150 11.7-14.9 SECONDS High PROTIME 37.8 LAB L300.4200 High alert INR 3.8 Result Comment: CRITICAL VALUE VERIFIED. CALLED TO RIA ([facility]) 10/31/18 0908 Chandra Ling. RESULTS READ BACK BY SAME . Performed By: #### L300.3900 #### [facility] [address] [place], [place], [address] PROTHROMBIN TIME W/INR Collected: 10/24/2018 Status: F Source: [place] 6:55 AM [facility] REPOSITORY Order Comment: ROOM 317 TYPE CODE TESTS RESULT OUT OF REFERENCE UNITS RANGE LAB L300.4150 11.7-14.9 SECONDS High PROTIME 37.2 LAB L300.4200 High alert INR 3.7 Result Comment: CRITICAL VALUE VERIFIED. CALLED TO PROSPER 10/24/18 Juanito2 Joi Lacy. RESULTS READ BACK BY SAME . Performed By: #### L300.3900 #### [facility] [address] [place], [place], [address] LIPID PROFILE Collected: 10/24/2018 Status: F Source: [place] 6:55 AM [facility] REPOSITORY Order Comment: ROOM 317 TYPE CODE [...] VLDL 11 Performed By: #### L500.4100 #### [facility] [address] [place], [address] VALPROIC ACID Collected: 10/24/2018 Status: F Source: [place] (DEPAKENE) LEVEL 6:55 AM [facility] REPOSITORY Order Comment: ROOM 317 TYPE CODE TESTS RESULT OUT OF REFERENCE UNITS RANGE LAB L501.8100 50-100 ug/mL Low VALPROIC ACID 39 Performed By: #### L501.8100 #### [facility] [address] [place], [address] PROTHROMBIN TIME W/INR Collected: 10/17/2018 Status: F Source: [place] 7:15 AM [facility] REPOSITORY Order Comment: 317 TYPE CODE TESTS RESULT OUT OF RANGE REFERENCE UNITS LAB L300.4150 11.7-14.9 SECONDS High PROTIME 28.9 LAB L300.4200 Normal INR 2.7 Performed By: #### L300.3900 #### [facility] [address] [place], [address] PROTHROMBIN TIME W/INR Collected: 10/14/2018 Status: F Source: [place] 7:25 AM [facility] REPOSITORY Order Comment: ROOM 317 TYPE CODE TESTS RESULT OUT OF RANGE REFERENCE UNITS LAB L300.4150 11.7-14.9 SECONDS High PROTIME 32.6 LAB L300.4200 Normal INR 3.2 Performed By: #### L300.3900 #### [facility] [address] [place], [address] PROTHROMBIN TIME W/INR Collected: 10/10/2018 Status: F Source: [place] 7:00 AM [facility] REPOSITORY TYPE CODE TESTS RESULT OUT OF REFERENCE UNITS RANGE LAB L300.4150 11.7-14.9 SECONDS High PROTIME 38.1 LAB L300.4200 High alert INR 3.8 Result Comment: CRITICAL VALUE VERIFIED. CALLED TO YENNIFER ORNELAS 10/10/18 0828 Zoran Interiano. RESULTS READ BACK BY SAME. Performed By: #### L300.3900 #### [facility] [address] [place], [address] PROTHROMBIN TIME W/INR Collected: 10/03/2018 Status: F Source: [place] 6:55 AM [facility] REPOSITORY TYPE CODE TESTS RESULT OUT OF RANGE REFERENCE UNITS LAB L300.4150 11.7-14.9 SECONDS High PROTIME 34.1 LAB L300.4200 Normal INR 3.3 Performed By: #### L300.3900 #### [facility] [address] [place], [address] PROTHROMBIN TIME W/INR Collected: 09/29/2018 Status: F Source: [place] 6:30 AM [facility] REPOSITORY TYPE CODE TESTS RESULT OUT OF RANGE REFERENCE UNITS LAB L300.4150 11.7-14.9 SECONDS High PROTIME 28.1 LAB L300.4200 Normal INR 2.6 Performed By: #### L300.3900 #### [facility] [address] [place], [address] PROTHROMBIN TIME W/INR Collected: 09/26/2018 Status: F Source: [place] 7:15 AM [facility] REPOSITORY Order Comment: 317 TYPE CODE TESTS RESULT OUT OF RANGE REFERENCE UNITS LAB L300.4150 11.7-14.9 SECONDS High PROTIME 21.2 LAB L300.4200 Normal INR 1.8 Performed By: #### L300.3900 #### [facility] [address] [place], [address] URINALYSIS, ROUTINE Collected: 09/19/2018 Status: F Source: [place] (DIPSTICK) 11:00 PM [facility] REPOSITORY Order Comment: COLOR OF URINE MAY [...] ESTERASE 500 Performed By: #### L400.2010 #### [facility] [address] [place], [place], [address] Observed: 09/19/2018 Status: F Source: [place] CULTURE, URINE 11:00 PM [facility] REPOSITORY Urine Culture ORGANISM 1: Coag Negative Staph [place] Count >100,000 Coag Negative Staph: REACTION Benzylpenicillin NF >=0.5 R Cefoxitin *NF + Inducable Clindamycin Resistan - Gentamicin $ 1 S Levofloxacin $ >=8 R Nitrofurantoin $ <=16 S Oxacillin NF >=4 R Rifampin $$ <=0.5 S Tetracycline NF >=16 R Vancomycin $ <=0.5 S (NF) indicates non-formulary drug at [facility]. Approval by Infectious Disease Specialist required before non-formulary drugs may be ordered and/or dispensed. * CLSI guidelines does not recommend testing of cephalosporins. This interpretation is deduced from Beta-lactam/penicillin results. Performed By: #### M100.0650 #### [facility] [address] [place], [place], [address] PROTHROMBIN TIME W/INR Collected: 09/19/2018 Status: F Source: [place] 7:00 AM [facility] REPOSITORY TYPE CODE TESTS RESULT OUT OF RANGE REFERENCE UNITS LAB L300.4150 11.7-14.9 SECONDS High PROTIME 31.5 LAB L300.4200 Normal INR 3.0 Performed By: #### L300.3900 #### [facility] [address] [place], [id number] PROTHROMBIN TIME W/INR Collected: 09/12/2018 Status: F Source: MICHELLE 7:25 AM [facility] REPOSITORY TYPE CODE TESTS RESULT OUT OF RANGE REFERENCE UNITS LAB L300.4150 11.7-14.9 SECONDS High PROTIME 21.7 LAB L300.4200 Normal INR 1.9 Performed By: #### L300.3900 #### [facility] [address] [place], [address] PROTHROMBIN TIME W/INR Collected: 09/05/2018 Status: F Source: MICHELLE 7:15 AM [facility] REPOSITORY Order Comment: ROOM 317 TYPE CODE TESTS RESULT OUT OF RANGE REFERENCE UNITS LAB L300.4150 11.7-14.9 SECONDS High PROTIME 16.4 LAB L300.4200 Normal INR 1.3 Performed By: #### L300.3900 #### [facility] [place], [place], [address] PROTHROMBIN TIME W/INR Collected: 08/29/2018 Status: F Source: MICHELLE 7:20 AM [facility] REPOSITORY TYPE CODE TESTS RESULT OUT OF RANGE REFERENCE UNITS LAB L300.4150 11.7-14.9 SECONDS High PROTIME 29.9 LAB L300.4200 Normal INR 2.8 Performed By: #### L300.3900 #### [facility] [address] [place], [place], [address] CBC-COMPLETE BLOOD CNT Collected: 08/22/2018 Status: F Source: MICHELLE NO DIFF 7:20 AM [facility] REPOSITORY TYPE CODE TESTS RESULT OUT OF [...] MPV 10.4 Performed By: #### L100.0500 #### [facility] [address] [place], [address] BASIC METABOLIC Collected: 08/22/2018 Status: F Source: BOISE PROFILE ([facility]) 7:20 AM [facility] REPOSITORY TYPE CODE TESTS RESULT OUT OF [...] GAP 8 Performed By: #### L500.2500 #### [facility] [address] [place], [address] PROTHROMBIN TIME W/INR Collected: 08/22/2018 Status: F Source: MICHELLE 7:20 AM [facility] REPOSITORY TYPE CODE TESTS RESULT OUT OF RANGE REFERENCE UNITS LAB L300.4150 11.7-14.9 SECONDS High PROTIME 25.0 LAB L300.4200 Normal INR 2.3 Performed By: #### L300.3900 #### [facility] [place], [address] PROTHROMBIN TIME W/INR Collected: 08/15/2018 Status: F Source: MICHELLE 6:00 AM [facility] REPOSITORY TYPE CODE TESTS RESULT OUT OF RANGE REFERENCE UNITS LAB L300.4150 11.7-14.9 SECONDS High PROTIME 20.1 LAB L300.4200 Normal INR 1.7 Performed By: #### L300.3900 #### [facility] [place], [address] PROTHROMBIN TIME W/INR Collected: 08/08/2018 Status: F Source: MICHELLE 6:50 AM [facility] REPOSITORY TYPE CODE TESTS RESULT OUT OF RANGE REFERENCE UNITS LAB L300.4150 11.7-14.9 SECONDS High PROTIME 28.7 LAB L300.4200 Normal INR 2.7 Performed By: #### L300.3900 #### [facility] [place], [address] PROTHROMBIN TIME W/INR Collected: 08/01/2018 Status: F Source: MICHELLE 7:15 AM [facility] REPOSITORY Order Comment: 317 TYPE CODE TESTS RESULT OUT OF RANGE REFERENCE UNITS LAB L300.4150 11.7-14.9 SECONDS High PROTIME 19.7 LAB L300.4200 Normal INR 1.7 Performed By: #### L300.3900 #### [facility] [place], [address] PROTHROMBIN TIME W/INR Collected: 07/30/2018 Status: F Source: MICHELLE 7:15 AM [facility] REPOSITORY TYPE CODE TESTS RESULT OUT OF RANGE REFERENCE UNITS LAB L300.4150 11.7-14.9 SECONDS High PROTIME 26.4 LAB L300.4200 Normal INR 2.4 Performed By: #### L300.3900 #### [facility] [address] [place], [address] PROTHROMBIN TIME W/INR Collected: 07/22/2018 Status: F Source: MICHELLE 7:55 AM [facility] REPOSITORY Order Comment: ROOM 317 TYPE CODE TESTS RESULT OUT OF RANGE REFERENCE UNITS LAB L300.4150 11.7-14.9 SECONDS High PROTIME 21.0 LAB L300.4200 Normal INR 1.8 Performed By: #### L300.3900 #### [facility] [address] [place], [address] VALPROIC ACID Collected: 07/22/2018 Status: F Source: MIHCELLE (DEPAKENE) LEVEL 7:55 AM [facility] REPOSITORY Order Comment: ROOM 317 TYPE CODE TESTS RESULT OUT OF REFERENCE UNITS RANGE LAB L501.8100 50-100 ug/mL Low VALPROIC ACID 38 Performed By: #### L501.8100 #### [facility] [address] [place], [address] URINALYSIS, COMPLETE Collected: 07/21/2018 Status: F Source: MICHELLE 4:00 PM [facility] REPOSITORY Order Comment: How was Urine Obtained? [...] Normal AMORPHOUS Performed By: #### L400.0001 #### [facility] [address] [facility] [place], [place], [address] Observed: 07/21/2018 Status: F Source: BOISE CULTURE, URINE 4:00 PM [facility] REPOSITORY Urine Culture ORGANISM 1: Proteus mirabilis [place] Count >100,000 Proteus mirabilis: REACTION Amoxacillin/Clavulanic Acid [...] >=320 R (NF) indicates non-formulary drug at [facility]. Approval by Infectious Disease Specialist required before non-formulary drugs may be ordered and/or dispensed. Performed By: #### M100.0650 #### [facility] [address] [facility] [place], [place], [address] PROTHROMBIN TIME W/INR Collected: 07/18/2018 Status: F Source: BOISE 6:20 AM [facility] REPOSITORY Order Comment: 317 TYPE CODE TESTS RESULT OUT OF RANGE REFERENCE UNITS LAB L300.4150 11.7-14.9 SECONDS High PROTIME 31.7 LAB L300.4200 Normal INR 3.0 Performed By: #### L300.3900 #### [facility] [address] [place], [address] PROTHROMBIN TIME W/INR Collected: 07/14/2018 Status: F Source: BOISE 6:45 AM [facility] REPOSITORY Order Comment: ROOM 317 TYPE CODE TESTS RESULT OUT OF RANGE REFERENCE UNITS LAB L300.4150 11.7-14.9 SECONDS High PROTIME 27.6 LAB L300.4200 Normal INR 2.6 Performed By: #### L300.3900 #### [facility] [address] [place] [address]. [place], [address] PROTHROMBIN TIME W/INR Collected: 07/11/2018 Status: F Source: BOISE 5:15 AM [facility] REPOSITORY Order Comment: 317 TYPE CODE TESTS RESULT OUT OF RANGE REFERENCE UNITS LAB L300.4150 11.7-14.9 SECONDS High PROTIME 30.6 LAB L300.4200 Normal INR 2.9 Performed By: #### L300.3900 #### [facility] [address] [place] [address]. [place], [address] PROTHROMBIN TIME W/INR Collected: 07/07/2018 Status: F Source: BOISE 6:15 AM [facility] REPOSITORY Order Comment: 317 TYPE CODE TESTS RESULT OUT OF RANGE REFERENCE UNITS LAB L300.4150 11.7-14.9 SECONDS High PROTIME 29.4 LAB L300.4200 Normal INR 2.8 Performed By: #### L300.3900 #### [facility] [place], [address] PROTHROMBIN TIME W/INR Collected: 2018 Status: F Source: BOISE 9:20 AM [facility] REPOSITORY Order Comment: 317 TYPE CODE TESTS RESULT OUT OF RANGE REFERENCE UNITS LAB L300.4150 11.7-14.9 SECONDS High PROTIME 26.0 LAB L300.4200 Normal INR 2.4 Performed By: #### L300.3900 #### [facility] [address] [place], [address] Observed: 07/02/2018 Status: F Source: MICHELLE CULTURE, WOUND 6:30 AM [facility] REPOSITORY Gram Stain Gram Stain 1+ Red Blood Cells No White Blood Cells 2+ Gram positive cocci Wound Culture RESULTS FAXED TO [facility] 07/05/18717 Esperanza Wilma. Copy of report sent to Infection Control Printer MS#[id number] 07/05/1818 GUMARO. ORGANISM 1: Proteus mirabilis Amount Growth [...] >=320 R (NF) indicates non-formulary drug at [facility]. Approval by Infectious Disease Specialist [...] 1 S (NF) indicates non-formulary drug at [facility]. Approval by Infectious Disease Specialist required before non-formulary drugs may be ordered and/or dispensed. * CLSI guidelines does not recommend testing of cephalosporins. This interpretation is deduced from Beta-lactam/penicillin results. Performed By: #### M100.1400 #### [facility] [address] [place], [address] PROTHROMBIN TIME W/INR Collected: 06/27/2018 Status: F Source: MICHELLE 6:55 AM [facility] REPOSITORY Order Comment: 317 TYPE CODE TESTS RESULT OUT OF RANGE REFERENCE UNITS LAB L300.4150 11.7-14.9 SECONDS High PROTIME 23.3 LAB L300.4200 Normal INR 2.1 Performed By: #### L300.3900 #### [facility] [address] [place], [address] PROTHROMBIN TIME W/INR Collected: 06/20/2018 Status: F Source: MICHELLE 6:15 AM [facility] REPOSITORY TYPE CODE TESTS RESULT OUT OF RANGE REFERENCE UNITS LAB L300.4150 11.7-14.9 SECONDS High PROTIME 17.7 LAB L300.4200 Normal INR 1.5 Performed By: #### L300.3900 #### [facility] [place], [address] PROTHROMBIN TIME W/INR Collected: 06/13/2018 Status: F Source: MICHELLE 6:55 AM [facility] REPOSITORY Order Comment: 317 TYPE CODE TESTS RESULT OUT OF RANGE REFERENCE UNITS LAB L300.4150 11.7-14.9 SECONDS High PROTIME 18.0 LAB L300.4200 Normal INR 1.5 Performed By: #### L300.3900 #### [facility] [address] [place], [address] PROTHROMBIN TIME W/INR Collected: 06/06/2018 Status: F Source: MICHELLE 8:30 AM [facility] REPOSITORY Order Comment: 317 TYPE CODE TESTS RESULT OUT OF RANGE REFERENCE UNITS LAB L300.4150 11.7-14.9 SECONDS Normal PROTIME 14.5 LAB L300.4200 Normal INR 1.1 Performed By: #### L300.3900 #### [facility] [address] [place], [address] BASIC METABOLIC Collected: 06/06/2018 Status: F Source: MICHELLE PROFILE (BMP) 8:30 AM [facility] REPOSITORY Order Comment: VERIFIED WITH NURSE THAT [...] GAP 11 Performed By: #### L500.2500 #### [facility] [address] [place], [place], [address] CBC-COMPLETE BLOOD CNT Collected: 06/06/2018 Status: F Source: MICHELLE NO DIFF 8:30 AM [facility] REPOSITORY Order Comment: VERIFIED WITH NURSE THAT [...] MPV 10.2 Performed By: #### L100.0500 #### [facility] [address] [facility] [address] [place], [place], [address] URINALYSIS, ROUTINE Collected: 05/31/2018 Status: F Source: BOISE (DIPSTICK) 10:00 PM [facility] REPOSITORY Order Comment: How was Urine Obtained? [...] ESTERASE 500 Performed By: #### L400.2010 #### [facility] [address] [place], [place], [address] Observed: 05/31/2018 Status: F Source: BOISE CULTURE, URINE 10:00 PM [facility] REPOSITORY Urine Culture ORGANISM 1: Proteus mirabilis [place] Count 1000-10,000 Proteus mirabilis: REACTION Amoxacillin/Clavulanic Acid [...] >=320 R (NF) indicates non-formulary drug at [facility]. Approval by Infectious Disease Specialist required before non-formulary drugs may be ordered and/or dispensed. Performed By: #### M100.0650 #### [facility] [address] [facility] [place], [place], [address] PROTHROMBIN TIME W/INR Collected: 05/30/2018 Status: F Source: BOISE 6:55 AM [facility] REPOSITORY Order Comment: 317 TYPE CODE TESTS RESULT OUT OF RANGE REFERENCE UNITS LAB L300.4150 11.7-14.9 SECONDS High PROTIME 18.2 LAB L300.4200 Normal INR 1.5 Performed By: #### L300.3900 #### [facility]. [place], [place], [address] PROTHROMBIN TIME W/INR Collected: 05/23/2018 Status: F Source: BOISE 8:00 AM [facility] REPOSITORY Order Comment: 317 TYPE CODE TESTS RESULT OUT OF RANGE REFERENCE UNITS LAB L300.4150 11.7-14.9 SECONDS High PROTIME 17.2 LAB L300.4200 Normal INR 1.4 Performed By: #### L300.3900 #### [facility] [address] [facility] [place], [address] PROTHROMBIN TIME W/INR Collected: 05/19/2018 Status: F Source: BOISE 6:05 AM [facility] REPOSITORY Order Comment: 317 TYPE CODE TESTS RESULT OUT OF RANGE REFERENCE UNITS LAB L300.4150 11.7-14.9 SECONDS High PROTIME 31.9 LAB L300.4200 Normal INR 3.1 Performed By: #### L300.3900 #### [facility] [address] [place], [place], [address] CBC W/DIFF, AUTOMATED Collected: 05/16/2018 Status: F Source: MICHELLE 8:35 AM [facility] REPOSITORY Order Comment: ROOM 317\ TYPE CODE [...] Lymph 1.19 Performed By: #### L100.0100 #### [facility] [address] [place], [place], [address] PROTHROMBIN TIME W/INR Collected: 05/16/2018 Status: F Source: MICHELLE 8:35 AM [facility] REPOSITORY Order Comment: ROOM 317\ TYPE CODE TESTS RESULT OUT OF RANGE REFERENCE UNITS LAB L300.4150 11.7-14.9 SECONDS High PROTIME 34.5 LAB L300.4200 Normal INR 3.4 Performed By: #### L300.3900 #### [facility] [address] [place], [place], [address] BASIC METABOLIC Collected: 05/16/2018 Status: F Source: MICHELLE PROFILE (BMP) 8:35 AM [facility] REPOSITORY Order Comment: ROOM 317\ TYPE CODE [...] Performed By: #### L500.2500, L501.1800, L506.0500 #### [facility] [address] [place], [address] ALBUMIN, SERUM Collected: 05/16/2018 Status: F Source: MICHELLE 8:35 AM [facility] REPOSITORY Order Comment: ROOM 317\ TYPE CODE TESTS RESULT OUT OF RANGE REFERENCE UNITS LAB L501.1800 3.2-5.0 g/dL Low ALB 2.4 Performed By: #### L500.2500, L501.1800, L506.0500 #### [facility] [address] [place], [address] PREALBUMIN Collected: 05/16/2018 Status: F Source: BOISE 8:35 AM [facility] REPOSITORY Order Comment: ROOM 317\ TYPE CODE TESTS RESULT OUT OF REFERENCE UNITS RANGE LAB L506.0500 20.0-40.0 mg/dL Low PREALBUMIN 8.7 Performed By: #### L500.2500, L501.1800, L506.0500 #### [facility] [address] [facility] [place], [address] CBC W/DIFF, AUTOMATED Collected: 05/13/2018 Status: F Source: BOISE 6:26 AM [facility] REPOSITORY TYPE CODE TESTS RESULT OUT OF [...] Lymph 0.90 Performed By: #### L100.0100 #### [facility] [address] [place], [address] BASIC METABOLIC Collected: 05/13/2018 Status: F Source: BOISE PROFILE (BMP) 6:26 AM [facility] REPOSITORY TYPE CODE TESTS RESULT OUT OF [...] GAP 9 Performed By: #### L500.2500 #### [facility] [address] [place], [address] URINALYSIS, ROUTINE Collected: 05/13/2018 Status: F Source: MICHELLE (DIPSTICK) 12:00 AM [facility] REPOSITORY Order Comment: COLOR OF URINE MAY [...] ESTERASE 500 Performed By: #### L400.2011 #### [facility] [address] [place], [address] Observed: 05/13/2018 Status: F Source: MICHELLE CULTURE, URINE 12:00 AM [facility] REPOSITORY Urine Culture ORGANISM 1: Proteus mirabilis [place] Count >100,000 ORGANISM 2: Enterobacter cloacae complex [place] Count >100,000 Proteus mirabilis: REACTION Amoxacillin/Clavulanic Acid [...] >=320 R (NF) indicates non-formulary drug at [facility]. Approval by Infectious Disease Specialist [...] >=320 R (NF) indicates non-formulary drug at [facility]. Approval by Infectious Disease Specialist required before non-formulary drugs may be ordered and/or dispensed. Performed By: #### M100.0650 #### [facility] [address] [facility] [place], [place], [address] PROTHROMBIN TIME W/INR Collected: 05/12/2018 Status: F Source: BOISE 5:55 AM [facility] REPOSITORY Order Comment: 317 TYPE CODE TESTS RESULT OUT OF RANGE REFERENCE UNITS LAB L300.4150 11.7-14.9 SECONDS High PROTIME 17.7 LAB L300.4200 Normal INR 1.5 Performed By: #### L300.3900 #### [facility] [address] [facility] [place], [address] CBC W/DIFF, AUTOMATED Collected: 05/10/2018 Status: F Source: BOISE 6:55 AM [facility] REPOSITORY Order Comment: 317 TYPE CODE TESTS [...] Lymph 1.95 Performed By: #### L100.0100 #### [facility] [address] [facility] [place], [place], [address] PROTHROMBIN TIME W/INR Collected: 05/10/2018 Status: F Source: MICHELLE 6:55 AM [facility] REPOSITORY Order Comment: 317 TYPE CODE TESTS RESULT OUT OF RANGE REFERENCE UNITS LAB L300.4150 11.7-14.9 SECONDS High PROTIME 16.7 LAB L300.4200 Normal INR 1.4 Performed By: #### L300.3900 #### [facility] [address] [place], [address] BASIC METABOLIC Collected: 05/10/2018 Status: F Source: MICHELLE PROFILE (BMP) 6:55 AM [facility] REPOSITORY Order Comment: 317 TYPE CODE TESTS [...] 7 Performed By: #### L500.2500, L500.4100 #### [facility] [address] [place], [address] LIPID PROFILE Collected: 05/10/2018 Status: F Source: BOISE 6:55 AM [facility] REPOSITORY Order Comment: 317 TYPE CODE TESTS [...] 10 Performed By: #### L500.2500, L500.4100 #### [facility] [address], [address] VALPROIC ACID Collected: 05/10/2018 Status: F Source: MICHELLE (KENNEDY) LEVEL 6:55 AM [facility] REPOSITORY Order Comment: 317 TYPE CODE TESTS RESULT OUT OF REFERENCE UNITS RANGE LAB L501.8100 50-100 ug/mL Low VALPROIC ACID 43 Performed By: #### L501.8100 #### [facility] [address] [place], [address] PACEMAKER CHECK Observed: 03/20/2018 Status: F Source: MICHELLE 10:12 AM [facility] REPOSITORY [facility] [address] [place] [address] Pacemaker Check Date of Service: 03/07/18 1423 MR#: [id number] Acct: [id number] Name: TAY ESCOBAR Rep #: [id number] : 1935 From: Hakan Hoffmann MD Age/Sex: 82/M Location: [place] Status: Signed Comments Summary Comments: Dual Chamber Pacemaker Evaluation: Interrogation shows 105 MS episodes, 63% total time or 122.7 days, and 1 NSVT episode since 08/24/17. Stored e-grams show atrial fib with appropriate MS. Presenting rhythm shows AAI pacing @ 60 ppm. SLOT HOST=52%, AP=17%. Battery longevity approx 4.5 yrs. Lead impedances, sensing and pace/sense thresholds remain stable. No parameter changes made. Counters cleared. Next f/u appt scheduled for in 6 mos. Pt resides @ [facility]. Device Device Date Interviewed: 03/07/18 Follow-up Location: in office Interview Reason: routine follow up Town Manager: [employer] Name: [employer]rua 60 EL Model: S606 Serial #: [id number] Implant Date: 04/03/10 Year(s): 7 Implant Physician: Dr. Pelon Osborn/Shikha Patient Characteristics Atrial Indication: Paroxysmal atrial fibrillation, sick sinus syndrome Patient Substrate: Ischemic cardiomyopathy Ejection fraction %: 45 to 49 (09/09/2017) By: Echo Underlying rhythm: Atrial fibrillation Pacemaker Dependent: No Device Characteristics Device: Dual Chamber Type: Pacemaker Remote Follow-Up: No Device Physical Exam Yes Incision well healed Leads Lead #1 Town Manager Lead 1: Guidant Model Lead 1: 4137 Serial# Lead 1: [id number] Date Implanted Lead 1: 04/03/10 Position Lead 1: RA Lead #2 Town Manager Lead 2: Guidant Model Lead 2: 4470 Serial# Lead 2: [id number] Date Implanted Lead 2: 04/03/10 Position Lead [...] Problems 1. Presence of cardiac pacemaker Z95.0 [employer] 2. Sick sinus syndrome I49.5 3. Chronic atrial fibrillation I48.2 4. Paroxysmal atrial fibrillation I48.0 5. Cardiomyopathy in disease classified elsewhere I43 03/20/18 1012 <Electronically signed by Hakan Hoffmann MD> Date Hakan Hoffmann MD 03/19/18 1155<Electronically signed by Milena Coles > Christie Signature: Date (if applicable) Milena Coles CC: CARDIOLOGY VISIT Observed: 03/07/2018 Status: F Source: MICHELLE REPORT 2:07 PM [facility] REPOSITORY [facility] [address] [place] [address] OFFICE VISIT Date of Service: 03/07/18 MR#: [id number] Acct: [id number] Name: TAY ESCOBAR Rep #: [id number] : 1935 Provider: Hakan Hoffmann MD Age/Sex: 82/M Location: [place] Status: Signed HPI HPI Chief Complaint: Routine [...] sinus syndrome and underwent chamber pacemaker at [facility] on 04/03/10. He was formerly seen by alcohol [facility] and [place] is being referred here for convenience. He [...] October 2017 the patient was admitted to [facility] with a hip fracture, requiring surgical correction. Unfortunately he is wheelchair-bound, and does not walk at the prison. Patient currently resides at [facility], and apparently is deteriorating according to his . He is in a wheelchair today, with a urinary bag. He is fairly demented, and believes he comes home on the weekend to sit in his truck. He does not walk at the prison. In our office today's blood pressure is [...] mg PO DAILY 11/17/17 [History Confirmed 03/07/18] PFS Medical History Sick sinus syndrome (Chronic) Cardiomyopathy in disease classified elsewhere (Chronic) Nonrheumatic mitral (valve) insufficiency (Chronic) Non-rheumatic tricuspid valve insufficiency (Chronic) Hyperlipidemia (Chronic) Chronic atrial fibrillation (Chronic) Presence of cardiac pacemaker (Chronic 03/31/13) Atherosclerosis of coronary artery of [place] heart without angina pectoris (Chronic) GI bleed [...] Plan 1. Atherosclerosis of coronary artery of [place] heart without angina pectoris I25.10 Plan 1. [...] warfarin therapy. He does not ambulate, lives 24/7 in a prison, is under supervision, and therefore he is at a reduced fall risk. 4. Return office in 6 months. This note was generated using a voice recognition system and there may be incorrect words, spelling or punctuation that were not noted when reviewing the office note prior to saving. Plan Detail Follow Up +6m (Hoffmann) Coding Level of Care Code Off vis,est,level 3 Diagnoses Atherosclerosis of coronary artery of [place] heart without angina pectoris I25.10 Hyperlipidemia E78.5 Paroxysmal atrial fibrillation I48.0 Coding Level of Care Code Off vis,est,level 3 Diagnoses Atherosclerosis of coronary artery of [place] heart without angina pectoris I25.10 Hyperlipidemia E78.5 Paroxysmal atrial fibrillation I48.0 03/07/18 1407 <Electronically signed by Hakan Hoffmann MD> Date Hakan Hoffmann MD Cosigner Signature: Date (if applicable) CC: Juan Canada MD ORTHOPEDIC VISIT Observed: 01/12/2018 Status: F Source: MICHELLE REPORT 10:11 AM [facility] REPOSITORY [facility] [address] [place] [id number] OFFICE VISIT Date of Service: 12/31/17 MR#: [id number] Acct: [id number] Name: TAY ESCOBAR Rep #: [id number] : 1935 Provider: Odilon Slade DO Age/Sex: 82/M Location: [facility] [place] [place] Status: Signed Intake Intake Visit Reasons: Lt [...] his symptoms are. Patient currently lives at [facility]. According to PT states he does seem [...] left femur with routine healing, subsequent encounter S72.081C Plan Assessment: After orthopedic status post left hip gamma nail for intertrochanteric femur fracture routine healing doing well. Plan: She will follow-up with me in 6-12 weeks. Weightbearing as tolerated. Any issues please contact. X-rays at next. Orders Orders: Coding Level of Care Code Global Post Op Diagnoses Closed displaced intertrochanteric fracture of left femur with routine healing, subsequent encounter S72.240D Encounter type: subsequent encounter Fracture type: closed Fracture alignment: displaced Laterality: left Fracture healing: with routine healing 01/12/18 1011 <Electronically signed by Odilon Slade DO> Date Odilon Slade DO Cosigner Signature: Date (if applicable) CC: HIP 2-3 VIEWS WITH Observed: 12/31/2017 Status: F Source: MICHELLE PELVIS 1:20 PM [facility] REPOSITORY [facility] Imaging Services [address] [place] [address] Hip 2-3 Views with Pelvis MR#: [id number] Acct: [id number] Name: TAY ESCOBAR Rep #: [id number] : 1935 M 82 From: Hellen Sullivan MD PCP: Dread SHELBY,Juan Vázquez Status: REG CLI Study: Hip 2-3 Views with Pelvis Date of Exam: 12/31/17 Exam# [id number] Ordering Dr: Odilon Slade DO STUDY: X-RAY [...] Sullivan MD at 0:54 EST Tel Direct: [phone], Service support , CC: Odilon Slade DO; Juan Canada MD Entry Level Paralegal: Signed ALLERGIES ALLERGIES DATE TYPE / CODE NAME / CODE REACTION SEVERITY SOURCE 03/07/2018 Drug No Known Unknown [place] [facility] Allergy/4160 Allergies/F00 Hospital 10682(SNOMED [id number](RXNOR Repository CT) M) ENCOUNTERS ENCOUNTERS ADMIT/DISCHARGE ACCOUNT ADMITTING ENCOUNTER LOCATION SOURCE NUMBER CLASS 12/03/2018 [id number] Ambulatory [place] Michelle [address] [facility] Hospital ing:OLS.WHLCA Repository R 11/28/2018 [id number] Ambulatory Michelle [place] [address] [facility] Hospital ing:OLS.WHLCA Repository R 11/07/2018 [id number] Ambulatory Michelle Michelle [address] [facility] Hospital ing:OLS.WHLCA Repository R 10/31/2018 [id number] Ambulatory Michelle [place] [address] [facility] Hospital ing:OLS.WHLCA Repository R 10/24/2018 [id number] Ambulatory [place] Michelle [address] [facility] Hospital ing:OLS.WHLCA Repository R 10/17/2018 [id number] Ambulatory BMSBuilding:B Michelle 6 [facility] Repository 10/17/2018 [id number] Ambulatory BMSBuilding:B [place] 5 [facility] Repository 10/17/2018 [id number] Ambulatory Michelle Michelle [address] [facility] Hospital ing:OLS.WHLCA Repository R 10/14/2018 [id number] Ambulatory Michelle Michelle [address] [facility] Hospital ing:OLS.WHLCA Repository R 10/10/2018 [id number] Ambulatory [place] Michelle [address] [facility] Hospital ing:OLS.WHLCA Repository R 10/03/2018 [id number] Ambulatory Michelle Michelle [address] [facility] Hospital ing:OLS.WHLCA Repository R 09/29/2018 [id number] [place]ulatory [place] [address] [facility] Hospital ing:OLS.WHLCA Repository R 09/26/2018 [id number] Ambulatory Michelle [place] [address] [facility] Hospital ing:OLS.WHLCA Repository R 09/19/2018 [id number] [facility] [place] [facility] Repository R 09/19/2018 [id number] Ambulatory Michelle [facility] 0 [facility] ing:[facility]S.WHLCA Repository R 09/12/2018 [id number] Ambulatory Michelle Michelle 8 [facility] Hospital ing:OLS.WHLCA Repository R 09/05/2018 [id number] Ambulatory Michelle [place] 8 [facility] Hospital ing:OLS.WHLCA Repository R 08/29/2018 [id number] Ambulatory Michelle Michelle 9 [facility] ing:OLS.WHLCA Repository R 08/22/2018 [id number] Ambulatory [place] Michelle 2 [facility] Hospital ing:OLS.WHLCA Repository R 08/15/2018 [id number] Ambulatory Michelle Michelle 2 [facility] Hospital ing:OLS.WHLCA Repository R 08/08/2018 [id number] Ambulatory Michelle [place] 1 [facility] Hospital ing:OLS.WHLCA Repository R 08/01/2018 [id number] [place]ulatory [place] 8 [facility] Hospital ing:OLS.WHLCA Repository R 07/30/2018 [id number] Ambulatory Michelle [place] 9 [facility] ing:OLS.WHLCA Repository R 07/22/2018 [id number] Ambulatory [place] Michelle 8 [facility] Hospital ing:OLS.WHLCA Repository R 07/18/2018 [id number] Ambulatory [place] Michelle 3 [facility] Hospital ing:OLS.WHLCA Repository R 07/14/2018 [id number] Ambulatory [place] [facility] 9 [facility] ing:OLS.WHLCA Repository R 07/11/2018 [id number] Ambulatory [place] 6 [facility] ing:OLS.WHLCA Repository R 07/07/2018 [id number] [place]ulatory [place] 7 [facility] ing:OLS.WHLCA Repository R 2018 [id number] Ambulatory [place] [facility] 0 [facility] ing:OLS.WHLCA Repository R 07/02/2018 [id number] [place]ulatory [place] [facility] ing:OLS.WHLCA Repository R 06/27/2018 [id number] Ambulatory Michelle [place] 3 [facility] Hospital ing:OLS.LCA Repository R 06/20/2018 [id number] Ambulatory Michelle [place] 9 [facility] Hospital ing:OLS.LCA Repository R 06/13/2018 [id number] Ambulatory [place] 1 [facility] Hospital ing:OLS.LCA Repository R 06/06/2018 [id number] Ambulatory [place] 4 [facility] Hospital ing:OLS.LCA Repository R 05/31/2018 [id number] Ambulatory [place] 8 [facility] Hospital ing:OLS.LCA Repository R 05/30/2018 [id number] Ambulatory [place] 5 [facility] Hospital ing:OLS.LCA Repository R 05/23/2018 [id number] Ambulatory Michelle [place] 2 [facility] Hospital ing:OLS.LCA Repository R 05/19/2018 [id number] Ambulatory [place] 5 [facility] Hospital ing:OLS.LCA Repository R 05/16/2018 [id number] Ambulatory Michelle Michelle 3 [facility] Hospital ing:OLS.LCA Repository R 05/13/2018 [id number] Ambulatory Michelle [place] 1 [facility] Hospital ing:OLS.LCA Repository R 05/12/2018 [id number] Ambulatory [place] Michelle 4 [facility] Hospital ing:OLS.LCA Repository R 05/09/2018 [id number] Ambulatory [place] 0 [facility] Hospital ing:OLS.LCA Repository R 04/06/2018 [id number] Ambulatory BMSBuilding:B [place] 3 [facility] Repository 03/07/2018 [id number] Ambulatory BMSBuilding:B [place] 8 [facility] Repository 03/07/2018/ [id number] Ambulatory BMSBuilding:B Michelle 8 0 [facility] Repository 03/07/2018/ [id number] Ambulatory BMSBuilding:B Michelle 8 2 [facility] Repository 03/05/2018 [id number] Ambulatory BMSBuilding:B Michelle 7 [facility] Repository 12/31/2017 [id number] Ambulatory [place] 4 [facility] ing:HPRAD Repository 12/31/2017 [id number] Ambulatory [place] Michelle 4 [facility] ing:HPRAD Repository 12/31/2017/ [id number] Ambulatory BMSBuilding:B [place] 8 8 [facility] Repository PAYERS PAYERS ENCOUNTER GUARANTOR PAYER SUBSCRIBER SOURCE 12/03/2018 ANNA [id number] Primary NOT GIVENUNK [place] Insurance:SELF PAY [address] [address]Yvk: (330) Number: Effective Repository [phone] () Date:2018-12-03 11/28/2018 Tay L Primary Sand[place] L [place] [id number] Insurance:MEDICARE LehmanDOB: [facility] PART A [facility] [id number], Number: [place]ository [place] [id number]: 330 [id number] [phone] () Date:2018-11-28 11/28/2018 Secondary Tay L [place] Insurance:PYRAMID [facility]: [facility] [id number] Hospital Number: Repository [id number] Date:[id number] [address]WB: 11/28/2018 Tertiary NOT GIVENUNK [place] Insurance:SELF PAY [facility] Number: Effective Repository Date:2018-11-28 11/07/2018 ANNA [id number] Primary [place] L Michelle [place] Insurance:MEDICARE LehmanDOB: [address], PART A [facility] [id number] Vista Hospital [address]Qka: (330) Number: Repository [phone] () [id number] Date:2018-11-07 11/07/2018 Secondary [place] L [place] Insurance:PYRAMID [facility]: [facility] [id number] Hospital Number: Repository [id number] Date:2018-11-07[address] [address]QXPDMCZBR, [place] [address]FT: 11/07/2018 Tertiary NOT GIVENUNK [place] Insurance:SELF PAY [facility] Number: Effective Repository Date:2018-11-07 10/31/2018 Tay L Primary [place] [id number] Insurance:PYRAMID [facility] [id number] [address], Number: [place]ository [place] [id number]: [phone] [id number] [phone] (HP) Date:2018-10-31[address] [address]QOMHEHOIJ, [place] [address]WG: 10/31/2018 Secondary Sandoval L Michelle Insurance:MEDICARE LeanDOB: Community PART A olicy [id number] Hospital Number: Repository [id number] Date:2018-10-31 10/31/2018 Tertiary NOT GIVENUNK Michelle Insurance:SELF PAY [facility] Hospital Number: Effective Repository Date:2018-10-31 10/24/2018 Sandoval L Primary [place] L Michelle [id number] Insurance:PYRAMID [facility] [id number] General Hospital [address], Number: [place]ository [place] [id number]: [phone] [id number] [phone] () Date:2018-10-24[address] [address]OGWTPHTNO, [place] [address]AX: 10/24/2018 Secondary [place] Insurance:MEDICARE LeanDOB: Community [facility] [id number] Hospital Number: Repository [id number] Date:2018-10-24 10/24/2018 Tertiary NOT GIVENUNK Michelle Insurance:SELF PAY [facility] Hospital Number: Effective Repository Date:2018-10-24 10/17/2018 ANNA [id number] Primary [place] [facility] Insurance:MEDICARE [facility] Claire[facility]: [address], PART A [facility] [id number] Vista Hospital [address]Guz: (330) Number: Repository [phone] () [id number] Date:2018-03-07 10/17/2018 Secondary [place] L Michelle Insurance:PYRAMID LehmanDOB: Community [facility] [id number] Hospital Number: Repository [id number] Date:7760-85-90[address] [address]BPRCKVEGR, [place] [address]BZ: 10/17/2018 Tertiary NOT GIVENUNK [place] Insurance:SELF PAY [facility] Hospital Number: Effective Repository Date:2018-03-07 10/17/2018 ANNA [id number] Primary [place] L [place] Insurance:MEDICARE LehmanDOB: [address], PART A [facility] [id number] Vista Hospital [address]Tuk: (330) Number: Repository [phone] () [id number] Date:2018-03-07 10/17/2018 Secondary Tay L [place] Insurance:PYRAMID LehmanDOB: Community LIFE INS [facility] [id number] Hospital Number: Repository [id number] Date:2699-89-67[address] [address]MDNVSIQXU, [place] [address]CN: 10/17/2018 Tertiary NOT GIVENUNK [place] Insurance:SELF PAY [facility] Hospital Number: Effective Repository Date:2018-03-07 10/17/2018 Sandoval L Primary [place] [id number] Insurance:COMMERCIAL LehmanDOB: [facility] Number: [id number] Medical CenterUN [address], [id number] Repository [place] [phone]: (330) Date:2018-10-17[phone] () [address] [address]OHBENTOCY, [place] [address]HJ: 10/17/2018 Secondary [place] L [place] Insurance:MEDICARE LeanDOB: Community PART A [facility] [id number] Hospital Number: Repository [id number] Date:2018-10-17 10/17/2018 Tertiary NOT GIVENUNK Michelle Insurance:SELF PAY [facility] Number: Effective Repository Date:2018-10-17 10/14/2018 Sandoval L Primary [place] Michelle [id number] Insurance:PYRAMID LeanDOB: [facility] [id number], Number: [place]ository [place] [id number]: [phone] [id number] [phone] () Date:2018-10-14[address] [address]ZIICPWFUH, [place] [address]RN: 10/14/2018 Secondary Tay L Michelle Insurance:MEDICARE LeanDOB: Community PART A [facility] [id number] Hospital Number: Repository [id number] Date:2018-10-14 10/14/2018 Tertiary NOT GIVENUNK Michelle Insurance:SELF PAY [facility] Number: Effective Repository Date:2018-10-14 10/10/2018 Sandoval L Primary [place] [id number] Insurance:MEDICARE LehmanDOB: [facility] PART A [facility] [id number], Number: [place] [id number]: 330 [id number] [phone] () Date:2018-10-10 10/10/2018 Secondary Sandoval L Michelle Insurance:[facility]: [facility] [id number] Hospital Number: Repository [id number] Date:2018-10-10[address] [address]FELBWMRJD, [place] [address]KA: 10/10/2018 Tertiary NOT GIVENUNK [place] Insurance:SELF PAY [facility] Number: Effective Repository Date:2018-10-10 10/03/2018 Tay L Primary [place] L [place] [id number] Insurance:MEDICARE LehmanDOB: [facility] PART A [facility] [id number], Number: [place]ository [place] [id number]: [phone] [id number] [phone] () Date:2018-10-03 10/03/2018 Secondary Tay L [place] Insurance:PYRAMID LeanDOB: [facility] LIFE [facility] [id number] Hospital Number: Repository [id number] Date:[address] [address]MOXSEOUMW, [place] [address]ZE: 10/03/2018 Tertiary NOT GIVENUNK Michelle Insurance:SELF PAY [facility] Number: Effective Repository Date:2018-10-03 09/29/2018 Tay L Primary [place] [id number] Insurance:MEDICARE LehmanDOB: Community [place] PART A [facility] [id number] Medical CenterUN [address], Number: [place]ository [place] [id number]: 330 [id number] [phone] () Date:2018-09-29 09/29/2018 Secondary [place] L Michelle Insurance:[facility]YRAMID [facility] [id number] Hospital Number: Repository [id number] Date:2018-09-29[address] [address]RNHPRFFEC, [place] [address]LF: 09/29/2018 Tertiary NOT GIVENUNK [place] Insurance:SELF PAY [facility] Number: Effective Repository Date:2018-09-29 09/26/[address] [id number] Primary [place] L [place] Insurance:MEDICARE LehmanDOB: [address], PART A [facility] [id number] Vista Hospital [address]Lap: (330) Number: Repository [phone] () [id number] Date:2018-09-26 09/26/2018 Secondary Sandoval L Michelle Insurance:PYRAMID [facility]: [facility] [id number] Hospital Number: Repository [id number] Date:9660-20-58WF [address] [address]DFRARKGMA, [place] [address]PG: 09/26/2018 Tertiary NOT GIVENUNK Michelle Insurance:SELF PAY [facility] Hospital Number: Effective Repository Date:2018-09-26 09/19/[address] [facility] [id number] Primary Tay L [place] Insurance:MEDICARE LeanDOB: [address], PART A [facility] [id number] Vista Hospital [address]Axx: (330) Number: Repository [phone] () [id number] Date:2018-09-19 09/19/2018 Secondary Sandoval L Michelle Insurance:PYRAMID [facility]: [facility] [id number] Hospital Number: Repository [id number] Date:9841-98-19CH [address] [address]CSIDPCFBX, [place] [address]YS: 09/19/2018 Tertiary NOT GIVENUNK [place] Insurance:SELF PAY [facility] Number: Effective Repository Date:2018-09-19 09/19/2018 Sandoval L Primary [place] L [place] [id number] Insurance:MEDICARE LeanDOB: [facility] PART A [facility] [id number], Number: [place]ository [place] [id number]: 330 [id number] [phone] () Date:2018-09-19 09/19/2018 Secondary Sandoval L Michelle Insurance:PYRAMID [facility]: [facility] [id number] Hospital Number: Repository [id number] Date:0630-50-87VW [address] [address]OWLSSDBIO, [place] [address]OL: 09/19/2018 Tertiary NOT GIVENUNK [place] Insurance:SELF PAY [facility] Number: Effective Repository Date:2018-09-19 09/12/[address] [facility] W[facility] [id number] Primary [place] L [place] Insurance:MEDICARE LeanDOB: [address], PART A [facility] [id number] Vista Hospital [address]Opw: (330) Number: Repository [phone] () [id number] Date:2018-09-12 09/12/2018 Secondary Sandoval L Michelle Insurance:PYRAMID [facility]: [facility] [id number] Hospital Number: Repository [id number] Date:5585-35-58RH [address] [address]LTAPKEARL, [place] [address]YJ: 09/12/2018 Tertiary NOT GIVENUNK [place] Insurance:SELF PAY [facility] Number: Effective Repository Date:2018-09-12 09/05/2018 ANNA [id number] Primary Tay L [place] Insurance:MEDICARE LeanDOB: [address], PART A [facility] [id number] Hospital [place] [address]Nbw: (455) Number: Repository [phone] () [id number] Date:2018-09-05 09/05/2018 Secondary [place] L [place] Insurance:[facility]: [facility] [id number] Hospital Number: Repository [id number] Date:9441-53-46PM [address] [address]ZNOEXYHRJ, [place] [address]HY: 09/05/2018 Tertiary NOT GIVENUNK Michelle Insurance:SELF PAY [facility] Number: Effective Repository Date:2018-09-05 08/29/2018 Sandoval L Primary Tay L [place] [id number] Insurance:MEDICARE LeanDOB: [facility] PART A [facility] [id number], Number: [place]ository [place] [id number]: [phone]) [id number] [phone] () Date:2018-08-29 08/29/2018 Secondary [place] L [place] Insurance:PYRAMID [facility]: [facility] [id number] Hospital Number: Repository [id number] Date:5894-11-92GG [address] [address]DJVKXDBXW, [place] [address]MP: 08/29/2018 Tertiary NOT GIVENUNK Michelle Insurance:SELF PAY [facility] Number: Effective Repository Date:2018-08-29 08/22/2018 Sandoval L Primary Tay L [place] [id number] Insurance:MEDICARE LeanDOB: [facility] PART A [facility] [id number], Number: [place]ository [place] [id number]: [phone]) [id number] [phone] () Date:2018-08-22 08/22/2018 Secondary [place] Insurance:[facility]: [facility] [id number] Hospital Number: Repository [id number] Date:4049-34-00RB [address] [address]AXXHNTFQY, [place] [address]NX: 08/22/2018 Tertiary NOT GIVENUNK Michelle Insurance:SELF PAY [facility] Number: Effective Repository Date:2018-08-22 08/15/2018 Tay L Primary [place] L [place] [id number] Insurance:MEDICARE LeanDOB: [facility] PART A [facility] [id number], Number: [place]ository [place] [id number]: 330 [id number] [phone] () Date:2018-08-15 08/15/2018 Secondary Sandoval L Michelle Insurance:[facility]: [facility] [id number] Hospital Number: Repository [id number] Date:4838-55-62VZ [address]EDHQKSTSW, [place] [address]NF: 08/15/2018 Tertiary NOT GIVENUNK [place] Insurance:SELF PAY [facility] Number: Effective Repository Date:2018-08-15 08/08/2018 ANNA [id number] Primary [place] L [place] [facility] Insurance:MEDICARE LeanDOB: [address], PART A [facility] [id number] Vista Hospital [address]Jsv: 330) Number: Repository [phone] () [id number] Date:2018-08-08 08/08/2018 Secondary Tay L [place] Insurance:[facility]: [facility] [id number] Hospital Number: Repository [id number] Date:8752-72-66FU [address] [address]YGHVPYPW, [place] [address]UU: 08/08/2018 Tertiary NOT GIVENUNK Michelle Insurance:SELF PAY [facility] Number: Effective Repository Date:2018-08-08 08/01/2018 Sandoval L Primary Tay L Michelle [id number] Insurance:MEDICARE LeanDOB: [facility] PART A [facility] [id number], Number: Repository [place] [id number]: 330 [id number] [phone] (HP) Date:2018-08-01 08/01/2018 Secondary Sandoval L Michelle Insurance:PYRAMID [facility]: [facility] [id number] Hospital Number: Repository [id number] Date:3710-67-66NX [address] [address]AVGXFKXJZ, [place] [address]WM: 08/01/2018 Tertiary NOT GIVENUNK Michelle Insurance:SELF PAY [facility] Number: Effective Repository Date:2018-08-01 07/30/2018 ANNA [id number] Primary Tay L Michelle [facility] Insurance:MEDICARE LeanDOB: [address] PART A [facility] [id number] Vista Hospital [address]Ror: 330) Number: Repository [phone] () [id number] Date:2018-07-30 07/30/2018 Secondary Tay L Michelle Insurance:[facility]: [facility] [id number] Hospital Number: Repository [id number] Date:5431-13-80PU [address] [address]WNWDNNCOF, [place] [address]AG: 07/30/2018 Tertiary NOT GIVENUNK Michelle Insurance:SELF PAY [facility] Number: Effective Repository Date:2018-07-30 07/22/2018 Sandoval L Primary Tay L [place] [id number] Insurance:MEDICARE LeanDOB: [facility] PART A [facility] [id number], Number: [place]ository [place] [id number]: 330 [id number] [phone] () Date:2018-07-22 07/22/2018 Secondary Tay L [place] Insurance:[facility]: [facility] Number: [id number] Hospital [id number] Repository Date:1604-33-38FK [address] [address]JYVDWFSPS [place] [address]KL: 07/22/2018 Tertiary NOT GIVENUNK [place] Insurance:SELF PAY [facility] Number: Effective Repository Date:2018-07-22 07/18/2018 Sandoval L Primary Sandoval L [place] [id number] Insurance:MEDICARE LeanDOB: [facility] [id number], Number: [place]ository [place] [id number]: [phone]) [id number] [phone] () Date:2018-07-18 07/18/2018 Secondary Tay L Michelle Insurance:PYRAMID [facility]: [facility] [id number] Hospital Number: Repository [id number] Date:1511-36-59MT [address] [address]NOBWPFXJC, [place] [address]FB: 07/18/2018 Tertiary NOT GIVENUNK Michelle Insurance:SELF PAY [facility] Number: Effective Repository Date:2018-07-18 07/14/2018 Sandoval L Primary Tay L Michelle [id number] Insurance:MEDICARE LehmanDOB: [facility] [id number], Number: [place]ository [place] [id number]: 330 [id number] [phone] () Date:2018-07-14 07/14/2018 Secondary Tay L [employer] [place] Insurance:PYRAMID [facility]: [facility] [id number] Hospital Number: Repository [id number] Date:3188-25-81GE [address] [address]JJJEMBRTV, [place] [address]SY: 07/14/2018 Tertiary NOT GIVENUNK [place] Insurance:SELF PAY [facility] Number: Effective Repository Date:2018-07-14 07/11/2018 Sandoval L Primary Tay L Michelle [id number] Insurance:MEDICARE [facility]: [facility] [id number] [address], Number: Repository [place] [phone]: 330 [id number] [phone] () Date:2018-07-11 07/11/2018 Secondary Sandoval L [employer] Insurance:PYRAMID LehmanDOB: Community LIFE [facility]SP[employer] [id number] Hospital Number: Repository [id number] Date:2165-11-25PB [address] [address]DROY[place]LLD, [place] [address]FW: 07/11/2018 Tertiary NOT GIVENUNK [place] Insurance:SELF PAY [facility] Number: Effective Repository Date:2018-07-11 07/07/2018 [facility] [id number] Primary Tay L [employer] [place] Insurance:MEDICARE LehmanD[facility]: [facility] A [facility] [id number] Vista Hospital [address]Qez: (330) Number: Repository [phone] () [id number] Date:2018-07-07 07/07/2018 Secondary Sandoval L Michelle Insurance:PYRAMID LehmanDOB: Community LIFEPolicy Number: [id number] Hospital [id number] Repository Date:2651-35-30BP [address] [address]AINYSORZR, [place] [address]DN: 07/07/2018 Tertiary NOT GIVENUNK [place] Insurance:SELF PAY [facility] Number: Effective Repository Date:2018-07-[address] [id number] Primary Sand[place] L [place] Insurance:MEDICARE LehmanDOB: [facility] [address] [place] [address], PART A [facility] [id number] Hospital [place] [address]Edj: (330) Number: Repository [phone] () [id number] Date:2018 2018 Secondary Sandoval L [employer] [place] Insurance:PYRAMID LeanDOB: Community LIFE INS [employer].Policy [id number] Hospital Number: Repository [id number] Date:9328-70-78LG [address] [address]AXOYAPYRZ, [place] [address]LN: 2018 Tertiary NOT GIVENUNK [place] Insurance:SELF PAY [facility] Number: Effective Repository Date:2018 07/02/2018 ANNA [id number] Primary Sandoval L Michelle [place] Insurance:MEDICARE LehmanDOB: [facility] [address], [place] olic [id number] [place] [address]Wol: (330) Number: Repository [phone] () [id number] Date:2018-07-02 07/02/2018 Secondary Sandoval L [employer] [place] Insurance:PYRAMID LehmanDOB: [facility] [id number] Hospital Number: Repository [id number] Date:2328-88-67FR [address] [address]WBCDMDIE, [place] [address]OV: 07/02/2018 Tertiary NOT GIVENUNK [place] Insurance:SELF PAY [facility] Number: Effective Repository Date:2018-07-02 06/27/2018 [facility] [id number] Primary [place] L [employer] [place] Insurance:MEDICARE LehmanDOB: Community [address], [place] [facility] [id number] Vista Hospital [address]Sbr: (330) Number: Repository [phone] () [id number] Date:2018-06-27 06/27/2018 Secondary Sandoval L [employer] [place] Insurance:PYRAMID LehmanDOB: [facility] LIFE [facility] [id number] Hospital Number: Repository [id number] Date:3765-26-59VJ [address] [address]YAPNQBNYP, [place] [address]LQ: 06/27/2018 Tertiary NOT GIVENUNK Michelle Insurance:SELF PAY [facility] Hospital Number: Effective Repository Date:2018-06-27 06/20/2018 [facility] [id number] Primary [place] L [employer] [place] Insurance:MEDICARE LehmanDOB: Community [address], [place] A [facility] [id number] [place] [address]Xeo: (330) Number: Repository [phone] () [id number] Date:2018-06-20 06/20/2018 Secondary [place]oval L [employer] [place] Insurance:PYRAMID LehmanDOB: Community LIFE INS CO.Policy [id number] Hospital Number: Repository [id number] Date:2187-89-27DI [address] [address]EJQVLEKGJ, [place] [address]KG: 06/20/2018 Tertiary NOT GIVENUNK [place] Insurance:SELF PAY [facility] Number: Effective Repository Date:2018-06-20 06/13/2018 ANNA [id number] Primary [place] L [employer] [place] Insurance:MEDICARE LehmanDOB: Community [address], PART A [facility] [id number] Vista Hospital [address]Lts: (330) Number: Repository [phone] () [id number] Date:2018-06-13 06/13/2018 Secondary Tay L Michelle Insurance:PYRAMID LehmanDOB: Community LIFE INS COPolicy [id number] Hospital Number: Repository [id number] Date:0829-15-60RR [address] [address]MBAWAEZN [place] [address]TR: 06/13/2018 Tertiary NOT GIVENUNK Michelle Insurance:SELF PAY [facility] Number: Effective Repository Date:2018-06-13 06/06/2018 Tay L Primary Sandoval L Michelle [id number] Insurance:MEDICARE LehmanDOB: Community [place] [facility] [id number], Number: Repository [place] [id number]: 330 [id number] [phone] () Date:2018-06-06 06/06/2018 Secondary Tay L [employer] [place] Insurance:PYRAMID LehmanDOB: Community [employer] INSP[employer] [id number] Hospital Number: Repository [id number] Date:6725-75-90XH [address] [address]VXFJJDKME, [place] [address]JL: 06/06/2018 Tertiary NOT GIVENUNK [place] Insurance:SELF PAY [facility] Number: Effective Repository Date:2018-06-06 05/31/2018 ANNA [id number] Primary Tay L [employer] [place] Insurance:MEDICARE LehmanDOB: Community [address], PART A [facility] [id number] Vista Hospital [address]Dry: (330) Number: Repository [phone] () [id number] Date:2018-05-31 05/31/2018 Secondary Sandoval L [place] Insurance:PYRAMID LeanDOB: Community LIFE INS [facility] [id number] Hospital Number: Repository [id number] Date:6538-66-67KL [address] [address]IBGIYUVEO, [place] [address]DB: 05/31/2018 Tertiary NOT GIVENUNK [place] Insurance:SELF PAY [facility] Number: Effective Repository Date:2018-05-31 05/30/2018 Sandoval L Primary Sandoval L Michelle [id number] Insurance:MEDICARE LehmanDOB: Community [place] PART A [facility] [id number], Number: [place]ository [place] [phone]: 330) [id number] [phone] () Date:2018-05-30 05/30/2018 Secondary Tay L Michelle Insurance:PYRAMID [facility] LIFE [facility] [id number] Hospital Number: Repository [id number] Date:4651-81-75DB [address] [address]MZPHGSXPF, [place] [address]NS: 05/30/2018 Tertiary NOT GIVENUNK Michelle Insurance:SELF PAY [facility] Number: Effective Repository Date:2018-05-30 05/23/2018 ANNA [id number] Primary Sandoval L Michelle [place] Insurance:MEDICARE LehmanDOB: Community [facility] 151[facility], PART A [facility] [id number] Vista Hospital [address]Ymh: (330) Number: Repository [phone] () [id number] Date:2018-05-23 05/23/2018 Secondary NOT GIVENUNK [place] Insurance:SELF PAY [facility] Number: Effective Repository Date:2018-05-23 05/19/2018 ANNA [id number] Primary Sandoval L Michelle [place] Insurance:MEDICARE LehmanDOB: Community [address], [place] A [facility] [id number] Hospital [place] [address]Vlv: (330) Number: Repository [phone] () [id number] Date:2018-05-19 05/19/2018 Secondary Sandoval L Michelle Insurance:PYRAMID LehmanDOB: Community LIFE INS [facility] [id number] Hospital Number: Repository [id number] Date:0165-51-20TI [address] [address]RFFXKMFQW, [place] [address]GW: 05/19/2018 Tertiary NOT GIVENUNK Michelle Insurance:SELF PAY [facility] Number: Effective Repository Date:2018-05-19 05/16/2018 [facility] [id number] Primary Tay L Michelle [place] Insurance:MEDICARE LehmanDOB: [place] [address], [place] A [facility] [id number] Vista Hospital [address]Wcv: (330) Number: Repository [phone] () [id number] Date:2018-05-16 05/16/2018 Secondary Tay L [place] Insurance:PYRAMID LeanDOB: Community LIFE INS [facility] [id number] Hospital Number: Repository [id number] Date:8751-20-53ZH [address] [address]NYJKHJMJD, [place] [address]TZ: 05/16/2018 Tertiary NOT GIVENUNK [place] Insurance:SELF PAY [facility] Hospital Number: Effective Repository Date:2018-05-16 05/13/2018 [facility] [id number] Primary [place] L [employer] [place] Insurance:MEDICARE LehmanDOB: Community [address], [place] A [facility] [id number] Hospital [place] [address]Yjj: (330) Number: Repository [phone] () [id number] Date:2018-05-13 05/13/2018 Secondary Tay L [place] Insurance:PYRAMID LehmanDOB: [facility] [id number] Hospital Number: Repository [id number] Date:8035-38-03VU [address] [address]LLKILTAYV, [place] [address]AC: 05/13/2018 Tertiary NOT GIVENUNK Michelle Insurance:SELF PAY [facility] Number: Effective Repository Date:2018-05-13 05/12/2018 [facility] [id number] Primary Tay L [employer] [place] Insurance:MEDICARE LehmanDOB: Community [address], [place] A [facility] [id number] Vista Hospital [address]Fnf: (330) Number: Repository [phone] () [id number] Date:2018-05-12 05/12/2018 Secondary Sandoval L [place] Insurance:PYRAMID LeanDOB: Community LIFE INS [facility] [id number] Hospital Number: Repository [id number] Date:7055-21-65VE [address] [address]ELLGAEURW, [place] [address]XZ: 05/12/2018 Tertiary NOT GIVENUNK Michelle Insurance:SELF PAY [facility] Number: Effective Repository Date:2018-05-12 05/09/2018 [id number] [place] [facility] [place] Insurance:MEDICARE LehmanDOB: Community [address], PART A [facility] [id number] Vista Hospital [address]Wcj: (330) Number: Repository [phone] () [id number] Date:2018-05-09 05/09/2018 Secondary Sandoval L Michelle Insurance:PYRAMID LehmanDOB: Community LIFE INS [facility] [id number] Hospital Number: Repository [id number] Date:1074-28-10WN [address] [address]OWPHVVTLG, [place] [address]HX: 05/09/2018 Tertiary NOT GIVENUNK Michelle Insurance:SELF PAY [facility] Hospital Number: Effective Repository Date:2018-05-09 04/06/2018 [facility] Primary TAY L [place] Insurance:MEDICARE LEHMANDOB: Community [address], [place] A [facility] [id number] Vista Hospital [address]Yre: (330) Number: Repository [phone] () [id number] Date:2017-12-31 04/06/2018 Secondary TAY L [place] Insurance:PYRAMID LEHMANDOB: Community LIFE INS [facility] [id number] Hospital Number: Repository [id number] Date:2077-84-03QR [address] [address]KVEDHJERX, [place] [address]AJ: 04/06/2018 Tertiary NOT GIVENUNK Michelle Insurance:SELF PAY [facility] Hospital Number: Effective Repository Date:2017-12-31 03/07/2018 Sandoval L Primary Sandoval L [employer] [place] [id number] Insurance:PYRAMID LeanDOB: Community [place] LIFE INS [facility] [id number] [facility] [address], Number: [place]ository [place] [id number]: 330 [id number] [phone] () Date:4905-04-66EF [address] [address]BBWJAPTYA, [place] [address]GX: 03/07/2018 Secondary Sandoval L Michelle Insurance:MEDICARE LeanDOB: Community PART A [facility] [id number] Hospital Number: Repository [id number] Date:2017-11-01 03/07/2018 Tertiary NOT GIVENUNK Michelle Insurance:SELF PAY [facility] Number: Effective Repository Date:2017-11-01 03/07/2018 [facility] Primary TAY L [place] Insurance:MEDICARE LEANDOB: [address], PART A [facility] [id number] Vista Hospital [address]Geb: (330) Number: Repository [phone] () [id number] Date:2018-01-21 03/07/2018 Secondary TAY L Michelle Insurance:PYRAMID LEANDOB: Community LIFE INS [facility] [id number] Hospital Number: Repository [id number] Date:4765-49-00BS [address] [address]JIUEHHEGG, [place] [address]QS: 03/07/2018 Tertiary NOT GIVENUNK Michelle Insurance:SELF PAY [facility] Hospital Number: Effective Repository Date:2018-03-07 03/07/2018 [facility] Primary TAY L [place] Insurance:MEDICARE LEANDOB: Community [address], PART A [facility] [id number] Vista Hospital [address]Vhx: (330) Number: Repository [phone] () [id number] Date:2017-11-01 03/07/2018 Secondary TAY L Michelle Insurance:PYRAMID LEANDOB: [facility] LIFE [facility] [id number] Hospital Number: Repository [id number] Date:2860-67-40TT [address] [address]PHLDGMMDL, [place] [address]SC: 03/07/2018 Tertiary NOT GIVENUNK Michelle Insurance:SELF PAY [facility] Number: Effective Repository Date:2018-03-07 03/05/2018 [facility] [id number] Primary TAY L [employer] [place] Insurance:MEDICARE LEANDOB: [facility] [address] A [facility] [id number] Vista Hospital [address]Cth: (330) Number: Repository [phone] () [id number] Date:2018-03-05 03/05/2018 Secondary TAY L Michelle Insurance:PYRAMID [facility]INGTON[facility] [id number] Hospital Number: Repository [id number] Date:4170-55-79LF [address] [address]FLBGRARKV, [place] [address]LV: 03/05/2018 Tertiary NOT GIVENUNK [place] Insurance:SELF PAY [facility] Number: Effective Repository Date:2018-03-05 12/31/2017 [facility] [id number] Primary NOT GIVENUNK Michelle [place] Insurance:SELF PAY [facility] [address] [place] [address]Fsk: (330) Number: Effective Repository [phone] () Date:2017-12-31 12/31/2017 [facility] [id number] Primary TAY L Michelle [place] Insurance:MEDICARE LEANDOB: [facility] [address] A [facility] [id number] Vista Hospital [address]Aah: (330) Number: Repository [phone] () [id number] Date:2017-12-31 12/31/2017 Secondary TAY L [place] Insurance:PYRAMID LEHMANDOB: Community LIFE INS [facility] [id number] Hospital Number: Repository [id number] Date:1532-85-96TE [address] [address]LLCYVVIIT, [place] [address]PS: 12/31/2017 Tertiary NOT GIVENUNK [place] Insurance:SELF PAY [facility] Hospital Number: Effective Repository Date:2017-12-31 12/31/2017 ANNA [id number] Primary [facility]AY L [facility]ARE LEANDOB: Community [address] [place] [facility] [id number] [place] [id number]: (330) Number: Repository [phone] () [id number] Date:2017-12-07 12/31/2017 Secondary TAY L [place] Insurance:PYRAMID LEHMANDOB: Community LIFE [facility] [id number] Hospital Number: Repository [id number] Date:1388-12-92ZW [address] [address]GBQUKPPQB, [place] [address]VT: 12/31/2017 Tertiary NOT GIVENUNK [place] Insurance:SELF PAY [facility] Number: Effective Repository Date:2017-12-07
== END ==
LOC: OLS.WHLCAR 05:43
PROVIDERS: Visit Provider Family Medicine
DX: E78.5 Hyperlipidemia, unspecified (principal); D64.9 Anemia, unspecified; F03.90 Unspecified dementia, unspecified severity, without behavioral disturbance, psychotic disturbance, mood disturbance, and anxiety; Z79.01 Long term (current) use of anticoagulants
CPT/HCPCS: 36415; 85610

== ENCOUNTER → 2018-11-28 04:00 | Outpatient (REF) | payer MEDICARE, OTHER, SELFPAY ==
[2018-11-28 07:17] LABS: Hematocrit 38.8 % (40-54); Hemoglobin 12.6 g/dl (13.0-16.5); Mean Corp Hgb Conc 32.5 g/gl (32-36); Mean Corpuscular Hgb 30.1 pg (27.0-32.0); Mean Corpuscular Volume 92.6 fL (80-94); Mean Platelet Vol. 9.8 fl (6.2-12.0); Platelet Count 168 K/mm3 (150-450); RBC Distribution Width CV 15.8 % (11.6-14.6); RBC Distribution Width SD 53.4 fl (35.1-43.9); Red Blood Count 4.19 M/mm3 (4.6-6.2); White Blood Count 5.7 K/mm3 (4.4-11.0)
[2018-11-28 07:18] LABS: AST(SGOT) 21 U/L (15-37); Alanine Aminotransfer ALT/SGPT 16 U/L (16-61); Albumin, Serum 2.5 g/dL (3.2-5.0); Alkaline Phosphatase 56 U/L (45-117); Anion Gap 10 (5-15); BUN 12 mg/dL (7-18); BUN/Creat Ratio 18.8 RATIO (10-20); Bilirubin, Direct 0.15 mg/dL (0.00-0.30); Calcium,Total 8.3 mg/dL (8.5-10.1); Chloride 105 mmol/L (98-107); Cholesterol 93 mg/dL (200); Creatinine, Serum 0.64 mg/dL (0.70-1.30); EST Glomerular Filtration Rate 128 mL/min (>60); Est Glom Filt Rate - Afr Amer 154 mL/min (>60); Globulin 3.7 g/dL (2.2-4.2); Glucose 92 mg/dL (74-106); High Density Lipoprotein 33 mg/dL; Protein, Total 6.2 g/dL (6.4-8.2); Sodium Level 141 mmol/L (136-145); Triglycerides 64 mg/dL; Very Low Density Lipoprotein 13 mg/dL (5-40)
[2018-11-28 07:30] LABS: Scan Indicated on CBC? Y/N NO
== END ==
LOC: OLS.WHLCAR 04:00
PROVIDERS: Visit Provider Family Medicine
DX: I48.91 Unspecified atrial fibrillation (principal); D64.9 Anemia, unspecified; F03.90 Unspecified dementia, unspecified severity, without behavioral disturbance, psychotic disturbance, mood disturbance, and anxiety; E78.5 Hyperlipidemia, unspecified; Z79.01 Long term (current) use of anticoagulants
CPT/HCPCS: 36415; 80048; 80061; 80076; 85027

== ENCOUNTER → 2018-12-03 03:30 | Outpatient (REF) | payer MEDICARE, OTHER, SELFPAY | LOC: OLS.WHLCAR 03:30 | PROVIDERS: Visit Provider Family Medicine | DX: R31.9 Hematuria, unspecified (principal) | CPT/HCPCS: 87077; 87086; 87088; 87186 ==

== ENCOUNTER → 2019-01-23 04:00 | Outpatient (REF) | payer MEDICARE, OTHER, SELFPAY ==
[2019-01-23 08:51] LABS: Valproic Acid (Depakene) Level 29 ug/mL (50-100)
== END ==
LOC: OLS.WHLCAR 04:00
PROVIDERS: Visit Provider Family Medicine
DX: I48.91 Unspecified atrial fibrillation (principal); D64.9 Anemia, unspecified; F03.90 Unspecified dementia, unspecified severity, without behavioral disturbance, psychotic disturbance, mood disturbance, and anxiety; E78.5 Hyperlipidemia, unspecified
CPT/HCPCS: 36415; 80164

== ENCOUNTER → 2019-03-02 05:00 | Outpatient (REF) | payer MEDICARE, OTHER, SELFPAY ==
[2019-03-02 08:33] LABS: Hematocrit 43.9 % (40-54); Hemoglobin 13.9 g/dl (13.0-16.5); Mean Corp Hgb Conc 31.7 g/gl (32-36); Mean Corpuscular Hgb 30.3 pg (27.0-32.0); Mean Corpuscular Volume 95.6 fL (80-94); Platelet Count 223 K/mm3 (150-450); RBC Distribution Width CV 14.1 % (11.6-14.6); RBC Distribution Width SD 49.4 fl (35.1-43.9); Red Blood Count 4.59 M/mm3 (4.6-6.2)
[2019-03-02 08:42] LABS: Anion Gap 7 (5-15); BUN 8 mg/dL (7-18); BUN/Creat Ratio 11.2 RATIO (10-20); Chloride 100 mmol/L (98-107); Creatinine, Serum 0.71 mg/dL (0.70-1.30); EST Glomerular Filtration Rate 112 mL/min (>60); Est Glom Filt Rate - Afr Amer 136 mL/min (>60); Glucose 91 mg/dL (74-106); Sodium Level 135 mmol/L (136-145)
[2019-03-02 08:44] LABS: Scan Indicated on CBC? Y/N NO
== END ==
LOC: OLS.WHLCAR 05:00
PROVIDERS: Visit Provider Family Medicine
DX: I48.91 Unspecified atrial fibrillation (principal); D64.9 Anemia, unspecified; F03.90 Unspecified dementia, unspecified severity, without behavioral disturbance, psychotic disturbance, mood disturbance, and anxiety; E78.5 Hyperlipidemia, unspecified
CPT/HCPCS: 36415; 80048; 85027

== ENCOUNTER → 2019-03-28 06:24 | Outpatient (REF) | payer MEDICARE, OTHER, SELFPAY ==
[2019-03-28 07:48] LABS: Mucous, Urine 0 SEEN /hpf (<or=2+); Squamous Epithelial Cells - UA 0 SEEN /hpf (0-5)
[2019-03-28 08:08] LABS: Color, Urine Yellow (Yellow); Glucose, Dipstick Normal (Normal); Ketone-Dipstick Negative (Negative); Leukocyte Esterase-Dipstick 500 /ul (Negative); Nitrite-Dipstick Positive (Negative); Occult Blood-Urine 250 /ul (Negative); Protein-Dipstick 100 mg/dl (Negative); Specific Gravity, Urine 1.015 (1.002-1.030); Urine Bilirubin Dipstick Negative (Negative); Urine Clarity Sl. Cloudy (Clear); Urine Urobilinogen Normal (Normal)
[2019-03-28 08:09] LABS: Absolute Lymphocyte Count 1.42 X10^3/ul (0.83-4.51); Absolute Neutrophil Count 17.3 X10^3/uL (2.0-7.7); Basophil# 0.02 X10^3/uL; Basophil% 0.1 % (0-1); Eosinophil# 0.08 X10^3/uL; Eosinophils% 0.4 % (0-5); Hematocrit 49.5 % (40-54); Hemoglobin 15.6 g/dl (13.0-16.5); Lymphocyte # 1.42 X10^3/ul (4.0); Lymphocyte % 7.2 % (19-41); Mean Corp Hgb Conc 31.5 g/gl (32-36); Mean Corpuscular Hgb 30.4 pg (27.0-32.0); Mean Corpuscular Volume 96.5 fL (80-94); Mean Platelet Vol. 11.1 fl (6.2-12.0); Monocyte# 0.76 X10^3/uL; Monocyte% 3.9 % (0-10); Neutrophil # 17.32 X10^3/uL (2.7-7.7); Neutrophil % 88.2 % (47-70); Platelet Count 240 K/mm3 (150-450); RBC Distribution Width CV 14.8 % (11.6-14.6); RBC Distribution Width SD 52.5 fl (35.1-43.9); Red Blood Count 5.13 M/mm3 (4.6-6.2); White Blood Count 19.6 K/mm3 (4.4-11.0)
[2019-03-28 08:10] LABS: POSITIVE COUNT NO; POSITIVE DIFFERENTIAL NO; POSITIVE MORPHOLOGY NO
[2019-03-28 08:17] LABS: Anion Gap 9 (5-15); BUN 31 mg/dL (7-18); BUN/Creat Ratio 31.7 RATIO (10-20); Calcium,Total 8.7 mg/dL (8.5-10.1); Chloride 119 mmol/L (98-107); Creatinine, Serum 0.98 mg/dL (0.70-1.30); EST Glomerular Filtration Rate 78 mL/min (>60); Est Glom Filt Rate - Afr Amer 94 mL/min (>60); Glucose 124 mg/dL (74-106); Sodium Level 154 mmol/L (136-145)
[2019-03-28 08:45] LABS: Bacteria 1+ /hpf (None Seen); Red Blood Cells-Urine 25-50 SEEN /hpf (0-5); White Blood Cells 25-50 SEEN /hpf (0-5)
[2019-03-28 08:46] LABS: Triple Phosphate Crystals Ur 2+ /hpf (<or=1+)
== END ==
LOC: OLS.WHLCAR 06:24
PROVIDERS: Visit Provider Family Medicine
DX: N39.0 Urinary tract infection, site not specified (principal)
CPT/HCPCS: 36415; 80048; 81001; 85025; 87077; 87086; 87088; 87186